=== PATIENT | male | born 1940 | race Caucasian/White ===

== ENCOUNTER 2017-02-20 12:06 | Inpatient (IN) | payer MEDICARE, BC ==
[2017-02-20] MEDS ORDERED: IPRATROPIUM-ALBUTEROL 3 ML NEB INHALATION STA (12:31)
--- NOTE | 2017-02-20 12:34 | ED ---
General Adult HPI - General Chief complaint: Shortness of Breath Stated complaint: SOB Time Seen by Provider: 02/20/17 12:10 Source: patient, RN notes reviewed Mode of arrival: ambulatory Limitations: no limitations - History of Present Illness Initial comments: This is a 76-year-old male presents emergency department with past medical history significant for aortic valve replacement with a sending aortic repair for aneurysm. Patient comes in today because he began getting short of breath over the last 2 weeks she states he's noticed a little bit of increased swelling to his legs as well. Patient denies any chest pain or palpitations. Patient denies any recent fever chills or cough. 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 Patient denies any lightheadedness dizziness or near syncopal episode. Patient denies any abdominal pain patient denies nausea vomiting diarrhea. Patient went to see his vice president global advertising sales today and the vice president global advertising sales recommended he come to the emergency department immediately. - Related Data Home Medications Medication Instructions Recorded Confirmed Aspirin 81 mg PO DAILY 01/18/14 02/20/17 Amiodarone HCl [Pacerone] 200 mg PO DAILY 02/20/17 02/20/17 Atorvastatin [Lipitor] 20 mg PO HS 02/20/17 02/20/17 Metoprolol Tartrate [Lopressor] 50 mg PO BID 02/20/17 02/20/17 Vit C/E/Zn/Coppr/Lutein/Zeaxan 1 cap PO DAILY 02/20/17 02/20/17 [Preservision Areds 2 Softgel] Warfarin [Coumadin] 7.5 mg PO HS 02/20/17 02/20/17 amLODIPine [Norvasc] 5 mg PO DAILY 02/20/17 02/20/17 Allergies Allergy/AdvReac Type Severity Reaction Status Date / Time No Known Allergies Allergy Verified 02/20/17 13:06 Review of Systems ROS Statement: Those systems with pertinent positive or pertinent negative responses have been documented in the HPI. ROS Other: All systems not noted in ROS Statement are negative. Past Medical History Past Medical History: Hyperlipidemia, Hypertension Additional Past Medical History / Comment(s): Pt states he is to have possible valve replacement in near future History of Any Multi-Drug Resistant Organisms: None Reported Past Surgical History: Cardiac Valve Replacement, Heart Catheterization Additional Past Surgical History / Comment(s): colonoscopy, AVR WITH ANEURYSMORRHAPHY 03/08/[address] ARVIZU. Past Anesthesia/Blood Transfusion Reactions: No Reported Reaction Past Psychological History: No Psychological Hx Reported Smoking Status: Former smoker Past Alcohol Use History: Occasional Past Drug Use History: None Reported - Past Family History Mother Family Medical History: Cancer General Exam - General Exam Comments Initial Comments: GENERAL: Patient is well-developed and well-nourished. Patient is nontoxic and well- hydrated and is in mild distress. ENT: Neck is soft and supple. No significant lymphadenopathy is noted. Oropharynx is clear. Moist mucous membranes. Neck has full range of motion without eliciting any pain. EYES: The sclera were anicteric and conjunctiva were pink and moist. Extraocular movements were intact and pupils were equal round and reactive to light. Eyelids were unremarkable. PULMONARY: Patient is to manage breath sounds in the bases and some extra wheezing. CARDIOVASCULAR: There is a regular rate and rhythm without any murmurs gallops or rubs. ABDOMEN: Soft and nontender with normal bowel sounds. No palpable organomegaly was noted. There is no palpable pulsatile mass. SKIN: Skin is clear with no lesions or rashes and otherwise unremarkable. NEUROLOGIC: Patient is alert and oriented x3. Cranial nerves II through XII are grossly intact. Motor and sensory are also intact. Normal speech, volume and content. Symmetrical smile. MUSCULOSKELETAL: Normal extremities with adequate strength and full range of motion. 1+ edema bilaterally LYMPHATICS: No significant lymphadenopathy is noted PSYCHIATRIC: Normal psychiatric evaluation. Limitations: no limitations Course Vital Signs 02/20/17 02/20/17 02/20/17 12:09 12:16 12:47 Temperature 97.3 F L Pulse Rate 64 66 66 Respiratory 22 24 Rate Blood Pressure 150/81 158/94 O2 Sat by Pulse 85 L 94 L Oximetry 02/20/17 02/20/17 02/20/17 12:53 13:08 14:07 Temperature 98.5 F Pulse Rate 66 63 65 Respiratory 17 17 Rate Blood Pressure 133/83 141/88 O2 Sat by Pulse 92 L 91 L Oximetry Medical Decision Making - Medical Decision Making EKG shows sinus rhythm at 64 bpm MS interval is 278 QRSs 120 QT intervals 426 QTC is 439. Patient's EKG shows no ST segment elevation or depression or T wave abnormalities are noted. Patient's chest x-ray shows congestive heart failure I started the patient Lasix Nitropaste. Because of the patient's history or so ordered the CT angiogram of the thoracic and abdominal aorta CT angiogram of the thoracic and abdominal aorta showed no dissection. However the patient does have congestive heart failure. I spoke with Dr. Crum he agreed to admit the patient admitted the patient I wrote admitting orders I continued Lasix Nitropaste on the floor. I consult to cardiology. - Lab Data Result diagrams: 02/20/17 12:45 02/20/17 12:45 Lab Results 02/20/17 02/20/17 02/20/17 Range/Units 12:45 12:45 12:45 WBC 6.5 (3.8-10.6) k/uL RBC 4.47 (4.30-5.90) m/uL Hgb 13.9 (13.0-17.5) gm/dL Hct 42.5 (39.0-53.0) % MCV 95.1 (80.0-100.0) fL MCH 31.1 (25.0-35.0) pg MCHC 32.7 (31.0-37.0) g/dL RDW 16.4 H (11.5-15.5) % Plt Count 194 (150-450) k/uL Neutrophils % 82 % Lymphocytes % 8 % Monocytes % 7 % Eosinophils % 1 % Basophils % 0 % Neutrophils # 5.3 (1.3-7.7) k/uL Lymphocytes # 0.5 L (1.0-4.8) k/uL Monocytes # 0.5 (0-1.0) k/uL Eosinophils # 0.0 (0-0.7) k/uL Basophils # 0.0 (0-0.2) k/uL Anisocytosis Slight PT (9.0-12.0) sec INR (<1.2) APTT (22.0-30.0) sec Sodium 137 (137-145) mmol/L Potassium 4.6 (3.5-5.1) mmol/L Chloride 103 (98-107) mmol/L Carbon Dioxide 29 (22-30) mmol/L Anion Gap 5 mmol/L BUN 15 (9-20) mg/dL Creatinine 0.72 (0.66-1.25) mg/dL Est GFR (MDRD) Af Amer >60 (>60 ml/min/1.73 sqM) Est GFR (MDRD) Non-Af >60 (>60 ml/min/1.73 sqM) Glucose 90 (74-99) mg/dL Calcium 8.4 (8.4-10.2) mg/dL Magnesium 2.0 (1.6-2.3) mg/dL Total Bilirubin 1.4 H (0.2-1.3) mg/dL AST 45 (17-59) U/L ALT 93 H (21-72) U/L Alkaline Phosphatase 62 (38-126) U/L Total Creatine Kinase 53 L (55-170) U/L CK-MB (CK-2) 2.0 (0.0-2.4) ng/mL CK-MB (CK-2) Rel Index 3.8 Troponin I <0.012 (0.000-0.034) ng/mL NT-Pro-B Natriuret Pep pg/mL Total Protein 6.0 L (6.3-8.2) g/dL Albumin 3.7 (3.5-5.0) g/dL 02/20/17 02/20/17 Range/Units 12:45 12:45 WBC (3.8-10.6) k/uL RBC (4.30-5.90) m/uL Hgb (13.0-17.5) gm/dL Hct (39.0-53.0) % MCV (80.0-100.0) fL MCH (25.0-35.0) pg MCHC (31.0-37.0) g/dL RDW (11.5-15.5) % Plt Count (150-450) k/uL Neutrophils % % Lymphocytes % % Monocytes % % Eosinophils % % Basophils % % Neutrophils # (1.3-7.7) k/uL Lymphocytes # (1.0-4.8) k/uL Monocytes # (0-1.0) k/uL Eosinophils # (0-0.7) k/uL Basophils # (0-0.2) k/uL Anisocytosis PT 39.4 H (9.0-12.0) sec INR 4.0 H (<1.2) APTT 44.2 H (22.0-30.0) sec Sodium (137-145) mmol/L Potassium (3.5-5.1) mmol/L Chloride (98-107) mmol/L Carbon Dioxide (22-30) mmol/L Anion Gap mmol/L BUN (9-20) mg/dL Creatinine (0.66-1.25) mg/dL Est GFR (MDRD) Af Amer (>60 ml/min/1.73 sqM) Est GFR (MDRD) Non-Af (>60 ml/min/1.73 sqM) Glucose (74-99) mg/dL Calcium (8.4-10.2) mg/dL Magnesium (1.6-2.3) mg/dL Total Bilirubin (0.2-1.3) mg/dL AST (17-59) U/L ALT (21-72) U/L Alkaline Phosphatase (38-126) U/L Total Creatine Kinase (55-170) U/L CK-MB (CK-2) (0.0-2.4) ng/mL CK-MB (CK-2) Rel Index Troponin I (0.000-0.034) ng/mL NT-Pro-B Natriuret Pep 1700 pg/mL Total Protein (6.3-8.2) g/dL Albumin (3.5-5.0) g/dL Critical Care Time Critical Care Time: Yes Total Critical Care Time: 35 Disposition Clinical Impression: Acute pulmonary edema Disposition: ADMITTED IP TO THIS HOSP Referrals: Timo Vega DO [Primary Care Provider] - 1-2 days Time of Disposition: 15:19
[2017-02-20 13:10] LABS: ALT 93 U/L (21-72); AST 45 U/L (17-59); Alkaline Phosphatase 62 U/L (38-126); Anion Gap 5 mmol/L; Blood Urea Nitrogen 15 mg/dL (9-20); Calcium 8.4 mg/dL (8.4-10.2); Carbon Dioxide 29 mmol/L (22-30); Chloride 103 mmol/L (98-107); Glucose 90 mg/dL (74-99); Non-African American GFR(MDRD) >60 (>60 ml/min/1.73 sqM); Potassium 4.6 mmol/L (3.5-5.1); Sodium 137 mmol/L (137-145); Total Bilirubin 1.4 mg/dL (0.2-1.3)
[2017-02-20 13:12] LABS: Partial Thromboplastin Time 44.2 sec (22.0-30.0); Prothrombin Time 39.4 sec (9.0-12.0)
[2017-02-20 13:17] LABS: Anisocytosis Slight; Basophils % (A) 0 %; CH 31.5; CHCM 33.3; Eosinophils % (A) 1 %; HCT 42.5 % (39.0-53.0); HDW 3.01; HGB 13.9 gm/dL (13.0-17.5); Luc # (Auto) 0.18; Luc % (Auto) 3; Lymphocytes # (A) 0.5 k/uL (1.0-4.8); Lymphocytes % (A) 8 %; MCH 31.1 pg (25.0-35.0); MCHC 32.7 g/dL (31.0-37.0); MCV 95.1 fL (80.0-100.0); Mean Platelet Volume 7.9; Monocytes # (A) 0.5 k/uL (0-1.0); Monocytes % (A) 7 %; Neutrophils # (A) 5.3 k/uL (1.3-7.7); Neutrophils % (A) 82 %; RBC 4.47 m/uL (4.30-5.90); RDW 16.4 % (11.5-15.5); WBC 6.5 k/uL (3.8-10.6); WBC (Perox) 6.92
[2017-02-20 13:18] LABS: Creatine Kinase 53 U/L (55-170)
[2017-02-20 13:32] LABS: Troponin I <0.012 ng/mL (0.000-0.034)
--- NOTE | 2017-02-20 13:42 | XR ---
EXAMINATION TYPE: XR chest 2V DATE OF EXAM: 02/20/2017 COMPARISON: 03/11/2014 HISTORY: 76-year-old male difficulty breathing TECHNIQUE: PA and lateral views FINDINGS: Median sternotomy wires are present. There is a prosthetic cardiac valve with mild cardiomegaly, diff use interstitial opacities, Nora B lines, and small pleural effusions with adjacent opacity. IMPRESSION: 1. CHF with interstitial pulmonary edema. 2. Small pleural effusions with adjacent atelectasis and/or consolidation.
[2017-02-20] MEDS ORDERED: NITROGLYCERIN OINT 1 INCH/GM PACKET TOPICAL STA (14:09)
[2017-02-20] MEDS ORDERED: FUROSEMIDE 10 MG/ML 4 ML VIAL IV STA (14:09)
[2017-02-20] MEDS ORDERED: RX INFO: IV CONTRAST WAS GIVEN 1 EACH MISC MISCELLANE PRN (14:10)
--- NOTE | 2017-02-20 15:22 | CT ---
EXAMINATION TYPE: CT angio thoracic/abd aorta DATE OF EXAM: 02/20/2017 COMPARISON: CT chest 01/26/2014 HISTORY: 76-year-old male SOB, history of valve replacement TECHNIQUE: Contiguous axial scanning of the chest, abdomen, and pelvis performed without and with IV Contrast, patient injected with 100 mL of Omnipaque 350. Coronal and sagittal MIP reconstructions per formed. 3-D reconstructions generated on a dedicated independent workstation. CT DLP: [id number] mGycm Automated exposure control for dose reduction was used. FINDINGS: CHEST: Median sternotomy wires are present with post-CABG changes and mediastinum. The heart is mildly enlarged without pericardial effusion.. Ascending aorta is aneurysmal at 5.8 cm versus 5.7 cm on 01/26/2014. Proximal arch measures 4.4 cm versus 4.3 cm on 01/26/2014. Upper descending thoracic aorta measures 3.7 cm versus 3.6 cm on 01/26/2014. The distal abdominal aorta is mildly aneurysmal at 3.1 cm. Initial noncontrast series shows no evidence for acute intramural hematoma. There is no evidence for aortic dissection. Enlarged precarinal lymph node measures 1.7 cm, increased in size from prior. Additional nonenlarged mediastinal lymph nodes also show increase in size from prior exam. Evaluation of the lungs shows underlying centrilobular emphysema with small right and trace left pleu ral effusions. There is bibasilar consolidation and patchy mid to lower lung groundglass and some upp er lung septal lines. Large caliber to the main right and left pulmonary artery segment 3.4 and 3.0 cm, respectively, sugge sting underlying pulmonary arterial hypertension. ABDOMEN: Early arterial phase imaging of the liver, gallbladder, adrenal glands, kidneys, spleen with tiny ant erior splenules, and pancreas show no gross anomaly. No dilated small bowel, free fluid, or free air. Normal appendix. Scattered moderate stool within the right hemicolon. Mild sigmoid diverticulosis with a redundant sigmoid colon. No mesenteric or retroperitoneal lymphadenopathy. Tortuous abdominal aorta with moderate atherosclerotic calcifications. 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 Pelvis: Bladder is urine distended. Prostate gland is enlarged measuring 4.7 cm wide. No abnormal fluid colle ction in the pelvis or pelvic lymphadenopathy. Bones: Moderate to advanced degenerative changes mid to lower lumbar spine with grade 1 anterolisthesis at L 4-L5. Endplate spondylosis mid to lower thoracic spine. No osseous destructive process. IMPRESSION: 1. NO EVIDENCE FOR ACUTE INTRAMURAL HEMATOMA OR AORTIC DISSECTION. 2. 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 THESE ARE ONLY A MILLIMETER LARGER COMPARED TO 01/26/2014. 3. 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 4. CORRELATE FOR CHF AND INTERSTITIAL PULMONARY EDEMA. SMALL RIGHT AND TRACE LEFT PLEURAL EFFUSIONS. 5. FOCAL CONSOLIDATION AT BOTH LUNG BASES COULD REPRESENT MORE CONFLUENT PULMONARY EDEMA OR PNEUMONIA . CLINICALLY CORRELATE. 6. AN ENLARGED 1.7 CM PRECARINAL LYMPH NODE IS LIKELY REACTIVE.
[2017-02-20] MEDS: NITROGLYCERIN OINT 1 INCH/GM PACKET TOPICAL SCH ×2 (20:05→22:06)
[2017-02-20] MEDS: METOPROLOL TARTRATE 50 MG TAB PO SCH (22:05)
[2017-02-20] MEDS: ATORVASTATIN 20 MG TAB PO SCH (22:05)
[2017-02-20] MEDS: FUROSEMIDE 10 MG/ML 4 ML VIAL IV SCH (23:47)
[2017-02-21 06:31] LABS: INR 3.6 (<1.2); Prothrombin Time 35.4 sec (9.0-12.0)
[2017-02-21] MEDS: ASPIRIN 81 MG PO SCH (07:38)
[2017-02-21] MEDS: METOPROLOL TARTRATE 50 MG TAB PO SCH (07:38)
[2017-02-21] MEDS: VIT A,C & E-LUTEIN-MINERALS 1 EACH TAB PO SCH (07:38)
[2017-02-21] MEDS: AMIODARONE 200 MG TAB PO SCH (07:38)
[2017-02-21] MEDS: amLODIPine 5 MG TAB PO SCH (07:38)
[2017-02-21] MEDS: FUROSEMIDE 10 MG/ML 4 ML VIAL IV SCH ×3 (07:38→21:06)
[2017-02-21] MEDS: NITROGLYCERIN OINT 1 INCH/GM PACKET TOPICAL SCH ×3 (07:42→21:21)
--- NOTE | 2017-02-21 09:09 | HP ---
DATE OF SERVICE: 02/20/2017 CHIEF COMPLAINT: Shortness of breath. HISTORY OF PRESENT ILLNESS: This 76-year-old gentleman with a past medical history of multiple medical problems including hypertension, hyperlipidemia, history of cardiac valve replacement, aortic valve replacement, history of aneurysmorrhaphy with Dr. Buckner in [address] Vega in the outpatient setting complaining of shortness of breath throughout the past several days. The patient had increased shortness of breath especially on exertion. The patient also had bilateral leg swelling also. The patient came to [facility]. Chest x-ray was reviewed, which showed evidence of CHF with interstitial pulmonary edema and small pleural effusion. Patient was admitted for further evaluation and treatment. A thoracic aortic CT was also done. It showed aneurysmal thoracic aorta with ascending aorta measuring up to 5.8 cm. 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 There is no history of any fever or rigors. No history of headache, loss of consciousness or seizures. PAST MEDICAL HISTORY: Hypertension, hyperlipidemia, history of aortic valve replacement with aneurysmorrhaphy. Medications prior to admission: 1. Coumadin 7.5 mg q.h.s. 2. Vitamin C. 3. Lipitor 20 mg q.h.s. 4. Pacerone 200 mg p.o. daily. 5. Norvasc 5 mg p.o. daily. 6. Lopressor 50 mg b.i.d. 7. Aspirin 81 mg daily. Allergies are none. FAMILY HISTORY: History of cancer in the family. SOCIAL HISTORY: Previous history of smoking. No history of current smoking. REVIEW OF SYSTEMS: ENT: No diminished hearing or diminished vision. CARDIOVASCULAR SYSTEM: No angina or palpitations. RESPIRATORY SYSTEM: No cough or hemoptysis. GI: No nausea. : No dysuria. NERVOUS SYSTEM: No numbness or weakness. ALLERGIES/IMMUNOLOGY: No history of asthma or hayfever. MUSCULOSKELETAL: As mentioned earlier. HEMATOLOGY/ONCOLOGY: No history of anemia. ENDOCRINE: No history of diabetes or hypothyroidism. CONSTITUTIONAL: As mentioned earlier. DERMATOLOGY: Negative. RHEUMATOLOGY: Negative. PSYCHIATRY: As mentioned earlier. PHYSICAL EXAM: The patient is alert and oriented x3. Pulse is 72, blood pressure 137/89, respirations 18, temperature 96.8, pulse ox 92% on 4 L. HEENT: Conjunctivae normal. NECK: No jugular venous distention. CARDIOVASCULAR: S1 and S2 muffled. Ejection systolic murmur. RESPIRATORY: Breath sounds diminished at the bases. Scattered rhonchi and crackles. ABDOMEN: Soft, nontender. No mass palpable. LEGS: Bilateral leg edema. NERVOUS SYSTEM: Higher function as mentioned earlier. Moves all 4 limbs. No focal motor or sensory deficits. LYMPHATICS: No lymphadenopathy of the neck, axillae or groin. SKIN: No ulcers, rashes or bleeding. LABS: CBC within normal limits. INR is 4. The bilirubin is 1.4. ASSESSMENT: 1. Congestive heart failure, acute exacerbation, ejection fraction unknown. 2. Aortic valve replacement, status post. 3. Coumadin monitoring. 4. History of hypertension. 5. Hyperlipidemia. 6. History of aneurysmorrhaphy for aortic aneurysm. 7. Remote history of nicotine dependence. RECOMMENDATIONS AND DISCUSSION: This 76-year-old gentleman presented with multiple complex medical issues. Will monitor the patient closely. Continue the current medications. Continue symptomatic treatment. Will initiate diuretics and beta blockers and continue to monitor. A 2-D echo. Cardiology consultations. Guarded prognosis because of multiple complex medical issues. Further recommendation to follow. See orders for details. MTDD
--- NOTE | 2017-02-21 11:10 | ECHOF ---
Referral Reason:[facility] MEASUREMENTS -------- HEIGHT: 175.3 cm WEIGHT: 98.0 kg BP: 115/65 RVIDd: 3.4 cm (< 3.3) IVSd: 1.3 cm (0.6 - 1.1) LVIDd: 5.6 cm (3.9 - 5.3) LVPWd: 1.4 cm (0.6 - 1.1) IVSs: 1.5 cm LVIDs: 4.6 cm LVPWs: 1.6 cm LAESV Index (A-L): 41.56 ml/m Ao Diam: 4.9 cm (2.0 - 3.7) AV Cusp: 2.1 cm (1.5 - 2.6) LA Diam: 5.1 cm (2.7 - 3.8) MV EXCURSION: 18.351 mm (> 18.000) MV EF SLOPE: 78 mm/s (70 - 150) EPSS: 0.5 cm MV E Magen: 0.85 m/s MV DecT: 257 ms MV A Magen: 0.40 m/s MV E/A Ratio: 2.12 AV maxP.88 mmHg AV meanP.70 mmHg RAP: 5.00 mmHg RVSP: 23.22 mmHg FINDINGS -------- Sinus rhythm. This was a technically adequate study. There is mild concentric left ventricular hypertrophy. Overall left ventricular systolic function is low-normal with, an EF between 50 - 55 %. Mitral Doppler inflow pattern suggests diastolic filling abnormality 14.11. The right ventricle is normal in size. LA is severely dilated >40 ml/m2 The right atrial size is normal. Peak/mean gradient across the Aortic Valve is 18.88mmHg / 10.70mmHg. Normally functioning bioprosthetic valve. Mild mitral annular calcification present. Moderate mitral regurgitation is present. Mild tricuspid regurgitation present. There is no evidence of pulmonary hypertension. The right ventricular systolic pressure, as measured by Doppler, is 23.22mmHg. Trace/mild (physiologic) pulmonic regurgitation. 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 There is no pericardial effusion. CONCLUSIONS -------- 1. There is mild concentric left ventricular hypertrophy. 2. There is no evidence of pulmonary hypertension. 3. The right ventricular systolic pressure, as measured by Doppler, is 23.22mmHg. 4. Trace/mild (physiologic) pulmonic regurgitation. 5. 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 6. There is no pericardial effusion. 7. Overall left ventricular systolic function is low-normal with, an EF between 50 - 55 %. 8. Mitral Doppler inflow pattern suggest diastolic filling abnormality 14.11. 9. LA is severely dilated >40 ml/m2 10. Peak/mean gradient across the Aortic Valve is 18.88mmHg / 10.70mmHg. 11. Normally functioning bioprosthetic valve. 12. Mild mitral annular calcification present. 13. Moderate mitral regurgitation is present. 14. Mild tricuspid regurgitation present. PIECE WORK CHECKER: Martha Wolfe RDCS
[2017-02-21 14:20] VITALS: BMI 32.0
[2017-02-21] MEDS: PANTOPRAZOLE 40 MG TABLET PO SCH (16:39)
[2017-02-21] MEDS ORDERED: WARFARIN 7.5 MG TAB PO SCH (21:00)
[2017-02-21] MEDS: ATORVASTATIN 20 MG TAB PO SCH (21:06)
[2017-02-22] MEDS: PANTOPRAZOLE 40 MG TABLET PO SCH (06:38)
--- NOTE | 2017-02-22 07:36 | PN ---
DATE OF SERVICE: 02/21/2017 This 76-year-old gentleman who was admitted with CHF acute exacerbation had 2-D echo with Doppler today. The patient is receiving diuretics. The patient is diuresing significantly. The 2-D echo showed normal ejection fraction about 50 to 55% and LA was severely dilated about 40 mL and peak mean gradient of aortic valve was 18.8/10. Normally functioning bioprosthetic valve was noted. Moderate mitral regurgitation was noted. Aortic root was dilated at 4.8 cm. Mild tricuspid regurgitation also noted. Patient will be closely monitored at this time. There is no history of fever, rigors. No history of headache, loss of consciousness or seizures. PAST MEDICAL HISTORY: Reviewed. REVIEW OF SYSTEMS: CARDIOVASCULAR: No angina. RESPIRATORY: As mentioned earlier. GI: As mentioned. : No dysuria. NERVOUS SYSTEM: No numbness or weakness. CURRENT MEDICATIONS: 1. Cordarone 200 mg. 2. Norvasc 5 mg 3. Aspirin 81 mg 4. Lipitor 20 mg q.h.s. 5. Lasix 40 IV q.8. 6. Lopressor 25 mg daily. 7. Nitro-Bid ointment. 8. Protonix. PHYSICAL EXAMINATION: The patient is alert and oriented x3. Pulse is 64, blood pressure 107/68, respirations 16, temperature 97.4, pulse ox 92% on 2-L. HEENT: Conjunctivae normal. NECK: No jugular venous distention. CARDIOVASCULAR: S1, S2. Ejection systolic murmur present. RESPIRATORY: Breath sounds diminished at the bases. A few scattered rhonchi and crackles. ABDOMEN: Soft, nontender, no mass palpable. LEGS: No edema, no swelling. NERVOUS SYSTEM: No focal deficits. LABS: INR 3.6 otherwise other labs awaited. Total bilirubin 1.4. ASSESSMENT: 1. Congestive heart failure acute exacerbation with acute on chronic diastolic dysfunction, ejection fraction 50 to 55%. 2. Moderate mitral regurgitation. 3. Status post aortic valve replacement. 4. Coumadin monitoring. 5. Hypertension. RECOMMENDATIONS AND DISCUSSION: I recommend to continue current medications, continue monitoring, continue symptomatic treatment. Otherwise continue with dieresis, monitor closely with Cardiology. Guarded prognosis. Fluid restriction. No added salt diet. Further recommendations to follow. MTDD
--- NOTE | 2017-02-22 07:51 | CONS ---
DATE OF SERVICE: 02/21/2017 HISTORY OF PRESENT ILLNESS: Patient is a 76-year-old male with a history of hypertension, high cholesterol and aortic valve replacement in 2013. Patient spends his sam[place] in [place] and in September he was in [place] and started to experience shortness of breath that came on rather acutely, ended up going to the hospital and was found to be in an arrhythmia, believed to be A. fib. Patient was started on amiodarone at that time and returned to sinus rhythm and actually thought that is what was happening a couple of days ago or approximately 2 weeks ago when patient started to experience shortness of breath again with associated dry cough and bilateral leg swelling. Patient also states that he had put on over 10 pounds in weight prior to this worsening shortness of breath. Patient had a CAT scan, which did show some lower lobe opacities, which we have been consulted for further evaluation. 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 PAST SURGICAL HISTORY: Aortic valve replacement in 2013 and cardiac cath. ALLERGIES: No known drug allergies. Medications patient is on at home include: 1. Aspirin 81 mg daily. 2. Amiodarone 200 mg daily. 3. Lipitor 20 mg daily. 4. Lopressor 50 mg p.o. b.i.d. 5. PreserVision vitamins 1 cap daily. 6. Coumadin 7.5 mg daily. 7. Norvasc 5 mg daily. SOCIAL HISTORY: Patient does have a history of smoking, quit over 30 years ago. Patient does drink alcohol moderately. Patient worked on automobile brakes for many years. FAMILY HISTORY: Mother at 94 from old age. Father at 57 from complications of a car accident. REVIEW OF SYSTEMS: GENERAL: Positive for weight gain prior to admission. Negative for any fever or chills. HEENT: Negative for any headaches, dizziness, light-headedness. Denies any acute visual changes. Denies any difficulty hearing. Denies any seasonal allergies, sore throat or difficulty swallowing. RESPIRATORY: Positive for shortness of breath with a dry cough prior to admission, however, patient states that has resolved. CARDIOVASCULAR: Negative for any chest pain or palpitations. Does have a history of paroxysmal A. fib and aortic valve surgery replacement. GI: Negative for abdominal pain, nausea, vomiting, diarrhea or constipation. : Negative for any dysuria or hematuria. ENDOCRINE: Negative for diabetes mellitus or thyroid disease. MUSCULOSKELETAL: Negative for any arthritic pain. NEUROLOGIC: Negative for any history of seizures, numbness or tingling of the extremities. PSYCHIATRIC: Negative for any anxiety or depression. ON PHYSICAL EXAM: GENERAL: A pleasant 76-year-old gentleman who is calm and cooperative. VITAL SIGNS: Temp is 97.6, heart rate is 72, respiratory rate is 16, blood pressure is 116/69, O2 sats 93% on 2 L O2 via nasal cannula. HEENT: Head is normocephalic. Pupils equal, round and react to light. Ears and nose no discharge is noted. Mouth with Mallampati class 4. Moist mucous membranes and neck is short, supple. Trachea is midline. LUNGS: Decreased to the bases bilaterally. HEART: S1 and S2 are heard. Not tachycardia or murmurs. ABDOMEN: Soft. Bowel sounds are positive. EXTREMITIES: No edema. NEUROLOGIC: The patient is alert and oriented. LABS: PT is 35.4 with an INR of 3.6. Labs from admission were reviewed as well. Sodium is 137, potassium is 4.6, chloride is 103, CO2 is 29, anion gap is 5, BUN is 15, creatinine 0.72. Glucose 90. Calcium 8.4. Magnesium 2.0. Bilirubin 1.4. AST 45, ALT 93, alk phos 62, total CK 53, MB 2.0, relative index 3.8. Troponins less than 0.012 x2 respectively. BNP 1700. Total protein is 6.0 and albumin is 3.7. IMAGING: Chest x-ray shows CHF with interstitial pulmonary edema and small pleural effusions with adjacent atelectasis or consolidation. CT of the thoracic aorta impression no evidence for acute intramural hematoma or aortic dissection, aneurysmal thoracic aorta with the ascending aorta measuring up to 5.8 cm and upper descending thoracic aorta measuring 4.4 cm. These are only a millimeter larger as compared to 01/26/2014. Ectatic infrarenal abdominal aorta 2.7 cm and aneurysmal right common iliac artery. Correlate for CHF and interstitial pulmonary edema. Small right and trace left pleural effusions. Focal consolidation at both lung bases, could represent more confluent pulmonary edema or pneumonia, clinically correlate. An enlarged 1.7 cm precarinal lymph node is likely reactive. Echocardiogram was reviewed. It shows no pulmonary hypertension. IMPRESSION: 1. Bilateral lower lobe opacities on CT suspected to be secondary to fluid overload. Congestive heart failure is likely. 2. History of aortic valve replacement in 2013. 3. History of hypertension. 4. Multiple aneurysms being followed by thoracic surgery. PLAN: Continue to treat CHF with oxygen to maintain sats greater than or equal to 90%. Continue diuresis with Lasix. Continue GI and DVT prophylaxis. Patient is therapeutic on Coumadin. Will add incentive spirometry and continue to follow patient closely with you making further changes as necessary. Thank you for the consultation. MOLLY
[2017-02-22] MEDS: FUROSEMIDE 10 MG/ML 4 ML VIAL IV SCH ×2 (08:21→19:35)
[2017-02-22] MEDS: VIT A,C & E-LUTEIN-MINERALS 1 EACH TAB PO SCH (08:21)
[2017-02-22] MEDS: amLODIPine 5 MG TAB PO SCH (08:21)
[2017-02-22] MEDS: AMIODARONE 200 MG TAB PO SCH (08:21)
[2017-02-22] MEDS: ASPIRIN 81 MG PO SCH (08:21)
[2017-02-22] MEDS: METOPROLOL TARTRATE 25 MG TAB PO SCH (08:21)
[2017-02-22 10:23] LABS: INR 2.2 (<1.2); Prothrombin Time 21.4 sec (9.0-12.0)
[2017-02-22] MEDS: NITROGLYCERIN OINT 1 INCH/GM PACKET TOPICAL SCH ×3 (12:08→20:16)
--- NOTE | 2017-02-22 14:59 | PN ---
DATE OF SERVICE: 02/22/17 The patient was seen on 02/22/17. He has been hemodynamically stable. He is less short of breath and has lost a significant amount of fluid as well as weight. On physical examination, his vital signs are stable. He is afebrile. His chest is relatively clear. Cardiovascular system reveals an S1, S2. Abdomen is soft. There is no pedal edema. Labs and CT scan were reviewed. IMPRESSION: 1. Acute pulmonary edema, secondary to congestive heart failure. 2. The patient on Amiodarone ( ) most likely consistent with acute pulmonary edema from congestive heart failure, cannot rule out amiodarone toxicity. At this point in time, from a pulmonary standpoint, agree with discharge planning. The patient was counseled regarding the need to maintain a tight weight control from a fluid perspective and to follow-up in our office in one to two weeks time. Physiological testing, baseline as well as follow-up CT scans may be required as he was on Amiodarone. Would watch him closely as an outpatient from a pulmonary standpoint. Depending on how he does we shall make further changes to his care. I would like to thank you for allowing us to care for him. MOLLY
--- NOTE | 2017-02-22 15:15 | P.PN ---
Subjective Principal diagnosis: Acute Pulmonary Edema This is a pleasant 76-year-old gentleman with a history of hypertension, high cholesterol and aortic valve replacement 2013. He was sent from the office by Dr. MARK Falk after presenting with complaints of shortness of breath. Echo cardiogram at that time showed questionable worsening and aortic dilatation. He was sent here for computed tomography scan which showed stable thoracic aortic aneurysm. The family patient was found to have significant pulmonary edema. Diuresing well. He is breathing quite a bit better and his edema has improved. Echocardiogram done here showed an ejection fraction of 50-55% with a diastolic filling abnormality. Objective - Vital Signs Vital signs: Vital Signs Temp 98.2 F 02/22/17 08:22 Pulse 77 02/22/17 08:22 Resp 18 02/22/17 08:22 BP 112/69 02/22/17 08:22 Pulse Ox 93 L 02/22/17 08:22 Intake & Output 02/21/17 02/22/17 02/22/17 18:59 06:59 18:59 Intake Total 480 Balance 480 Weight 98.4 kg 96.6 kg Intake: Oral 480 Other: # Voids 1 - Exam PHYSICAL EXAMINATION: HEENT: Head is atraumatic, normocephalic. Pupils equal, round. Neck is supple. There is no elevated jugular venous pressure. HEART EXAMINATION: Heart sounds regular, S1 and S2 normal with a systolic murmur. CHEST EXAMINATION: Lungs are clear to auscultation and precussion. No chest wall tenderness is noted on palpation or with deep breathing. ABDOMEN: Soft, nontender. Bowel sounds are heard. No organomegaly noted. EXTREMITIES: 2+ peripheral pulses with no evidence of peripheral edema and no calf tenderness noted. NEUROLOGIC patient is awake, alert and oriented x3. . - Labs CBC & Chem 7: 02/20/17 12:45 02/20/17 12:45 Labs: Abnormal Lab Results - Last 24 Hours (Table) 02/22/17 Range/Units 09:37 PT 21.4 H (9.0-12.0) sec INR 2.2 H (<1.2) Assessment and Plan Plan: Assessment and plan #1 acute pulmonary edema, secondary to acute on chronic diastolic congestive heart failure #2 ascending aortic aneurysm, stable #3 hypertension Crowning Hammer Operator perspective, we will switch to by mouth Lasix. Anticipate patient be discharged home. He will follow up soon with Dr. MARK Falk. MASTER CONTROL SUPERVISOR note has been reviewed, I agree with a documented findings and plan of care. Patient was seen and examined.
[2017-02-22] MEDS: DOCUSATE 100 MG CAP PO SCH ×2 (15:30→20:16)
--- NOTE | 2017-02-22 15:43 | XR ---
EXAMINATION TYPE: XR chest 1V portable DATE OF EXAM: 02/22/2017 COMPARISON: 02/20/2017 HISTORY: Congestive heart failure. TECHNIQUE: Single frontal view of the chest is obtained. FINDINGS: Intact midline sternotomy wires are present as well as cardiac valvular replacement. Incid ental note is made of atheromatous calcification of the right internal carotid artery. Degree of inte rstitial edema and cephalization has decreased in the interim. Blunting of the costophrenic angles hartmann s also improved in the interim. Cardiac silhouette is again enlarged. IMPRESSION: Improving interstitial pulmonary edema, now mild, and resolved trace pleural effusions.
--- NOTE | 2017-02-22 16:24 | PN ---
DATE OF SERVICE: 02/22/2017 This 76-year-old gentleman who was admitted with CHF acute exacerbation is being closely monitored. No fever, no cough. The patient has improved significantly. On exam, alert and oriented x3. Pulse 73, blood pressure 127/60, temperature 97.4, pulse ox 91% on 3 liters. HEENT: Conjunctivae normal. NECK: No JVD. CARDIAC: S1/S2 normal. Ejection systolic murmur. RESPIRATORY: Diminished breath sounds at the bases. A few rhonchi, no crackles. ABDOMEN: Soft, nontender. LEGS: No swelling. NEURO: No focal deficit. LABS: INR 2.2. ASSESSMENT: 1. Congestive heart failure acute exacerbation with acute on chronic diastolic dysfunction, ejection fraction 50-55%. 2. Moderate mitral regurgitation. 3. Status post aortic valve replacement. 4. Coumadin monitoring. 5. Hypertension. RECOMMENDATIONS AND DISCUSSION: Continue current medication, continue to monitor, continue symptomatic treatment. Otherwise, at this time will monitor the patient closely and I will repeat a chest x-ray, monitor fluid/electrolyte balance closely. Further recommendations to follow. Resume the Coumadin. Monitor PT and INR closely. MOLLY
[2017-02-22] MEDS ORDERED: WARFARIN 5 MG TAB PO ONE (18:00)
[2017-02-22] MEDS: FUROSEMIDE 40 MG TAB PO SCH (18:32)
[2017-02-22] MEDS: ATORVASTATIN 20 MG TAB PO SCH (20:16)
[2017-02-23] MEDS: PANTOPRAZOLE 40 MG TABLET PO SCH (06:10)
[2017-02-23] MEDS: amLODIPine 5 MG TAB PO SCH (07:46)
[2017-02-23] MEDS: METOPROLOL TARTRATE 25 MG TAB PO SCH (07:46)
[2017-02-23] MEDS: DOCUSATE 100 MG CAP PO SCH (07:46)
[2017-02-23] MEDS: AMIODARONE 200 MG TAB PO SCH (07:46)
[2017-02-23] MEDS: FUROSEMIDE 40 MG TAB PO SCH (07:46)
[2017-02-23] MEDS: ASPIRIN 81 MG PO SCH (07:46)
[2017-02-23] MEDS: NITROGLYCERIN OINT 1 INCH/GM PACKET TOPICAL SCH ×2 (07:47→11:49)
[2017-02-23] MEDS: VIT A,C & E-LUTEIN-MINERALS 1 EACH TAB PO SCH (07:47)
[2017-02-23 08:02] VITALS: RESP 18
--- NOTE | 2017-02-23 09:58 | P.PN ---
Subjective Principal diagnosis: CHF This is a pleasant 76-year-old female with history of hypertension, hyperlipidemia, prior aortic valve replacement who follows with Dr. Obed Falk in the office. He was admitted to the hospital with congestive cardiac failure. Patient was seen in the office prior to admission here, echocardiogram revealed questionable worsening as well as aortic patient underwent a computed tomography scan which showed stable thoracic aortic aneurysm. Echocardiogram with Doppler study repeated here showed ejection fraction of 50-55% LA severely dilated normally functioning bioprosthetic valve moderate mitral regurgitation. Patient has diuresed well here on IV Lasix, was changed over to oral diuretics yesterday. Blood pressure this morning 120/60 with a heart rate in the 70s, 92% on room air. INR this morning not obtained. Objective - Vital Signs Vital signs: Vital Signs Temp 97.9 F 02/23/17 07:55 Pulse 71 02/23/17 07:55 Resp 18 02/23/17 07:55 BP 120/76 02/23/17 07:55 Pulse Ox 92 L 02/23/17 07:55 Intake & Output 02/22/17 02/23/17 02/23/17 18:59 06:59 18:59 Intake Total 237 Output Total 350 Balance -113 Weight 96.8 kg Intake: Oral 237 Output: Urine 350 Other: Voiding Method Toilet Toilet # Voids 1 0 1 - Exam PHYSICAL EXAMINATION: HEENT: Head is atraumatic, normocephalic. Pupils equal, round. Neck is supple. There is no elevated jugular venous pressure. HEART EXAMINATION: Heart S1 and S2 systolic murmur is heard. CHEST EXAMINATION: Lungs are clear to auscultation and precussion. No chest wall tenderness is noted on palpation or with deep breathing. ABDOMEN: Soft, nontender. Bowel sounds are heard. No organomegaly noted. EXTREMITIES: 2+ peripheral pulses with no evidence of peripheral edema and no calf tenderness noted. NEUROLOGIC [patient is awake, alert and oriented -3.] . - Labs CBC & Chem 7: 02/20/17 12:45 02/20/17 12:45 Labs: Abnormal Lab Results - Last 24 Hours (Table) 02/22/17 Range/Units 09:37 PT 21.4 H (9.0-12.0) sec INR 2.2 H (<1.2) Assessment and Plan (1) Diastolic CHF, acute on chronic Status: Acute (2) Hx of aortic valve replacement Status: Acute (3) AAA (abdominal aortic aneurysm) Status: Acute (4) HTN (hypertension) Status: Acute (5) Hyperlipemia Status: Acute Plan: Plan From cardiology's perspective, patient may be able to be discharged home today. We will make him a follow-up appointment to see Dr. MARK Falk in the office post discharge. DNP note has been reviewed, I agree with a documented findings and plan of care. Patient was seen and examined.
[2017-02-23 11:48] VITALS: BP 105/73; PULSE 66; TEMP 97.1
[2017-02-23 14:55] LABS: Anion Gap 12 mmol/L; Blood Urea Nitrogen 27 mg/dL (9-20); Carbon Dioxide 33 mmol/L (22-30); Chloride 94 mmol/L (98-107); Glucose 116 mg/dL (74-99); Non-African American GFR(MDRD) >60 (>60 ml/min/1.73 sqM); Sodium 139 mmol/L (137-145)
--- NOTE | 2017-02-23 19:13 | PN ---
DATE OF SERVICE: 02/23/17 The patient was seen on 02/23/17. He has been hemodynamically stable. He is not short of breath. On physical examination, his blood pressure is 120/76. Respiratory rate 18. Pulse rate 71. Temperature 97.9. O2 sat on room air is 92%. HEENT: Unremarkable. Chest is clear. Cardiovascular system reveals an S1, S2. Abdomen is soft. There is no pedal edema. His weight is 96.8 kg. IMPRESSION: 1. Acute pulmonary edema, secondary to congestive heart failure. 2. The patient on Amiodarone, will need close outpatient follow-up. 3. Cardiomyopathy with coronary artery disease. Agree with possible discharge planning. We will be happy to see him in the outpatient setting if need be. MOLLY
--- NOTE | 2017-02-26 14:24 | DS ---
DATE OF SERVICE: 02/23/2017 FINAL DIAGNOSES: 1. Congestive heart failure acute exacerbation with acute on chronic diastolic dysfunction, ejection fraction of 50% to 55% with moderate mitral regurgitation. 2. Status post aortic valve replacement. 3. Coumadin monitoring. 4. Hypertension. DISCHARGE DISPOSITION: The patient will be discharged in a stable condition with guarded prognosis. HISTORY OF PRESENT ILLNESS: This is a 76-year-old gentleman with the past medical history of multiple medical problems with CHF acute exacerbation, treated with diuretics, improved significantly. Cardiology and Pulmonology saw the patient. On exam, vitals are stable. CARDIOVASCULAR SYSTEM: S1, S2, muffled. ABDOMEN: Soft. NERVOUS SYSTEM: No focal deficits. DISCHARGE ADVICE: 1. Diet is cardiac. 2. Activity limited until followup. 3. Follow up with Dr. Trinity Falk in 2 to 3 days. 4. Follow up with Dr. Vega in 1 to 2 days. 5. Follow up with Pulmonary as recommended. Medications will be: 1. Pacerone 200 mg p.o. daily. 2. Aspirin 81 mg daily. 3. Lipitor 20 mg q.h.s. 4. Lasix 40 mg p.o. b.i.d., dose to be adjusted in the outpatient setting. 5. Zestril 5 mg p.o. daily. 6. Lopressor 50 mg p.o. b.i.d. 7. Vitamin 1 p.o. daily. 8. Coumadin 7.5 mg q.h.s. Monitor PT, INR, CBC, and BMP in the outpatient setting. Once again, the patient will be discharged in a stable condition with guarded prognosis. TOTAL TIME TAKEN: 35 minutes. MTDD
== END 2017-02-23 15:52 | disposition home or self-care (01) | DRG 293 ==
LOC: EC 12:06 → 6SEL 15:20
PROVIDERS: ADMIT Hospitalist; ATTEND Hospitalist
DX: I11.0 Hypertensive heart disease with heart failure (principal); I71.2 Thoracic aortic aneurysm, without rupture; I42.9 Cardiomyopathy, unspecified; I08.1 Rheumatic disorders of both mitral and tricuspid valves; I48.91 Unspecified atrial fibrillation; E78.5 Hyperlipidemia, unspecified; E78.00 Pure hypercholesterolemia, unspecified; I25.10 Atherosclerotic heart disease of native coronary artery without angina pectoris; I50.33 Acute on chronic diastolic (congestive) heart failure; I71.4 Abdominal aortic aneurysm, without rupture; I72.3 Aneurysm of iliac artery; T46.2X5A Adverse effect of other antidysrhythmic drugs, initial encounter; Z79.82 Long term (current) use of aspirin; Z79.01 Long term (current) use of anticoagulants; Z79.899 Other long term (current) drug therapy; Z87.891 Personal history of nicotine dependence; Z95.2 Presence of prosthetic heart valve; Y92.009 Unspecified place in unspecified non-institutional (private) residence as the place of occurrence of the external cause
CPT/HCPCS: 36415; 71010; 71020; 71275; 75635; 80048; 80053; 82550; 82553; 83735; 83880; 84484; 85025; 85610; 85730; 93005; 93306; 94640; 96374; 99291

== ENCOUNTER 2017-11-11 22:15 | Inpatient (IN) | payer OTHER, MEDICARE, BC ==
[2017-11-11] MEDS ORDERED: PANTOPRAZOLE 40 MG/10 ML VIAL IVP STA (22:23)
--- NOTE | 2017-11-11 22:50 | ED ---
General Adult HPI - General Chief complaint: Recheck/Abnormal Lab/Rx Stated complaint: Low HGB Time Seen by Provider: 11/11/17 22:22 Source: patient, RN notes reviewed Mode of arrival: ambulatory Limitations: no limitations - History of Present Illness Initial comments: 77-year-old male presenting for evaluation of abnormal outpatient laboratory study. Patient was called by his primary care physician today with a low hemoglobin at 5.0. Patient does admit that he has had dark stools for approximately one month. Denies any abdominal pain. Denies diarrhea. States he thinks the dark stools have improved over the past week. He does report some exertional dyspnea and lightheadedness with standing. Denies any chest pain. Denies any shortness of breath at rest. Patient is currently on Coumadin with history of valve replacement. - Related Data Home Medications Medication Instructions Recorded Confirmed Aspirin 81 mg PO DAILY 01/18/14 02/20/17 Amiodarone HCl [Pacerone] 200 mg PO DAILY 02/20/17 02/20/17 Atorvastatin [Lipitor] 20 mg PO HS 02/20/17 02/20/17 Metoprolol Tartrate [Lopressor] 50 mg PO BID 02/20/17 02/20/17 Vit C/E/Zn/Coppr/Lutein/Zeaxan 1 cap PO DAILY 02/20/17 02/20/17 [Preservision Areds 2 Softgel] Warfarin [Coumadin] 7.5 mg PO HS 02/20/17 02/20/17 Previous Rx's Medication Instructions Recorded Furosemide [Lasix] 40 mg PO BID@0900,1600 #60 tab 02/23/17 Lisinopril [Zestril] 5 mg PO DAILY #30 tablet 02/23/17 Allergies Allergy/AdvReac Type Severity Reaction Status Date / Time No Known Allergies Allergy Verified 11/11/17 22:21 Review of Systems ROS Statement: Those systems with pertinent positive or pertinent negative responses have been documented in the HPI. ROS Other: All systems not noted in ROS Statement are negative. Past Medical History Past Medical History: Hyperlipidemia, Hypertension Additional Past Medical History / Comment(s): Pt states he is to have possible valve replacement in near future History of Any Multi-Drug Resistant Organisms: None Reported Past Surgical History: Cardiac Valve Replacement, Heart Catheterization Additional Past Surgical History / Comment(s): colonoscopy, AVR WITH ANEURYSMORRHAPHY 03/08/[address] ARVIZU. Past Anesthesia/Blood Transfusion Reactions: No Reported Reaction Past Psychological History: No Psychological Hx Reported Smoking Status: Former smoker Past Alcohol Use History: Occasional Past Drug Use History: None Reported - Past Family History Mother Family Medical History: Cancer General Exam Limitations: no limitations General appearance: alert, in no apparent distress Head exam: Present: atraumatic, normocephalic Eye exam: Present: normal appearance, PERRL, EOMI ENT exam: Present: normal exam Neck exam: Present: normal inspection. Absent: tenderness, meningismus Respiratory exam: Present: normal lung sounds bilaterally. Absent: respiratory distress Cardiovascular Exam: Present: regular rate, normal rhythm, systolic murmur GI/Abdominal exam: Present: soft, distended. Absent: tenderness Rectal exam: Present: normal inspection, normal rectal tone, heme (-) stool. Absent: black stool, bloody stool, hemorrhoids Extremities exam: Present: normal inspection, normal capillary refill. Absent: pedal edema Neurological exam: Present: alert, oriented X3, CN II-XII intact. Absent: motor sensory deficit Psychiatric exam: Present: normal affect, normal mood Skin exam: Present: warm, dry, intact. Absent: cyanosis, diaphoretic Course Vital Signs 11/11/17 11/11/17 11/12/17 22:19 23:44 00:36 Temperature 99.8 F H 97.9 F Pulse Rate 77 69 69 Respiratory 18 16 16 Rate Blood Pressure 131/67 114/62 117/68 O2 Sat by Pulse 99 96 96 Oximetry 11/12/17 11/12/17 00:46 00:51 Temperature 97.3 F L 97.5 F L Pulse Rate 67 65 Respiratory 16 16 Rate Blood Pressure 111/67 118/67 O2 Sat by Pulse 96 Oximetry Medical Decision Making - Medical Decision Making 77-year-old male presenting with low hemoglobin from outpatient laboratory study and melanotic stool. He does state is melanotic stool has resolved over the past one week. On exam normal stool color, no bright red rectal bleeding, Hemoccult is negative. Hemoglobin is repeated, 6.2. Patient is symptomatic having exertional dyspnea and lightheadedness. INR is therapeutic at 2.1. There is mild creatinine elevation 1.4 from baseline. Patient receives 1 units of packed RBCs for symptomatic anemia. As his rectal exam is currently normal with no active bleeding. Coumadin will be held but no reversal is given at this time as patient does have prosthetic heart valve. Hemoglobin will be rechecked in the morning. Patient is given IV Protonix. Gastroenterology will be placed on consult for concern of upper GI bleed - Lab Data Result diagrams: 11/11/17 21:42 11/11/17 21:42 Lab Results 11/11/17 11/11/17 11/11/17 Range/Units 21:42 21:42 21:42 WBC 5.1 (3.8-10.6) k/uL RBC 2.65 L (4.30-5.90) m/uL Hgb 6.2 L* (13.0-17.5) gm/dL Hct 21.0 L (39.0-53.0) % MCV 79.4 L (80.0-100.0) fL MCH 23.3 L (25.0-35.0) pg MCHC 29.4 L (31.0-37.0) g/dL RDW 20.7 H (11.5-15.5) % Plt Count 202 (150-450) k/uL Neutrophils % 78 % Lymphocytes % 12 % Monocytes % 6 % Eosinophils % 1 % Basophils % 0 % Neutrophils # 4.0 (1.3-7.7) k/uL Lymphocytes # 0.6 L (1.0-4.8) k/uL Monocytes # 0.3 (0-1.0) k/uL Eosinophils # 0.1 (0-0.7) k/uL Basophils # 0.0 (0-0.2) k/uL Hypochromasia Marked Poikilocytosis Marked Anisocytosis Moderate Microcytosis Moderate PT (9.0-12.0) sec INR (<1.2) APTT (22.0-30.0) sec Sodium 143 (137-145) mmol/L Potassium 4.2 (3.5-5.1) mmol/L Chloride 102 (98-107) mmol/L Carbon Dioxide 27 (22-30) mmol/L Anion Gap 14 mmol/L BUN 34 H (9-20) mg/dL Creatinine 1.40 H (0.66-1.25) mg/dL Est GFR (CKD-EPI)AfAm 55 (>60 ml/min/1.73 sqM) Est GFR (CKD-EPI)NonAf 48 (>60 ml/min/1.73 sqM) Glucose 114 H (74-99) mg/dL Calcium 8.7 (8.4-10.2) mg/dL Magnesium 2.4 H (1.6-2.3) mg/dL Total Bilirubin 0.6 (0.2-1.3) mg/dL AST 29 (17-59) U/L ALT 22 (21-72) U/L Alkaline Phosphatase 66 (38-126) U/L Total Creatine Kinase 37 L (55-170) U/L CK-MB (CK-2) 0.9 (0.0-2.4) ng/mL CK-MB (CK-2) Rel Index 2.4 Troponin I <0.012 (0.000-0.034) ng/mL Total Protein 6.2 L (6.3-8.2) g/dL Albumin 4.0 (3.5-5.0) g/dL Lipase 74 (23-300) U/L Stool Occult Blood (Negative) Blood Type Blood Type Recheck Antibody Screen Crossmatch Spec Expiration Date 11/11/17 11/11/17 11/11/17 Range/Units 21:42 21:42 21:42 WBC (3.8-10.6) k/uL RBC (4.30-5.90) m/uL Hgb (13.0-17.5) gm/dL Hct (39.0-53.0) % MCV (80.0-100.0) fL MCH (25.0-35.0) pg MCHC (31.0-37.0) g/dL RDW (11.5-15.5) % Plt Count (150-450) k/uL Neutrophils % % Lymphocytes % % Monocytes % % Eosinophils % % Basophils % % Neutrophils # (1.3-7.7) k/uL Lymphocytes # (1.0-4.8) k/uL Monocytes # (0-1.0) k/uL Eosinophils # (0-0.7) k/uL Basophils # (0-0.2) k/uL Hypochromasia Poikilocytosis Anisocytosis Microcytosis PT (9.0-12.0) sec INR (<1.2) APTT 26.6 (22.0-30.0) sec Sodium (137-145) mmol/L Potassium (3.5-5.1) mmol/L Chloride (98-107) mmol/L Carbon Dioxide (22-30) mmol/L Anion Gap mmol/L BUN (9-20) mg/dL Creatinine (0.66-1.25) mg/dL Est GFR (CKD-EPI)AfAm (>60 ml/min/1.73 sqM) Est GFR (CKD-EPI)NonAf (>60 ml/min/1.73 sqM) Glucose (74-99) mg/dL Calcium (8.4-10.2) mg/dL Magnesium (1.6-2.3) mg/dL Total Bilirubin (0.2-1.3) mg/dL AST (17-59) U/L ALT (21-72) U/L Alkaline Phosphatase (38-126) U/L Total Creatine Kinase (55-170) U/L CK-MB (CK-2) (0.0-2.4) ng/mL CK-MB (CK-2) Rel Index Troponin I (0.000-0.034) ng/mL Total Protein (6.3-8.2) g/dL Albumin (3.5-5.0) g/dL Lipase (23-300) U/L Stool Occult Blood Negative (Negative) Blood Type A Positive Blood Type Recheck No Antibody Screen NEGATIVE Crossmatch See Detail Spec Expiration Date 11/14/2017 - 234111/11/17 Range/Units 21:42 WBC (3.8-10.6) k/uL RBC (4.30-5.90) m/uL Hgb (13.0-17.5) gm/dL Hct (39.0-53.0) % MCV (80.0-100.0) fL MCH (25.0-35.0) pg MCHC (31.0-37.0) g/dL RDW (11.5-15.5) % Plt Count (150-450) k/uL Neutrophils % % Lymphocytes % % Monocytes % % Eosinophils % % Basophils % % Neutrophils # (1.3-7.7) k/uL Lymphocytes # (1.0-4.8) k/uL Monocytes # (0-1.0) k/uL Eosinophils # (0-0.7) k/uL Basophils # (0-0.2) k/uL Hypochromasia Poikilocytosis Anisocytosis Microcytosis PT 19.3 H (9.0-12.0) sec INR 2.1 H (<1.2) APTT (22.0-30.0) sec Sodium (137-145) mmol/L Potassium (3.5-5.1) mmol/L Chloride (98-107) mmol/L Carbon Dioxide (22-30) mmol/L Anion Gap mmol/L BUN (9-20) mg/dL Creatinine (0.66-1.25) mg/dL Est GFR (CKD-EPI)AfAm (>60 ml/min/1.73 sqM) Est GFR (CKD-EPI)NonAf (>60 ml/min/1.73 sqM) Glucose (74-99) mg/dL Calcium (8.4-10.2) mg/dL Magnesium (1.6-2.3) mg/dL Total Bilirubin (0.2-1.3) mg/dL AST (17-59) U/L ALT (21-72) U/L Alkaline Phosphatase (38-126) U/L Total Creatine Kinase (55-170) U/L CK-MB (CK-2) (0.0-2.4) ng/mL CK-MB (CK-2) Rel Index Troponin I (0.000-0.034) ng/mL Total Protein (6.3-8.2) g/dL Albumin (3.5-5.0) g/dL Lipase (23-300) U/L Stool Occult Blood (Negative) Blood Type Blood Type Recheck Antibody Screen Crossmatch Spec Expiration Date Disposition Clinical Impression: GI bleed, Symptomatic anemia Disposition: HOME SELF-CARE Condition: Stable Is patient prescribed a controlled substance at d/c from ED?: No Referrals: Laly Saucedo PAC [REFERRING] - 1-2 days Decision to Admit Reason: Admit from EC Decision Date: 11/12/17 Decision Time: 00:58
[2017-11-11 23:13] LABS: Anisocytosis Moderate; Basophils % (A) 0 %; Eosinophils # (A) 0.1 k/uL (0-0.7); Eosinophils % (A) 1 %; Hypochromasia Marked; Lymphocytes # (A) 0.6 k/uL (1.0-4.8); Lymphocytes % (A) 12 %; MCH 23.3 pg (25.0-35.0); MCHC 29.4 g/dL (31.0-37.0); MCV 79.4 fL (80.0-100.0); Mean Platelet Volume 7.4; Microcytosis Moderate; Monocytes # (A) 0.3 k/uL (0-1.0); Monocytes % (A) 6 %; Neutrophils % (A) 78 %; Platelet Count 202 k/uL (150-450); Poikilocytosis Marked; RBC 2.65 m/uL (4.30-5.90); RDW 20.7 % (11.5-15.5); WBC 5.1 k/uL (3.8-10.6)
[2017-11-11 23:23] LABS: HGB 6.2 gm/dL (13.0-17.5)
[2017-11-11 23:29] LABS: Calcium 8.7 mg/dL (8.4-10.2); Magnesium 2.4 mg/dL (1.6-2.3); Potassium 4.2 mmol/L (3.5-5.1); Total Bilirubin 0.6 mg/dL (0.2-1.3); Total Protein 6.2 g/dL (6.3-8.2)
[2017-11-11 23:44] LABS: Creatine Kinase 37 U/L (55-170)
[2017-11-11 23:56] LABS: Creatine Kinase MB 0.9 ng/mL (0.0-2.4); Troponin I <0.012 ng/mL (0.000-0.034)
[2017-11-12 00:38] LABS: INR 2.1 (<1.2); Prothrombin Time 19.3 sec (9.0-12.0)
[2017-11-12] MEDS ORDERED: NALOXONE 0.4 MG/ML 1 ML VIAL IV PRN (00:59)
[2017-11-12 02:06] LABS: Glucose,Whole Blood 114 mg/dL (75-99)
[2017-11-12 02:11] VITALS: BMI 30.7
[2017-11-12] MEDS: SODIUM CHLORIDE 0.9% 1,000 ML IV SCH ×2 (03:00→20:00)
[2017-11-12 06:36] LABS: Anisocytosis Moderate; Basophils % (A) 0 %; Eosinophils # (A) 0.1 k/uL (0-0.7); Eosinophils % (A) 2 %; HCT 21.1 % (39.0-53.0); Hypochromasia Marked; Lymphocytes # (A) 0.6 k/uL (1.0-4.8); Lymphocytes % (A) 14 %; MCH 23.8 pg (25.0-35.0); MCV 81.9 fL (80.0-100.0); Mean Platelet Volume 8.9; Microcytosis Slight; Monocytes # (A) 0.3 k/uL (0-1.0); Monocytes % (A) 8 %; Neutrophils % (A) 72 %; Platelet Count 145 k/uL (150-450); Poikilocytosis Marked; RBC 2.57 m/uL (4.30-5.90); RDW 20.2 % (11.5-15.5); WBC 4.1 k/uL (3.8-10.6)
[2017-11-12 06:53] LABS: Albumin 3.3 g/dL (3.5-5.0); Calcium 8.2 mg/dL (8.4-10.2); Potassium 3.8 mmol/L (3.5-5.1); Total Bilirubin 0.8 mg/dL (0.2-1.3); Total Protein 5.3 g/dL (6.3-8.2)
[2017-11-12 07:03] LABS: HGB 6.1 gm/dL (13.0-17.5)
[2017-11-12] MEDS: METOPROLOL TARTRATE 50 MG TAB PO SCH ×2 (08:13→20:00)
[2017-11-12] MEDS ORDERED: AMIODARONE 200 MG TAB PO SCH (09:00)
[2017-11-12] MEDS ORDERED: PANTOPRAZOLE 40 MG/10 ML VIAL IVP SCH (09:00)
[2017-11-12] MEDS: LISINOPRIL 5 MG TAB PO SCH (09:55)
--- NOTE | 2017-11-12 10:22 | P.CONS ---
History of Present Illness - Reason for Consult Consult date: 11/12/17 Anemia GI bleed Requesting physician: Anupama Jones - History of Present Illness 77-year-old gentleman with a history of valvular heart disease atrial fibrillation status post bioprosthetic aortic valve replacement. Ago maintained on warfarin presents with history of melena over the last month. Patient resides in [place] during the winter months and reports black colored bowel movements for 1 month but cleared up about 2 weeks ago. He has been more fatigued short of breath with an admission hemoglobin of 6.2. MCV 79. Platelet 202. INR 2.1. BUN 34. Creatinine 1.4. Upon review of medical records hemoglobin was 13.9 several months ago. Denies abdominal pain. No history of peptic ulcer disease. Last colonoscopy several years ago. No recent EGD. He decreased his Coumadin by half a tablet last month after witnessing the black colored bowel movements and within a week his bowel movements turned brown. Denies hematemesis or hematochezia. No alcohol. No NSAIDs. He is receiving a unit of blood this morning with 2 units transfused for a total of 3 units. Review of Systems Constitutional: Denies fever, chills, sweats, weight gain, or loss. Increased fatigue weakness. HEENT: Negative for migraines, blurred vision or loss, earaches, drainage, tinnitus, oral mucosal lesions, dysphagia, or odynophagia. Cardiac: History of atrial fibrillation and aortic valve replacement. Negative for chest pain, arrhythmias, or palpitation. Respiratory: New-onset shortness of breath over the last few weeks denies, hemoptysis, cough, or sputum production. Gastrointestinal: See HPI for pertinent findings. Genitourinary: Negative for hematuria, urgency, frequency, polyuria, dysuria, or penile discharge. Musculoskeletal: Negative for muscle aches, swelling, arthritis, and arthralgias. Neurologic: Negative for stroke or TIA. Endocrine: Negative for thyroid problems. Skin: Negative for rash or itching. Psychiatric: Negative history for depression and anxiety Past Medical History Past Medical History: Atrial Fibrillation, Hyperlipidemia, Hypertension Additional Past Medical History / Comment(s): . History of Any Multi-Drug Resistant Organisms: None Reported Past Surgical History: Cardiac Valve Replacement, Heart Catheterization Additional Past Surgical History / Comment(s): colonoscopy, AVR WITH ANEURYSMORRHAPHY 03/08/[address] ARVIZU. Past Anesthesia/Blood Transfusion Reactions: No Reported Reaction Past Psychological History: No Psychological Hx Reported Smoking Status: Former smoker Past Alcohol Use History: Occasional Past Drug Use History: None Reported - Past Family History Mother Family Medical History: Cancer Medications and Allergies Home Medications Medication Instructions Recorded Confirmed Type Aspirin 81 mg PO DAILY 01/18/14 11/12/17 History Amiodarone HCl [Pacerone] 200 mg PO DAILY 02/20/17 11/12/17 History Atorvastatin [Lipitor] 20 mg PO HS 02/20/17 11/12/17 History Metoprolol Tartrate [Lopressor] 50 mg PO BID 02/20/17 11/12/17 History Vit C/E/Zn/Coppr/Lutein/Zeaxan 1 cap PO DAILY 02/20/17 11/12/17 History [Preservision Areds 2 Softgel] Furosemide [Lasix] 40 mg PO BID@0900,1600 #60 tab 02/23/17 11/12/17 Rx Lisinopril [Zestril] 5 mg PO DAILY #30 tablet 02/23/17 11/12/17 Rx Warfarin Sodium [Warfarin Sodium] 7.5 mg PO HS 11/12/17 11/12/17 History Allergies Allergy/AdvReac Type Severity Reaction Status Date / Time No Known Allergies Allergy Verified 11/11/17 22:21 Physical Exam Vitals: Vital Signs Temp Pulse Pulse Resp BP BP Pulse Ox 11/12/17 09:00 98.2 F 70 23 114/66 96 11/12/17 08:38 98.1 F 62 18 141/81 95 11/12/17 08:28 98.0 F 66 24 137/82 96 11/12/17 08:00 98 F 64 18 143/81 94 L 11/12/17 06:00 59 L 15 140/89 98 11/12/17 05:30 68 41 H 152/77 98 11/12/17 05:00 67 24 144/80 94 L 11/12/17 04:30 59 L 20 145/77 91 L 11/12/17 04:00 98.5 F 65 23 133/75 93 L 11/12/17 03:30 67 25 H 154/77 92 L 11/12/17 03:00 62 26 H 128/74 93 L 11/12/17 02:57 98.4 F 65 16 128/74 11/12/17 02:30 68 26 H 122/75 92 L 11/12/17 02:20 67 19 95 11/12/17 02:10 67 14 122/75 95 11/12/17 02:00 98.4 F 65 18 134/81 97 11/12/17 01:55 16 11/12/17 01:50 68 11/12/17 01:16 97.3 F L 68 16 118/68 11/12/17 00:51 97.5 F L 65 16 118/67 11/12/17 00:46 97.3 F L 67 16 111/67 96 11/12/17 00:36 97.9 F 69 16 117/68 96 11/11/17 23:44 69 16 114/62 96 11/11/17 22:19 99.8 F H 77 18 131/67 99 Intake and Output 11/11/17 11/12/17 11/12/17 22:59 06:59 14:59 Intake Total 670 100 Output Total 150 Balance 520 100 Intake: IV 360 100 PRBC 310 Sodium Chloride 0.9% 1, 50 100 000 ml @ 50 mls/hr IV . Q20H [facility] Rx#:[id number] Blood Product 310 0 Rc As-1 Unit 310 [id number] Rc As-1 Unit 0 [id number] Output: Urine 150 Other: Voiding Method Urinal Urinal Weight 108.862 kg 94.8 kg General appearance: The patient is alert, oriented, in no acute distress. HET: Head is normocephalic and atraumatic. Pupils are equal and reactive. Oropharynx is clear without lesions. Neck: Supple without lymphadenopathy. Trachea midline. Heart: S1 S2. Regular rate and rhythm. Lungs: No crackles or wheezes are heard. Abdomen: Soft, nontender, nondistended with bowel sounds. No peritoneal signs. No palpable organomegaly or masses. Extremities: Normal skin color and turgor. No cyanosis, rash, ulceration, clubbing, or edema. Radial and pedal pulses are 2/4 bilaterally. Neurological: No focal deficits. Strength and sensation are grossly intact. Results CBC & Chem 7: 11/12/17 06:19 11/12/17 06:19 Labs: Abnormal Lab Results - Last 24 Hours (Table) 11/11/17 11/11/17 11/11/17 Range/Units 21:42 21:42 21:42 RBC 2.65 L (4.30-5.90) m/uL Hgb 6.2 L* (13.0-17.5) gm/dL Hct 21.0 L (39.0-53.0) % MCV 79.4 L (80.0-100.0) fL MCH 23.3 L (25.0-35.0) pg MCHC 29.4 L (31.0-37.0) g/dL RDW 20.7 H (11.5-15.5) % Plt Count (150-450) k/uL Lymphocytes # 0.6 L (1.0-4.8) k/uL PT (9.0-12.0) sec INR (<1.2) BUN 34 H (9-20) mg/dL Creatinine 1.40 H (0.66-1.25) mg/dL Glucose 114 H (74-99) mg/dL POC Glucose (mg/dL) (75-99) mg/dL Calcium (8.4-10.2) mg/dL Magnesium 2.4 H (1.6-2.3) mg/dL AST (17-59) U/L Total Creatine Kinase 37 L (55-170) U/L Total Protein 6.2 L (6.3-8.2) g/dL Albumin (3.5-5.0) g/dL Crossmatch 11/11/17 11/11/17 11/12/17 Range/Units 21:42 21:42 02:03 RBC (4.30-5.90) m/uL Hgb (13.0-17.5) gm/dL Hct (39.0-53.0) % MCV (80.0-100.0) fL MCH (25.0-35.0) pg MCHC (31.0-37.0) g/dL RDW (11.5-15.5) % Plt Count (150-450) k/uL Lymphocytes # (1.0-4.8) k/uL PT 19.3 H (9.0-12.0) sec INR 2.1 H (<1.2) BUN (9-20) mg/dL Creatinine (0.66-1.25) mg/dL Glucose (74-99) mg/dL POC Glucose (mg/dL) 114 H (75-99) mg/dL Calcium (8.4-10.2) mg/dL Magnesium (1.6-2.3) mg/dL AST (17-59) U/L Total Creatine Kinase (55-170) U/L Total Protein (6.3-8.2) g/dL Albumin (3.5-5.0) g/dL Crossmatch See Detail 11/12/17 11/12/17 Range/Units 06:19 06:19 RBC 2.57 L (4.30-5.90) m/uL Hgb 6.1 L* (13.0-17.5) gm/dL Hct 21.1 L (39.0-53.0) % MCV (80.0-100.0) fL MCH 23.8 L (25.0-35.0) pg MCHC 29.0 L (31.0-37.0) g/dL RDW 20.2 H (11.5-15.5) % Plt Count 145 L (150-450) k/uL Lymphocytes # 0.6 L (1.0-4.8) k/uL PT (9.0-12.0) sec INR (<1.2) BUN 31 H (9-20) mg/dL Creatinine (0.66-1.25) mg/dL Glucose (74-99) mg/dL POC Glucose (mg/dL) (75-99) mg/dL Calcium 8.2 L (8.4-10.2) mg/dL Magnesium (1.6-2.3) mg/dL AST 12 L (17-59) U/L Total Creatine Kinase (55-170) U/L Total Protein 5.3 L (6.3-8.2) g/dL Albumin 3.3 L (3.5-5.0) g/dL Crossmatch Assessment and Plan (1) GI bleed Narrative/Plan: 77-year-old male presents with a one-month history of black colored bowel movements with symptomatic acute blood loss anemia with underlying history of aortic valve replacement maintained on Coumadin. Possible peptic ulcer disease possible colonic source. Last colonoscopy several years ago. Current Visit: Yes Status: Acute Code(s): K92.2 - GASTROINTESTINAL HEMORRHAGE, UNSPECIFIED SNOMED Code(s): 72003695 (2) H/O aortic valve replacement Current Visit: Yes Status: Acute Code(s): Z95.2 - PRESENCE OF PROSTHETIC HEART VALVE SNOMED Code(s): 7625886716237 (3) Warfarin-induced coagulopathy Current Visit: Yes Status: Acute Code(s): D68.32 - HEMORRHAGIC DISORD D/T EXTRINSIC CIRCULATING ANTICOAGULANTS; T45.515A - ADVERSE EFFECT OF ANTICOAGULANTS, INITIAL ENCOUNTER SNOMED Code(s): 06262905 (4) Acute blood loss anemia Current Visit: Yes Status: Acute Code(s): D62 - ACUTE POSTHEMORRHAGIC ANEMIA SNOMED Code(s): 812623047 (5) Symptomatic anemia Current Visit: Yes Status: Acute Code(s): D64.9 - ANEMIA, UNSPECIFIED SNOMED Code(s): 204286605 Plan: 1. Case was discussed with medical service will proceed with an EGD colonoscopy considering his been several years since patient has last colonoscopy and will require warfarin for maintenance of his AVR. Endoscopic exams scheduled for tomorrow. Continue clear liquid diet today. CBC monitoring. Nothing by mouth after midnight. 2. Protonix 40 mg twice daily. 3. PT/INR today after blood transfusion is completed and in a.m. The transportation maintenance operator has discussed the risks, benefits and alternative therapies for the above-mentioned procedure and for both sedation/analgesia as well as necessary blood product administration, if indicated, as they pertain to this patient. The patient has indicated understanding and acceptance of the risks and procedures discussed. Thank you for this kind referral and the opportunity to participate in the care of your patient. This consultation was discussed with Dr. Rahman. The impression and plan of care have been directed as dictated.
[2017-11-12] MEDS ORDERED: BISACODYL 5 MG TABLET.DR PO STA (11:49)
[2017-11-12] MEDS ORDERED: MAGNESIUM CITRATE 296 ML BOTTLE PO ONE (11:49)
--- NOTE | 2017-11-12 12:26 | P.CNPUL ---
History of Present Illness Consult date: 11/12/17 Requesting physician: Anupama Jones Reason for consult: other (GI bleeding profound anemia admitted to the ICU) Chief complaint: Black stools and low hemoglobin History of present illness: This is a 77-year-old white male with history of multiple medical problems including chronic atrial fibrillation, valvular heart disease, history of bioprosthetic aortic valve replacement, patient is maintained on Coumadin. Patient presented to his physician recently, and routine blood work was done. Then the patient was notified back by his physician that he is hemoglobin was very low. And advised to go to the ER. In the ER, repeat hemoglobin was noted to be 6.2. Patient was complaining of chronic weakness, fatigue, and some shortness of breath. His INR was therapeutic at 2.1. And the patient denies any history of alcohol abuse, no history of taking any nonsteroidal anti- inflammatory drugs. Patient was admitted to the ICU, and I was asked to see him on consultation. According to the patient, for the last 1 month he has been noticing black stools and the first time was about a month ago when he was in [place]. He cut down on his Coumadin dose and then his black stools became better. However intermittently over the last month the patient is noticing intermittent episodes of melena. Patient denies any previous history of GI bleeding, denies any history of peptic ulcer disease, no history of liver disease, no history of recent EGD, his last colonoscopy was over 8 years ago. Patient has been transfused 2 units of packed RBCs so far., and he is to receive his third unit soon. Review of Systems Constitutional: No fever, no chills, no weight loss.. HEENT: No headache, no tinnitus, no ear aches, no symptoms of sinuses pain. Gastrointestinal, refer to history of the present illness Pulmonary: No cough no wheezing no shortness of breath Cardiac: No chest pain, no diaphoresis. No palpitations. Genitourinar no dysuria frequency urgency, no hematuria. Musculoskeletal: no arthralgia, no myalgia. eurologic: Negative for stroke or TIA. EndNo heat or cold intolerance, no polyuria, no polyphagia. . Skin:no rashes, no pruritus. iatrNo active symptoms to suggest active depression or anxiety. Past Medical History Past Medical History: Atrial Fibrillation, Hyperlipidemia, Hypertension Additional Past Medical History / Comment(s): . History of Any Multi-Drug Resistant Organisms: None Reported Past Surgical History: Cardiac Valve Replacement, Heart Catheterization Additional Past Surgical History / Comment(s): colonoscopy, AVR WITH ANEURYSMORRHAPHY 03/08/[address] ARVIZU. Past Anesthesia/Blood Transfusion Reactions: No Reported Reaction Past Psychological History: No Psychological Hx Reported Smoking Status: Former smoker Past Alcohol Use History: Occasional Past Drug Use History: None Reported - Past Family History Mother Family Medical History: Cancer Medications and Allergies Home Medications Medication Instructions Recorded Confirmed Type Aspirin 81 mg PO DAILY 01/18/14 11/12/17 History Amiodarone HCl [Pacerone] 200 mg PO DAILY 02/20/17 11/12/17 History Atorvastatin [Lipitor] 20 mg PO HS 02/20/17 11/12/17 History Metoprolol Tartrate [Lopressor] 50 mg PO BID 02/20/17 11/12/17 History Vit C/E/Zn/Coppr/Lutein/Zeaxan 1 cap PO DAILY 02/20/17 11/12/17 History [Preservision Areds 2 Softgel] Furosemide [Lasix] 40 mg PO BID@0900,1600 #60 tab 02/23/17 11/12/17 Rx Lisinopril [Zestril] 5 mg PO DAILY #30 tablet 02/23/17 11/12/17 Rx Warfarin Sodium [Warfarin Sodium] 7.5 mg PO HS 11/12/17 11/12/17 History Allergies Allergy/AdvReac Type Severity Reaction Status Date / Time No Known Allergies Allergy Verified 11/11/17 22:21 Physical Exam Vitals: Vital Signs Temp Pulse Pulse Pulse Resp BP BP 11/12/17 11:14 98.3 F 57 L 137/87 11/12/17 11:00 60 26 H 140/86 11/12/17 10:53 98.3 F 60 18 140/86 11/12/17 10:43 98.4 F 60 18 135/84 11/12/17 10:31 98.4 F 62 18 135/84 11/12/17 10:00 60 21 119/77 11/12/17 09:00 98.2 F 70 23 114/66 11/12/17 08:38 98.1 F 62 18 141/81 11/12/17 08:28 98.0 F 66 24 137/82 11/12/17 08:00 98 F 64 18 143/81 11/12/17 06:00 59 L 15 140/89 11/12/17 05:30 68 41 H 152/77 11/12/17 05:00 67 24 144/80 11/12/17 04:30 59 L 20 145/77 11/12/17 04:00 98.5 F 65 23 133/75 11/12/17 03:30 67 25 H 154/77 11/12/17 03:00 62 26 H 128/74 11/12/17 02:57 98.4 F 65 16 128/74 11/12/17 02:30 68 26 H 122/75 11/12/17 02:20 67 19 11/12/17 02:10 67 14 122/75 11/12/17 02:00 98.4 F 65 18 134/81 11/12/17 01:55 16 11/12/17 01:50 68 11/12/17 01:16 97.3 F L 68 16 118/68 11/12/17 00:51 97.5 F L 65 16 118/67 11/12/17 00:46 97.3 F L 67 16 111/67 11/12/17 00:36 97.9 F 69 16 117/68 11/11/17 23:44 69 16 114/62 11/11/17 22:19 99.8 F H 77 18 131/67 Pulse Ox 11/12/17 11:14 97 11/12/17 11:00 98 11/12/17 10:53 98 11/12/17 10:43 98 11/12/17 10:31 98 11/12/17 10:00 96 11/12/17 09:00 96 11/12/17 08:38 95 11/12/17 08:28 96 11/12/17 08:00 94 L 11/12/17 06:00 98 11/12/17 05:30 98 11/12/17 05:00 94 L 11/12/17 04:30 91 L 11/12/17 04:00 93 L 11/12/17 03:30 92 L 11/12/17 03:00 93 L 11/12/17 02:57 11/12/17 02:30 92 L 11/12/17 02:20 95 11/12/17 02:10 95 11/12/17 02:00 97 11/12/17 01:55 11/12/17 01:50 11/12/17 01:16 11/12/17 00:51 11/12/17 00:46 96 11/12/17 00:36 96 11/11/17 23:44 96 11/11/17 22:19 99 Intake and Output 11/11/17 11/12/17 11/12/17 22:59 06:59 14:59 Intake Total 670 530 Output Total 150 Balance 520 530 Intake: IV 360 100 PRBC 310 Sodium Chloride 0.9% 1, 50 100 000 ml @ 50 mls/hr IV . Q20H [facility] Rx#:[id number] Oral 120 Blood Product 310 310 Rc As-1 Unit 310 [id number] Rc As-1 Unit 0 [id number] Rc As-1 Unit 310 [id number] Output: Urine 150 Other: Voiding Method Urinal Urinal # Voids 1 # Bowel Movements 1 Weight 108.862 kg 94.8 kg Physical Exam: Revealed a 77-year-old white male in no distress Head: Atraumatic, normocephalic Eyes: PERRLA, EOMI, no icterus. HEENT:[Neck is supple.] [No neck masses.] [No thyromegaly.] [No JVD.] Moist mucous membranes Chest: [Clear throughout, no crackles, no rhonchi, no wheezes.] Cardiac Exam: [Normal S1 and S2, no S3 gallop, 2/6 systolic murmur thought the precordium.] Abdomen: [Soft, nontender, no megaly, no rebound, no guarding, normal bowel sounds.] Extremities: [No clubbing, no edema, no cyanosis.] Good skin turgor. Neurological Exam: [No focal neurologic deficit.] Lymphatics: No lymphadenopathy Psychiatric: Normal mood affect and mental status examination. Results - Laboratory Findings CBC and BMP: 11/12/17 06:19 11/12/17 06:19 PT/INR, D-dimer PT 19.3 sec (9.0-12.0) H 11/11/17 21:42 INR 2.1 (<1.2) H 11/11/17 21:42 Abnormal lab findings: Abnormal Labs 11/11/17 11/11/17 11/11/17 21:42 21:42 21:42 RBC 2.65 L Hgb 6.2 L* Hct 21.0 L MCV 79.4 L MCH 23.3 L MCHC 29.4 L RDW 20.7 H Plt Count Lymphocytes # 0.6 L PT INR BUN 34 H Creatinine 1.40 H Glucose 114 H POC Glucose (mg/dL) Calcium Magnesium 2.4 H AST Total Creatine Kinase 37 L Total Protein 6.2 L Albumin Crossmatch 11/11/17 11/11/17 11/12/17 21:42 21:42 02:03 RBC Hgb Hct MCV MCH MCHC RDW Plt Count Lymphocytes # PT 19.3 H INR 2.1 H BUN Creatinine Glucose POC Glucose (mg/dL) 114 H Calcium Magnesium AST Total Creatine Kinase Total Protein Albumin Crossmatch See Detail 11/12/17 11/12/17 06:19 06:19 RBC 2.57 L Hgb 6.1 L* Hct 21.1 L MCV MCH 23.8 L MCHC 29.0 L RDW 20.2 H Plt Count 145 L Lymphocytes # 0.6 L PT INR BUN 31 H Creatinine Glucose POC Glucose (mg/dL) Calcium 8.2 L Magnesium AST 12 L Total Creatine Kinase Total Protein 5.3 L Albumin 3.3 L Crossmatch Assessment and Plan Assessment: Impression: 1 acute severe anemia, most likely secondary to upper GI blood losses. However the possibility of lower GI bleeding is not entirely ruled out. Patient will require diagnostic studies by gastroenterology, and I believe he is scheduled for EGD today. Patient has been on Coumadin which is likely a contributing factor to his bleeding, patient is known to have history of aortic valve replacement, bioprosthetic valve, and history of paroxysmal atrial fibrillation. 2 warfarin induced coagulopathy 3 history of multiple comorbidities including hypertension, paroxysmal atrial fibrillation, hyperlipidemia, previous aortic valve replacement using a bioprosthetic valve. Recommendation: I fully agree with the present treatment plan and the diagnostic plan by gastroenterology. Continue Protonix, continue to monitor in the ICU, transfuse and keep hemoglobin above 7.0. We'll continue to follow. Time with Patient: Greater than 30
--- NOTE | 2017-11-12 12:44 | XR ---
EXAMINATION TYPE: XR chest 1V portable DATE OF EXAM: 11/12/2017 CLINICAL HISTORY: CHF per order. History of atrial fibrillation and valve replacement 3-4 years ago. TECHNIQUE: Single AP portable upright view of the chest is obtained. COMPARISON: Chest x-ray from February 22, 2017. CTA thoracic and abdominal aorta February 20, 2017 FINDINGS: Overlying sternal wires are seen. There is background chronic emphysematous change with sc attered areas of parenchymal fibrosis. There is no suspicious focal airspace opacity, pleural effusio n, or pneumothorax identified bilaterally. Surgical change at level of aortic valve is not well visua lized. There is cardiomegaly with ectatic thoracic aorta redemonstrated. Osseous structures are intac t. IMPRESSION: Chronic emphysematous and parenchymal changes as well as cardiomegaly without suspicious acute pulmonary process.
[2017-11-12 12:51] LABS: Prothrombin Time 18.4 sec (9.0-12.0)
[2017-11-12 13:09] LABS: Calcium 8.4 mg/dL (8.4-10.2); Potassium 4.4 mmol/L (3.5-5.1)
--- NOTE | 2017-11-12 13:14 | HP ---
HISTORY AND PHYSICAL DATE OF SERVICE: 11/12/2017 CHIEF COMPLAINTS: GI bleed and low hemoglobin. HISTORY OF PRESENT ILLNESS: This is a 77-year-old gentleman with a past medical history of multiple medical problems including atrial ablation, hypertension, hyperlipidemia, history of cardiac valve replacement, being followed by the [facility] and Dr. Timo Vega in the outpatient setting was in [place] for the previous few weeks. The patient noted some black-colored stools and patient came back to [place] and the patient was seen for further routine evaluation. The patient had some labs done at the [facility]. Hemoglobin was found to be 5, and the patient was directed to [facility] and admitted to ICU at this time. Hemoglobin is 6.2. Even at 1 unit of transfusion hemoglobin is 6.1, two more units have been planned. EGD and colonoscopy are also planned. There is no history of any fever or rigors. No history of headache, loss of consciousness, or seizures. At this time, patient has shortness of breath and tiredness and weakness. PAST MEDICAL HISTORY: History of atrial ablation, hypertension, hyperlipidemia, history of cardiac valve replacement. MEDICATIONS ARE: 1. Coumadin 7 5 mg q.h.s.. 2. Vitamin C/E/Zn/Copper 1 capsule p.o. daily. 3. Lopressor 50 mg p.o. b.i.d. 4. Zestril 5 mg p.o. daily. 5. Lasix 40 mg p.o. b.i.d. 6. Lipitor 10 mg q.h.s. 7. Aspirin 81 mg p.o. daily. 8. Pacerone 200 mg p.o. daily. ALLERGIES: None. FAMILY HISTORY: History of cancer in the family. SOCIAL HISTORY: Previous history of smoking. Occasional alcohol intake. REVIEW OF SYSTEMS: ENT: No diminished vision. CARDIOVASCULAR: As mentioned earlier. RESPIRATORY: As mentioned earlier. GI: As mentioned earlier. : As mentioned earlier. NERVOUS SYSTEM: Generalized weakness. ALLERGY/IMMUNOLOGY: As mentioned earlier. MUSCULOSKELETAL: As mentioned earlier. RHEUMATOLOGY: As mentioned earlier. ENDOCRINE: No history of diabetes or hypothyroidism. CONSTITUTIONAL: As mentioned earlier. DERMATOLOGY: Negative. PSYCHIATRY: As mentioned earlier. PHYSICAL EXAM: Patient is alert and oriented x3. Pulse is 60, blood pressure 140/80, respiration 18, temperature 98.2, pulse ox 98% on 2 L. HEENT: Conjunctivae are pale. Oral mucosa moist. Neck is obese. CARDIOVASCULAR: S1, S2, ejection systolic murmur present, no S3, S4. RESPIRATORY: Breath sounds diminished at the bases, a few scattered rhonchi and crackles. ABDOMEN: Soft, obese, nontender. LEGS: No edema, no swelling. NERVOUS SYSTEM: Higher functions as mentioned earlier. Moves all four limbs. No focal motor deficits. LYMPHATICS: No lymph node enlargement in neck or axillae. SKIN: No ulcer, rash or bleeding. LAB STUDIES: WBC is 4.1, hemoglobin 6.1, sodium 143, potassium 3.8, albumin is 3.3. ASSESSMENT: 1. Anemia, acute blood loss anemia with acute gastrointestinal blood loss. 2. Hypertension. 3. Atrial fibrillation. 4. Hyperlipidemia. 5. History of cardiac valve replacement. 6. History of aortic valve replacement with [QAMARKER]. 7. FULL CODE. RECOMMENDATION: In this 77-year-old gentleman who presented with multiple complex medical issues, will monitor the patient closely. Continue with the current management. Will initiate GI consultation, 2 more units of transfusion with Lasix. Monitor creatinine closely. I would also recommend Cardiology and Gastroenterology evaluations. Home medications will be continued. The prognosis guarded because of multiple complex medical issues. Will monitor PT, INR closely. See orders for details. A copy of this report to the [facility] and Dr. Vega. Discussed with the patient who understands and consents. MMODL / IJN: [id number] /
[2017-11-12 14:01] LABS: Anisocytosis Slight; Basophils % (A) 0 %; Eosinophils # (A) 0.1 k/uL (0-0.7); Eosinophils % (A) 2 %; HCT 27.7 % (39.0-53.0); Hypochromasia Marked; Lymphocytes # (A) 0.6 k/uL (1.0-4.8); Lymphocytes % (A) 11 %; MCH 24.5 pg (25.0-35.0); MCHC 29.6 g/dL (31.0-37.0); MCV 82.8 fL (80.0-100.0); Microcytosis Slight; Monocytes # (A) 0.4 k/uL (0-1.0); Monocytes % (A) 7 %; Neutrophils # (A) 4.2 k/uL (1.3-7.7); Neutrophils % (A) 77 %; Platelet Count 167 k/uL (150-450); Poikilocytosis Marked; RBC 3.34 m/uL (4.30-5.90); RDW 19.2 % (11.5-15.5); WBC 5.5 k/uL (3.8-10.6)
[2017-11-12 14:06] LABS: HGB 8.2 gm/dL (13.0-17.5)
[2017-11-12 14:59] LABS: Anisocytosis Slight; Basophils % (A) 0 %; Eosinophils # (A) 0.1 k/uL (0-0.7); Eosinophils % (A) 1 %; HCT 28.2 % (39.0-53.0); HGB 8.4 gm/dL (13.0-17.5); Hypochromasia Marked; Lymphocytes # (A) 0.5 k/uL (1.0-4.8); Lymphocytes % (A) 9 %; MCH 24.8 pg (25.0-35.0); MCHC 29.7 g/dL (31.0-37.0); MCV 83.5 fL (80.0-100.0); Mean Platelet Volume 8.7; Microcytosis Slight; Monocytes # (A) 0.4 k/uL (0-1.0); Monocytes % (A) 7 %; Neutrophils # (A) 4.3 k/uL (1.3-7.7); Neutrophils % (A) 79 %; Platelet Count 173 k/uL (150-450); Poikilocytosis Marked; RBC 3.37 m/uL (4.30-5.90); RDW 18.4 % (11.5-15.5); WBC 5.4 k/uL (3.8-10.6)
[2017-11-12 15:44] LABS: Appearance,Urine Clear (Clear); Bilirubin,Urine Negative (Negative); Blood,Urine Negative (Negative); Color,Urine Yellow; Glucose,Urine (UA) Negative (Negative); Ketones,Urine Negative (Negative); Leukocyte Esterase,Urine Small (Negative); Nitrite,Urine Negative (Negative); PH, Urine 6.5 (5.0-8.0); Protein,Urine Trace (Negative); RBC,Urine 3 /hpf (0-5); Specific Gravity,Urine 1.023 (1.001-1.035); Urobilinogen,Urine <2.0 mg/dL (<2.0); WBC,Urine 2 /hpf (0-5)
[2017-11-12] MEDS ORDERED: PEG 3350-NA SULF,BICARB,CL/KCL 4,000 ML BOTTLE PO ONE ×2 (16:00)
[2017-11-12] MEDS ORDERED: FUROSEMIDE 40 MG TAB PO SCH (16:00)
--- NOTE | 2017-11-12 16:35 | CONS ---
CONSULTATION Mr. Rodriguez is a 77-year-old male, status post aortic valve replacement, who presented with dark stool. He has been followed by Dr. Trinity Falk and underwent aortic valve replacement for severe aortic regurgitation in February of 2014. A year ago while in [place] he underwent cardioversion because of atrial fibrillation. He has been anticoagulated since that time and has been on amiodarone 200 mg daily. At the time of his surgery, he received a size 27 bovine tissue valve with repair of the ascending aorta. His left ventricular systolic function has been stable. His level of activity is stable. He has mild dyspnea on exertion, but much worse recently with progressive fatigue, lack of energy. He denies any significant dizziness or palpitation. He had no recurrent atrial fibrillation. He has no clear PND or orthopnea. No peripheral edema. His coronary risk factors are positive for hypertension and hyperlipidemia. He has been a nonsmoker for over 30 years. Nondiabetic. He has noted the dark black stool for the last 3 to 4 weeks. HOME MEDICATION: 1. Pacerone 200 mg daily. 2. Aspirin. 3. Lipitor 20 mg daily. 4. Lasix 40 mg twice a day. 5. Zestril 5 mg daily. 6. Metoprolol tartrate 50 mg twice a day. 7. Coumadin. REVIEW OF SYSTEMS: RESPIRATORY SYSTEM: He has dyspnea on exertion. No recent wheezing or cough. No history of obstructive lung disease. GI SYSTEM: He had the recent GI bleeding with dark stool but not in the past. SYSTEM: No dysuria or hematuria. NERVOUS SYSTEM: No history of stroke or seizure. PAST SURGICAL HISTORY: Aortic valve replacement and repair of the ascending aorta. PHYSICAL EXAMINATION: He is a 77-year-old male, alert, oriented, in no apparent distress. Blood pressure 129/85 with a heart rate in the 60s. HEAD: Normocephalic. EYES: Sclerae anicteric. NECK: Good carotid upstroke. No bruit. No jugular venous distention. LUNGS: Clear to auscultation. HEART: Regular rate and rhythm. S1, S2. No S3, with systolic murmur heard at the base, ejection type. No diastolic murmur. No rub. ABDOMEN: Soft, nontender. Positive bowel sounds. No organomegaly. EXTREMITIES: No edema. Intact distal pulses. LAB DATA: On presentation, his hemoglobin was 6.2. It is 8.4 today after transfusion. BUN creatinine are 29 and 1.1. Potassium 4.4. EKG revealed sinus mechanism with first-degree AV block and nonspecific ST-T wave changes. Chest x-ray revealed no acute infiltrate. IMPRESSION: 1. Acute gastrointestinal bleeding, worsened by the anticoagulation, antiplatelets. 2. Atrial fibrillation, status post cardioversion, maintaining sinus mechanism. 3. Status post aortic valve replacement and repair of the ascending aorta. 4. Hypertension. 5. Hyperlipidemia. RECOMMENDATION: I agree with holding the anticoagulation at this time. Patient is scheduled to undergo upper and lower endoscopy. I will decrease the dose of his amiodarone and I will obtain echocardiogram with Doppler as well as evaluation of his TSH. Depending on the recommendation from the GI service, we will make a decision regarding re-initiating anticoagulation. One of the possibilities is to use one of the novel anticoagulants. I have discussed those findings with the patient. Thank you for this consult. Will follow with you. ROBERT / IJN: [id number] /
[2017-11-12] MEDS: PANTOPRAZOLE 40 MG/10 ML VIAL IVP SCH (20:00)
[2017-11-12] MEDS: ATORVASTATIN 20 MG TAB PO SCH (20:00)
[2017-11-13 04:16] LABS: Anisocytosis Slight; Basophils % (A) 0 %; Eosinophils # (A) 0.1 k/uL (0-0.7); Eosinophils % (A) 1 %; HCT 26.6 % (39.0-53.0); HGB 7.8 gm/dL (13.0-17.5); Hypochromasia Marked; Lymphocytes # (A) 0.4 k/uL (1.0-4.8); Lymphocytes % (A) 7 %; MCH 24.2 pg (25.0-35.0); MCHC 29.4 g/dL (31.0-37.0); MCV 82.3 fL (80.0-100.0); Mean Platelet Volume 10.2; Microcytosis Slight; Monocytes # (A) 0.4 k/uL (0-1.0); Monocytes % (A) 7 %; Neutrophils # (A) 4.5 k/uL (1.3-7.7); Neutrophils % (A) 82 %; Platelet Count 145 k/uL (150-450); Poikilocytosis Marked; RBC 3.23 m/uL (4.30-5.90); RDW 19.4 % (11.5-15.5); WBC 5.5 k/uL (3.8-10.6)
[2017-11-13 04:23] LABS: INR 2.1 (<1.2); Prothrombin Time 18.9 sec (9.0-12.0)
[2017-11-13 04:26] LABS: ALT 19 U/L (21-72); AST 13 U/L (17-59); Albumin 3.3 g/dL (3.5-5.0); Alkaline Phosphatase 67 U/L (38-126); Anion Gap 10 mmol/L; Blood Urea Nitrogen 23 mg/dL (9-20); Calcium 8.4 mg/dL (8.4-10.2); Carbon Dioxide 28 mmol/L (22-30); Chloride 105 mmol/L (98-107); Glucose 95 mg/dL (74-99); Potassium 4.1 mmol/L (3.5-5.1); Sodium 143 mmol/L (137-145); Total Bilirubin 0.8 mg/dL (0.2-1.3); Total Protein 5.4 g/dL (6.3-8.2)
--- NOTE | 2017-11-13 07:57 | PN ---
PROGRESS NOTE Mr. Rodriguez is a 77-year-old male who presented with severe anemia. He has a history of aortic valve replacement and repair of his ascending aorta. History of atrial fibrillation status post cardioversion a year ago in [place]. He is scheduled to undergo upper and lower endoscopy today. He is feeling well today. His breathing is stable. He is denying any chest pain. No dizziness or palpitation. He continues to be in sinus mechanism with no evidence of atrial fibrillation. He continues to be on amiodarone 100 mg daily, Lipitor 20 mg daily, Lasix 40 mg daily, lisinopril 5 mg daily, metoprolol tartrate 50 mg twice a day. PHYSICAL EXAMINATION: Blood pressure 146/80 with a heart rate in the 60s. LUNGS: Clear. Heart regular rate and rhythm S1, S2. No S3 with systolic ejection murmur at the base. No diastolic murmur. No rub. ABDOMEN: Soft, nontender. EXTREMITIES: No edema. LAB DATA: Revealed hemoglobin of 7.8, INR of 2.1, BUN and creatinine 23 and 0.9, potassium 4.1. TSH 0.87. IMPRESSION: 1. Gastrointestinal bleeding. Scheduled to undergo endoscopy. Etiology unclear. 2. Atrial fibrillation remains in normal sinus rhythm, status post cardioversion 1 year ago. 3. Status post aortic valve replacement and repair of the ascending aorta. RECOMMENDATION: We will continue present therapy. We will await the results of his endoscopy. I will review the results of his echocardiogram and depending on his progress, further recommendation will be made. MMODL / IJN: [id number] /
[2017-11-13] MEDS: METOPROLOL TARTRATE 50 MG TAB PO SCH (08:28)
[2017-11-13] MEDS: FUROSEMIDE 40 MG TAB PO SCH (08:28)
[2017-11-13] MEDS: AMIODARONE 100 MG TAB PO SCH (08:28)
[2017-11-13] MEDS: LISINOPRIL 5 MG TAB PO SCH (08:28)
[2017-11-13] MEDS: PANTOPRAZOLE 40 MG/10 ML VIAL IVP SCH ×2 (08:29→22:21)
--- NOTE | 2017-11-13 10:44 | ECHOF ---
Referral Reason:avr MEASUREMENTS -------- HEIGHT: 175.3 cm WEIGHT: 94.3 kg BP: 131/80 RVIDd: 4.5 cm (< 3.3) IVSd: 1.5 cm (0.6 - 1.1) LVIDd: 5.5 cm (3.9 - 5.3) LVPWd: 1.6 cm (0.6 - 1.1) IVSs: 2.1 cm LVIDs: 4.6 cm LVPWs: 1.7 cm LA Diam: 5.7 cm (2.7 - 3.8) LAESV Index (A-L): 74.02 ml/m Ao Diam: 4.8 cm (2.0 - 3.7) AV Cusp: 2.1 cm (1.5 - 2.6) LA Diam: 4.5 cm (2.7 - 3.8) MV EXCURSION: 14.013 mm (> 18.000) MV EF SLOPE: 68 mm/s (70 - 150) EPSS: 1.1 cm MV E Magen: 1.27 m/s MV DecT: 150 ms MV A Magen: 0.72 m/s MV E/A Ratio: 1.77 AV maxP.42 mmHg AV meanP.38 mmHg RAP: 5.00 mmHg RVSP: 54.79 mmHg FINDINGS -------- Sinus rhythm. This was a technically adequate study. The left ventricular size is normal. There is moderate concentric left ventricular hypertrophy. O verall left ventricular systolic function is low-normal with, an EF between 50 - 55 %. The right ventricle is moderate to severely enlarged. The left atrium is markedly dilated. LA is severely dilated >40 ml/m2 The right atrial size is normal. Peak/mean gradient across the Aortic Valve is 24.42mmHg / 11.38mmHg. Normally functioning bioprosth etic valve. Mild mitral annular calcification present. [id number] mitral regurgitation is present. Ar ea of Interest MV Leaflet. Mild tricuspid regurgitation present. There is moderate pulmonary hypertension. The right ventric ular systolic pressure, as measured by Doppler, is 54.79mmHg. Trace/mild (physiologic) pulmonic regurgitation. 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 There is no pericardial effusion. CONCLUSIONS -------- 1. The left ventricular size is normal. 2. There is moderate concentric left ventricular hypertrophy. 3. Overall left ventricular systolic function is low-normal with, an EF between 50 - 55 %. 4. The right ventricle is moderate to severely enlarged. 5. The left atrium is markedly dilated. 6. LA is severely dilated >40 ml/m2 7. Peak/mean gradient across the Aortic Valve is 24.42mmHg / 11.38mmHg. 8. Normally functioning bioprosthetic valve. 9. Mild mitral annular calcification present. 10. [id number] mitral regurgitation is present. 11. Area of Interest MV Leaflet. 12. Mild tricuspid regurgitation present. 13. There is moderate pulmonary hypertension. 14. The right ventricular systolic pressure, as measured by Doppler, is 54.79mmHg. 15. Trace/mild (physiologic) pulmonic regurgitation. 16. 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 17. Ascending Aortic is dilated and measures 5.4cm. 18. There is no pericardial effusion. [employer] VEHICLE DRIVER: Martha Wolfe RDCS
--- NOTE | 2017-11-13 11:34 | P.PN ---
Subjective Progress Note Date: 11/13/17 Principal diagnosis: Acute severe anemia secondary to GI bleeding This is a 77-year-old white male with history of multiple medical problems including chronic atrial fibrillation, valvular heart disease, history of bioprosthetic aortic valve replacement, patient is maintained on Coumadin. Patient presented to his physician recently, and routine blood work was done. Then the patient was notified back by his physician that he is hemoglobin was very low. And advised to go to the ER. In the ER, repeat hemoglobin was noted to be 6.2. Patient was complaining of chronic weakness, fatigue, and some shortness of breath. His INR was therapeutic at 2.1. And the patient denies any history of alcohol abuse, no history of taking any nonsteroidal anti- inflammatory drugs. Patient was admitted to the ICU, and I was asked to see him on consultation. According to the patient, for the last 1 month he has been noticing black stools and the first time was about a month ago when he was in [place]. He cut down on his Coumadin dose and then his black stools became better. However intermittently over the last month the patient is noticing intermittent episodes of melena. Patient denies any previous history of GI bleeding, denies any history of peptic ulcer disease, no history of liver disease, no history of recent EGD, his last colonoscopy was over 8 years ago. Patient has been transfused 2 units of packed RBCs so far., and he is to receive his third unit soon. Patient was reevaluated today on 11/13/2017, seems to be doing well, relatively asymptomatic, received a total of 3 units of packed RBCs, he is now receiving 2 units of fresh frozen plasma, scheduled to have colonoscopy and possible EGD today. This will be done around noontime. Patient is presently nothing by mouth, and he is receiving fresh frozen plasma because of a INR of 2.1. Patient denies any headaches no blurred vision no dizziness, no nausea no vomiting, denies any abdominal pain. All labs were reviewed. Chest x-ray was reviewed and showed mostly chronic obstructive lung disease, and some nonspecific parenchymal changes. No suspicion for acute pulmonary process. Objective - Vital Signs Vital signs: Vital Signs Temp 98.6 F 11/13/17 10:45 Pulse 62 11/13/17 10:45 Resp 20 11/13/17 10:45 BP 134/85 11/13/17 10:45 Pulse Ox 96 11/13/17 10:45 Intake & Output 11/12/17 11/13/17 11/13/17 18:59 06:59 18:59 Intake Total 1520 1450 1227 Output Total 250 Balance 1520 1450 977 Weight 98 kg Intake: IV 300 450 350 Sodium Chloride 0.9% 1, 300 450 350 000 ml @ 50 mls/hr IV . Q20H [facility] Rx#:[id number] Oral 600 1000 Blood Product 620 877 Ffp 24 Cpd Unit 290 [id number] Ffp 24 Cpd Unit 297 [id number] Rc As-1 Unit 310 [id number] Rc As-1 Unit 310 [id number] Output: Urine 250 Other: Voiding Method Toilet Toilet Toilet # Voids 1 0 3 # Bowel Movements 1 4 - Exam Physical Exam: Revealed a 77-year-old white male in no distress Head: Atraumatic, normocephalic Eyes: PERRLA, EOMI, no icterus. HEENT:[Neck is supple.] [No neck masses.] [No thyromegaly.] [No JVD.] Moist mucous membranes Chest: [Clear throughout, no crackles, no rhonchi, no wheezes.] Cardiac Exam: [Normal S1 and S2, no S3 gallop, 2/6 systolic murmur thought the precordium.] Abdomen: [Soft, nontender, no megaly, no rebound, no guarding, normal bowel sounds.] Extremities: [No clubbing, no edema, no cyanosis.] Good skin turgor. Neurological Exam: [No focal neurologic deficit.] Lymphatics: No lymphadenopathy Psychiatric: Normal mood affect and mental status examination. - Labs CBC & Chem 7: 11/13/17 03:56 11/13/17 03:56 Labs: Abnormal Lab Results - Last 24 Hours (Table) 11/11/17 11/12/17 11/12/17 Range/Units 21:42 12:34 12:34 RBC (4.30-5.90) m/uL Hgb (13.0-17.5) gm/dL Hct (39.0-53.0) % MCH (25.0-35.0) pg MCHC (31.0-37.0) g/dL RDW (11.5-15.5) % Plt Count (150-450) k/uL Lymphocytes # (1.0-4.8) k/uL PT 18.4 H (9.0-12.0) sec INR 2.0 H (<1.2) BUN 29 H (9-20) mg/dL AST (17-59) U/L ALT (21-72) U/L Total Protein (6.3-8.2) g/dL Albumin (3.5-5.0) g/dL Urine Protein (Negative) Ur Leukocyte Esterase (Negative) Crossmatch See Detail 11/12/17 11/12/17 11/12/17 Range/Units 12:34 14:46 Unknown RBC 3.34 L 3.37 L (4.30-5.90) m/uL Hgb 8.2 L D 8.4 L (13.0-17.5) gm/dL Hct 27.7 L 28.2 L (39.0-53.0) % MCH 24.5 L 24.8 L (25.0-35.0) pg MCHC 29.6 L 29.7 L (31.0-37.0) g/dL RDW 19.2 H 18.4 H (11.5-15.5) % Plt Count (150-450) k/uL Lymphocytes # 0.6 L 0.5 L (1.0-4.8) k/uL PT (9.0-12.0) sec INR (<1.2) BUN (9-20) mg/dL AST (17-59) U/L ALT (21-72) U/L Total Protein (6.3-8.2) g/dL Albumin (3.5-5.0) g/dL Urine Protein Trace H (Negative) Ur Leukocyte Esterase Small H (Negative) Crossmatch 11/13/17 11/13/17 11/13/17 Range/Units 03:56 03:56 03:56 RBC 3.23 L (4.30-5.90) m/uL Hgb 7.8 L (13.0-17.5) gm/dL Hct 26.6 L (39.0-53.0) % MCH 24.2 L (25.0-35.0) pg MCHC 29.4 L (31.0-37.0) g/dL RDW 19.4 H (11.5-15.5) % Plt Count 145 L (150-450) k/uL Lymphocytes # 0.4 L (1.0-4.8) k/uL PT 18.9 H (9.0-12.0) sec INR 2.1 H (<1.2) BUN 23 H (9-20) mg/dL AST 13 L (17-59) U/L ALT 19 L (21-72) U/L Total Protein 5.4 L (6.3-8.2) g/dL Albumin 3.3 L (3.5-5.0) g/dL Urine Protein (Negative) Ur Leukocyte Esterase (Negative) Crossmatch Assessment and Plan Assessment: Impression: 1 acute severe anemia, most likely secondary to upper GI blood losses. However the possibility of lower GI bleeding is not entirely ruled out. Patient will require diagnostic studies by gastroenterology, and I believe he is scheduled for EGD today. Patient has been on Coumadin which is likely a contributing factor to his bleeding, patient is known to have history of aortic valve replacement, bioprosthetic valve, and history of paroxysmal atrial fibrillation. 2 warfarin induced coagulopathy 3 history of multiple comorbidities including hypertension, paroxysmal atrial fibrillation, hyperlipidemia, previous aortic valve replacement using a bioprosthetic valve. Recommendation: Continue present treatment plan, agree with plans as per gastroenterology, patient is presently on overflow, we will likely transfer to [facility] later today. We'll continue to follow. Time with Patient: Less than 30
[2017-11-13 12:01] LABS: INR 1.8 (<1.2); Prothrombin Time 16.4 sec (9.0-12.0)
[2017-11-13] MEDS ORDERED: DOCUSATE 100 MG CAP PO PRN (14:00)
[2017-11-13] MEDS ORDERED: IV FLUID CONTINUATION 1,000 ML IV ONE (14:07)
--- NOTE | 2017-11-13 14:23 | P.PCN ---
Date of Procedure: 11/13/17 Procedure(s) Performed: Brief history: Patient is a pleasant 77-year-old white male, admitted hospital with severe symptomatic anemia and hemoglobin of 6 g/dL. He has history of A. fib and on Coumadin which has been on hold and INR was 1.8. He also recently was fresh was a plasma and 3 units of blood transfusion. He has scheduled for an elective upper endoscopy as well as colonoscopy as a part of evaluation of severe symptomatic anemia and black tarry stools. Procedure performed: Esophagogastroduodenoscopy Colonoscopy Preoperative diagnosis: Black tarry stools Severe symptomatic anemia Anesthesia: MAC Procedure: After informed consent was obtained from the patient was brought into the endoscopy unit and IV sedation was administered by anesthesia under continuous monitoring. Initially upper endoscopy was done. The Olympus GF 160 video endoscope was inserted inserted into the mouth and esophagus intubated without any difficulty and was gradually advanced into the stomach and duodenum and carefully examined. The bulb and second part of the duodenum appeared normal. The scope was then withdrawn into the stomach adequately insufflated with air and upon careful examination the antrum had scattered erosions but no active bleeding. The body, cardia and fundus appeared normal. The scope was then withdrawn into the esophagus. The GE junction was located at 40 cm to the incisors. It appeared regular with no erythema erosions or ulcerations. Rest of the esophagus appeared normal. Patient tolerated the procedure well. At this time the patient continued to remain sedation. Initial digital rectal examination was normal. Olympus CF 160 video colonoscope was then inserted into the rectum and gradually advanced to the cecum without any difficulty. Careful examination was performed as the scope was gradually being withdrawn. The prep was excellent. The cecum, ascending colon, transverse colon, descending colon, sigmoid colon and rectum appeared normal. Scattered sigmoid diverticulosis seen. Retroflexion was performed in the rectum and monitor hemorrhoids were noted. Patient tolerated the procedure well. Impression: 1. Upper endoscopy revealed small hiatal hernia and antral erosive gastritis but no active bleeding. 2. Colonoscopy revealed scattered sigmoid diverticulosis and small internal hemorrhoids. Recommendations: Findings of this examination were discussed with the patient. Continue with Protonix 40 mg daily. Her white NSAIDs. Since there is no evidence of active bleeding, Coumadin can be resumed in 2-3 days.
[2017-11-13] MEDS: SODIUM CHLORIDE 0.9% 1,000 ML IV SCH (18:23)
[2017-11-13] MEDS ORDERED: ACETAMINOPHEN TAB 325 MG TAB PO PRN (19:53)
--- NOTE | 2017-11-13 21:06 | PN ---
PROGRESS NOTE DATE OF SERVICE: 11/13/2017 This 77-year-old gentleman who was admitted with low hemoglobin, GI bleed, is being closely monitored at this time. The patient underwent EGD and colonoscopy by Dr. Rahman. Upper endoscopy showed a small hiatal hernia and antral erosive gastritis but no active bleeding. Colonoscopy revealed scattered sigmoid diverticulosis and small internal hemorrhoids. The patient is being closely monitored at this time. Protonix is being continued. Past medical history reviewed. REVIEW OF SYSTEMS: CARDIOVASCULAR SYSTEM: No angina, palpitations. RESPIRATORY SYSTEM: As mentioned earlier. GI: As mentioned earlier. : No dysuria or retention. NERVOUS SYSTEM: No numbness, weakness. CURRENT MEDICATIONS: Reviewed. They include: 1. Tylenol 650 q.6. 2. Cordarone 100 mg p.o. daily. 3. Lipitor 20 mg at bedtime. 4. Colace 100 mg p.o. daily. 5. Lasix 40 mg daily. 6. Zestril 5 mg daily. 7. Lopressor 50 mg b.i.d. 8. Narcan 0.2 q.2 p.r.n. 9. Protonix 40 mg daily. PHYSICAL EXAMINATION: Patient is alert, oriented x3. Pulse is 64, blood pressure 154/87, respiration 16, temperature 97.4, pulse ox 93% on 2 L. HEENT: Conjunctivae normal. Oral mucosa moist. NECK: No jugular venous distention. No carotid bruit. No lymph node enlargement. CARDIOVASCULAR SYSTEM: S1, S2 muffled. No S3. No S4. RESPIRATORY SYSTEM: Breath sounds diminished at the bases. No rhonchi. No crackles. ABDOMEN: Soft, nontender. No mass palpable. LEGS: No edema. No swelling. NERVOUS SYSTEM: No focal deficit. LABS: Hemoglobin 7.8. INR is 1.8. ASSESSMENT: 1. Anemia, acute on chronic gastrointestinal blood loss anemia, upper endoscopy showing small hiatal hernia and antral erosive gastritis. 2. Colonoscopy showing scattered diverticulosis as well as internal hemorrhoids. 3. Hypertension. 4. Atrial fibrillation. 5. Hyperlipidemia. 6. History of cardiac valve replacement. 7. History of aortic valve replacement with aneurysmorrhaphy. RECOMMENDATIONS AND DISCUSSION: I recommend to continue current medication, continue symptomatic treatment. Repeat labs. Monitor PT/INR closely. According to Dr. Rahman, Coumadin could be resumed in the near future. Otherwise, prognosis is guarded because of the multiple complex medical issues.. Further recommendations to follow. MMODL / IJN: [id number] /
[2017-11-13] MEDS: ATORVASTATIN 20 MG TAB PO SCH (22:22)
[2017-11-14 01:29] VITALS: PULSE 69; RESP 18
[2017-11-14] MEDS: METOPROLOL TARTRATE 50 MG TAB PO SCH ×2 (04:48→09:36)
[2017-11-14 07:06] VITALS: BP 126/72; TEMP 98.5
[2017-11-14 08:06] LABS: Anisocytosis Slight; Basophils % (A) 0 %; Eosinophils # (A) 0.1 k/uL (0-0.7); Eosinophils % (A) 2 %; HCT 26.4 % (39.0-53.0); HGB 7.8 gm/dL (13.0-17.5); Hypochromasia Marked; Lymphocytes # (A) 0.4 k/uL (1.0-4.8); Lymphocytes % (A) 8 %; MCHC 29.4 g/dL (31.0-37.0); MCV 81.7 fL (80.0-100.0); Mean Platelet Volume 7.8; Microcytosis Slight; Monocytes # (A) 0.4 k/uL (0-1.0); Monocytes % (A) 8 %; Neutrophils # (A) 4.1 k/uL (1.3-7.7); Neutrophils % (A) 79 %; Platelet Count 159 k/uL (150-450); Poikilocytosis Marked; RBC 3.23 m/uL (4.30-5.90); RDW 19.7 % (11.5-15.5); WBC 5.2 k/uL (3.8-10.6)
[2017-11-14 08:15] LABS: Anion Gap 11 mmol/L; Blood Urea Nitrogen 20 mg/dL (9-20); Calcium 8.4 mg/dL (8.4-10.2); Carbon Dioxide 29 mmol/L (22-30); Chloride 104 mmol/L (98-107); Glucose 98 mg/dL (74-99); Sodium 144 mmol/L (137-145)
[2017-11-14 08:23] LABS: INR 1.7 (<1.2); Prothrombin Time 15.8 sec (9.0-12.0)
--- NOTE | 2017-11-14 09:31 | P.PN ---
Subjective Progress Note Date: 11/14/17 Principal diagnosis: Severe blood loss anemia secondary to GI bleeding This is a 77-year-old white male with history of multiple medical problems including chronic atrial fibrillation, valvular heart disease, history of bioprosthetic aortic valve replacement, patient is maintained on Coumadin. Patient presented to his physician recently, and routine blood work was done. Then the patient was notified back by his physician that he is hemoglobin was very low. And advised to go to the ER. In the ER, repeat hemoglobin was noted to be 6.2. Patient was complaining of chronic weakness, fatigue, and some shortness of breath. His INR was therapeutic at 2.1. And the patient denies any history of alcohol abuse, no history of taking any nonsteroidal anti- inflammatory drugs. Patient was admitted to the ICU, and I was asked to see him on consultation. According to the patient, for the last 1 month he has been noticing black stools and the first time was about a month ago when he was in [place]. He cut down on his Coumadin dose and then his black stools became better. However intermittently over the last month the patient is noticing intermittent episodes of melena. Patient denies any previous history of GI bleeding, denies any history of peptic ulcer disease, no history of liver disease, no history of recent EGD, his last colonoscopy was over 8 years ago. Patient has been transfused 2 units of packed RBCs so far., and he is to receive his third unit soon. Patient was reevaluated today on 11/13/2017, seems to be doing well, relatively asymptomatic, received a total of 3 units of packed RBCs, he is now receiving 2 units of fresh frozen plasma, scheduled to have colonoscopy and possible EGD today. This will be done around noontime. Patient is presently nothing by mouth, and he is receiving fresh frozen plasma because of a INR of 2.1. Patient denies any headaches no blurred vision no dizziness, no nausea no vomiting, denies any abdominal pain. All labs were reviewed. Chest x-ray was reviewed and showed mostly chronic obstructive lung disease, and some nonspecific parenchymal changes. No suspicion for acute pulmonary process. On 11/14/2017 patient seen in follow-up. He is awake, alert, comfortable, in no acute distress. He is on room air, vital signs are stable, he is hemodynamically stable. Has not had any recurrence of GI bleeding. Denies any chest pain, denies any dyspnea denies any lightheadedness or dizziness. He had a colonoscopy and EGD yesterday by Dr. Pete which revealed small hiatal hernia and antral erosive gastritis, but no active bleeding. Colonoscopy revealed scattered sigmoid diverticulosis and small internal hemorrhoids. Patient continues on Protonix 40 mg daily, has Coumadin on hold, and the GI service 's plan on restarting the Coumadin in 2-3 days. he has received 3 units of packed red blood cells and 2 units of fresh frozen plasma during this admission, and today's hemoglobin is 7.8, his INR is 1.7, his electrolytes and renal profile within normal limits, no acute events overnight. We will sign off at this time and followed on an as-needed basis. Objective - Vital Signs Vital signs: Vital Signs Temp 98.5 F 11/14/17 06:00 Pulse 69 11/14/17 06:00 Resp 18 11/14/17 06:00 BP 126/72 11/14/17 06:00 Pulse Ox 97 11/14/17 06:00 Intake & Output 11/13/17 11/14/17 11/14/17 18:59 06:59 18:59 Intake Total 1627 600 Output Total 475 Balance 1152 600 Intake: IV 450 Sodium Chloride 0.9% 1, 350 000 ml @ 50 mls/hr IV . Q20H [facility] Rx#:[id number] Oral 600 Blood Product 1177 Ffp 24 Cpd Unit 290 [id number] Ffp 24 Cpd Unit 297 [id number] Output: Urine 475 Other: Voiding Method Toilet Toilet # Voids 0 1 - Exam GENERAL EXAM: Alert, pleasant 77-year-old white male comfortable in no apparent distress. HEAD: Normocephalic/atraumatic. EYES: Normal reaction of pupils, equal size. Conjunctiva pink, sclera white. NOSE: Clear with pink turbinates. THROAT: No erythema or exudates. NECK: No masses, no JVD, no thyroid enlargement, no adenopathy. CHEST: No chest wall deformity. Symmetrical expansion. LUNGS: Equal air entry with no crackles, wheeze, rhonchi or dullness. CVS: Regular rate and rhythm, normal S1 and S2, no gallops, no rubs, there is a soft systolic murmur noted loudest over the right precordium ABDOMEN: Soft, nontender. No hepatosplenomegaly, normal bowel sounds, no guarding or rigidity. EXTREMITIES: No clubbing, no edema, no cyanosis, 2+ pulses and upper and lower extremities. MUSCULOSKELETAL: Muscle strength and tone normal. SPINE: No scoliosis or deformity SKIN: No rashes CENTRAL NERVOUS SYSTEM: Alert and oriented -3. No focal deficits, tone is normal in all 4 extremities. PSYCHIATRIC: Alert and oriented -3. Appropriate affect. Intact judgment and insight. - Labs CBC & Chem 7: 11/14/17 07:43 11/14/17 07:43 Labs: Abnormal Lab Results - Last 24 Hours (Table) 11/11/17 11/13/17 11/14/17 Range/Units 21:42 11:32 07:43 RBC 3.23 L (4.30-5.90) m/uL Hgb 7.8 L (13.0-17.5) gm/dL Hct 26.4 L (39.0-53.0) % MCH 24.0 L (25.0-35.0) pg MCHC 29.4 L (31.0-37.0) g/dL RDW 19.7 H (11.5-15.5) % Lymphocytes # 0.4 L (1.0-4.8) k/uL PT 16.4 H (9.0-12.0) sec INR 1.8 H (<1.2) Crossmatch See Detail 11/14/17 Range/Units 07:43 RBC (4.30-5.90) m/uL Hgb (13.0-17.5) gm/dL Hct (39.0-53.0) % MCH (25.0-35.0) pg MCHC (31.0-37.0) g/dL RDW (11.5-15.5) % Lymphocytes # (1.0-4.8) k/uL PT 15.8 H (9.0-12.0) sec INR 1.7 H (<1.2) Crossmatch Assessment and Plan Plan: Chest: 1 acute severe anemia, most likely secondary to upper GI blood losses. However the possibility of lower GI bleeding is not entirely ruled out. Patient will require diagnostic studies by gastroenterology, and I believe he is scheduled for EGD today. Patient has been on Coumadin which is likely a contributing factor to his bleeding, patient is known to have history of aortic valve replacement, bioprosthetic valve, and history of paroxysmal atrial fibrillation. 2 warfarin induced coagulopathy 3 history of multiple comorbidities including hypertension, paroxysmal atrial fibrillation, hyperlipidemia, previous aortic valve replacement using a bioprosthetic valve. Plan: Patient remains hemodynamically stable, has not had any recurrence of GI bleeding. Vital signs are stable, he denies any chest pain or dyspnea, denies any lightheadedness. No acute events overnight, anticipate discharge home today. We will sign off at this time and follow on as-needed basis. Thank you for this consultation I performed a history & physical examination of the patient and discussed their management with my nurse practitioner, Margaret Mehta. I reviewed the nurse practitioner's note and agree with the documented findings and plan of care. Lung sounds are clear. The findings and the impression was discussed with the patient. I attest to the documentation by the nurse practitioner. Time with Patient: Less than 30
[2017-11-14] MEDS: LISINOPRIL 5 MG TAB PO SCH (09:35)
[2017-11-14] MEDS: FUROSEMIDE 40 MG TAB PO SCH (09:35)
[2017-11-14] MEDS: AMIODARONE 100 MG TAB PO SCH (09:35)
[2017-11-14] MEDS: PANTOPRAZOLE 40 MG/10 ML VIAL IVP SCH (09:36)
--- NOTE | 2017-11-14 11:54 | P.PN ---
Subjective Progress Note Date: 11/14/17 Principal diagnosis: GI bleed anemia Admitted with recent melena and anemia. Status post EGD colonoscopy yesterday no evidence of peptic ulcer disease antral erosive gastritis seen but no active bleeding. Scattered sigmoid diverticulosis small internal hemorrhoids. Patient feels well this morning. Afebrile. Tolerating regular diet. No bleeding. Hemoglobin 7.8. INR 1.7. Objective - Vital Signs Vital signs: Vital Signs Temp 98.5 F 11/14/17 06:00 Pulse 69 11/14/17 06:00 Resp 18 11/14/17 06:00 BP 126/72 11/14/17 06:00 Pulse Ox 97 11/14/17 06:00 Intake & Output 11/13/17 11/14/17 11/14/17 18:59 06:59 18:59 Intake Total 1627 600 Output Total 475 Balance 1152 600 Intake: IV 450 Sodium Chloride 0.9% 1, 350 000 ml @ 50 mls/hr IV . Q20H [facility] Rx#:[id number] Oral 600 Blood Product 1177 Ffp 24 Cpd Unit 290 [id number] Ffp 24 Cpd Unit 297 [id number] Output: Urine 475 Other: Voiding Method Toilet Toilet # Voids 0 1 - Exam General appearance: The patient is alert, oriented, in no acute distress. HET: Head is normocephalic and atraumatic. Pupils are equal and reactive. Oropharynx is clear without lesions. Neck: Supple without lymphadenopathy. Trachea midline. Heart: S1 S2. Regular rate and rhythm. Lungs: No crackles or wheezes are heard. Abdomen: Soft, nontender, nondistended with bowel sounds. No peritoneal signs. No palpable organomegaly or masses. Extremities: Normal skin color and turgor. No cyanosis, rash, ulceration, clubbing, or edema. Radial and pedal pulses are 2/4 bilaterally. Neurological: No focal deficits. Strength and sensation are grossly intact. - Labs CBC & Chem 7: 11/14/17 07:43 11/14/17 07:43 Labs: Abnormal Lab Results - Last 24 Hours (Table) 11/13/17 11/14/17 11/14/17 Range/Units 11:32 07:43 07:43 RBC 3.23 L (4.30-5.90) m/uL Hgb 7.8 L (13.0-17.5) gm/dL Hct 26.4 L (39.0-53.0) % MCH 24.0 L (25.0-35.0) pg MCHC 29.4 L (31.0-37.0) g/dL RDW 19.7 H (11.5-15.5) % Lymphocytes # 0.4 L (1.0-4.8) k/uL PT 16.4 H 15.8 H (9.0-12.0) sec INR 1.8 H 1.7 H (<1.2) Assessment and Plan (1) GI bleed Narrative/Plan: Secondary to possible antral erosive gastritis possible diverticular exacerbated by warfarin-induced coagulopathy. Current Visit: Yes Status: Acute Code(s): K92.2 - GASTROINTESTINAL HEMORRHAGE, UNSPECIFIED SNOMED Code(s): 36038196 (2) H/O aortic valve replacement Current Visit: Yes Status: Acute Code(s): Z95.2 - PRESENCE OF PROSTHETIC HEART VALVE SNOMED Code(s): 3358751186297 (3) Warfarin-induced coagulopathy Current Visit: Yes Status: Acute Code(s): D68.32 - HEMORRHAGIC DISORD D/T EXTRINSIC CIRCULATING ANTICOAGULANTS; T45.515A - ADVERSE EFFECT OF ANTICOAGULANTS, INITIAL ENCOUNTER SNOMED Code(s): 91846777 (4) Acute blood loss anemia Current Visit: Yes Status: Acute Code(s): D62 - ACUTE POSTHEMORRHAGIC ANEMIA SNOMED Code(s): 047487134 (5) Symptomatic anemia Current Visit: Yes Status: Acute Code(s): D64.9 - ANEMIA, UNSPECIFIED SNOMED Code(s): 414056177 Plan: 1. DC per medicine. Restart anticoagulation in 2 days. Advised Protonix 40 mg daily/omeprazole 20 mg daily on discharge. Assessment and plan a care discussed with Dr. Rahman
--- NOTE | 2017-11-14 12:08 | P.PN ---
Subjective Progress Note Date: 11/14/17 Mr. Rodriguez is a pleasant 68-year-old male past medical history significant for bioprosthetic aortic valve replacement, ascending aortic aneurysm repair, atrial fibrillation s/p cardioversion, hypertension and dyslipidemia. He underwent an EGD and colonoscopy yesterday which revealed no active bleeding. Recommendations were made to resume anticoagulation in 2-3 days. This has been communicated to the patient. He denies symptoms of chest pain, shortness of breath, dizziness, palpitations, nausea or vomiting. Blood pressure 126/72 heart rate 69 maintaining sinus mechanism. Hgb 7.8, plt 159, potassium 4.0, sodium 144, iNR 1.7. Objective - Vital Signs Vital signs: Vital Signs Temp 98.5 F 11/14/17 06:00 Pulse 69 11/14/17 06:00 Resp 18 11/14/17 06:00 BP 126/72 11/14/17 06:00 Pulse Ox 97 11/14/17 06:00 Intake & Output 11/13/17 11/14/17 11/14/17 18:59 06:59 18:59 Intake Total 1627 600 Output Total 475 Balance 1152 600 Intake: IV 450 Sodium Chloride 0.9% 1, 350 000 ml @ 50 mls/hr IV . Q20H [facility] Rx#:[id number] Oral 600 Blood Product 1177 Ffp 24 Cpd Unit 290 [id number] Ffp 24 Cpd Unit 297 [id number] Output: Urine 475 Other: Voiding Method Toilet Toilet # Voids 0 1 - Exam GENERAL: Well-appearing, well-nourished and in no acute distress. NECK: Supple without JVD or thyromegaly. LUNGS: Breath sounds clear to auscultation bilaterally. Respiration equal and unlabored. No wheezes, rales or rhonchi. HEART: Regular rate and rhythm with systolic murmur at the base, no rubs or gallops. S1 and S2 heard. EXTREMITIES: Normal range of motion, no edema. No clubbing or cyanosis. Peripheral pulses intact and strong. - Labs CBC & Chem 7: 11/14/17 07:43 11/14/17 07:43 Labs: Abnormal Lab Results - Last 24 Hours (Table) 11/13/17 11/14/17 11/14/17 Range/Units 11:32 07:43 07:43 RBC 3.23 L (4.30-5.90) m/uL Hgb 7.8 L (13.0-17.5) gm/dL Hct 26.4 L (39.0-53.0) % MCH 24.0 L (25.0-35.0) pg MCHC 29.4 L (31.0-37.0) g/dL RDW 19.7 H (11.5-15.5) % Lymphocytes # 0.4 L (1.0-4.8) k/uL PT 16.4 H 15.8 H (9.0-12.0) sec INR 1.8 H 1.7 H (<1.2) Assessment and Plan Assessment: ASSESSMENT 1. Gastrointestinal bleeding, EGD colonoscopy completed yesterday revealed no signs of active bleeding. 2. Paroxysmal atrial fibrillation remains in sinus mechanism status post cardioversion last year 3. Status post aortic valve replacement and repair of the ascending aorta 4. Dyslipidemia 5. Hypertension PLAN Continue current medical therapy. As per recommendations of the wastewater supervisor Coumadin can be resumed in 2-3 days. Plan as been discussed with the patient in detail and he verbalizes understanding. Follow-up with Dr. MARK Falk in 2 weeks. The above impression and plan of care have been discussed and directed by the signing physician. Sandra Garcia, nurse practitioner, acting as scribe for signing physician.
[2017-11-14] MEDS: SODIUM CHLORIDE 0.9% 1,000 ML IV SCH (14:08)
--- NOTE | 2017-11-14 17:28 | DS ---
DISCHARGE SUMMARY DATE OF SERVICE: 11/14/2017. FINAL DIAGNOSES: 1. Anemia, acute on chronic gastrointestinal blood loss anemia. Upper endoscopy showed a small hiatal hernia and antral erosive gastritis. 2. Colonoscopy showing scattered diverticulosis as well as internal hemorrhoids. 3. Hypertension. 4. Atrial fibrillation. 5. Hyperlipidemia. 6. History of cardiac valve replacement. 7. History of aortic valve replacement and with aneurysmorrhaphy. DISCHARGE DISPOSITION: The patient is being discharged in stable condition with guarded prognosis. HISTORY OF PRESENT ILLNESS: This 77-year-old gentleman with a past medical history of multiple medical problems was admitted with anemia, acute on chronic gastrointestinal bleed. The endoscopic findings as above. Patient treated symptomatically. Hemoglobin is currently stable at 7.8. Three units of transfusion and two units of fresh frozen plasma given. On exam, vitals are stable. Cardiovascular: S1, S2. Abdomen: Soft. Nervous System: No focal deficits. DISCHARGE ADVICE AND MEDICATIONS: 1. Diet is soft, cardiac. 2. Activity limited until followup. 3. Follow up with Dr. Bonilla Falk and Dr. Laly Saucedo in [place] as advised. MEDICATIONS: 1. Tylenol 650 q.6h. 2. Cordarone 100 mg p.o. daily. 3. Lipitor 20 mg q.h.s. 4. Colace 100 mg daily p.r.n. 5. Lasix 40 mg p.o. b.i.d. 6. Zestril 5 mg p.o. daily. 7. Lopressor 50 mg p.o. b.i.d. 8. Vitamin C, zinc, copper 1 capsule p.o. daily. MMODL / IJN: [id number] /
== END 2017-11-14 14:23 | disposition home or self-care (01) | DRG 378 ==
LOC: EC 22:15 → 6ICU 11-12 01:00 → 4MS4W 11-13 15:39
PROVIDERS: ADMIT Hospitalist; ATTEND Hospitalist
PROC: 30233N1 Transfusion of Nonautologous Red Blood Cells into Peripheral Vein, Percutaneous Approach (ICD-10-PCS; 2017-11-12)
PROC: 0DJ08ZZ Inspection of Upper Intestinal Tract, Via Natural or Artificial Opening Endoscopic (ICD-10-PCS; 2017-11-12)
PROC: 0DJD8ZZ Inspection of Lower Intestinal Tract, Via Natural or Artificial Opening Endoscopic (ICD-10-PCS; 2017-11-12)
PROC: 30233K1 Transfusion of Nonautologous Frozen Plasma into Peripheral Vein, Percutaneous Approach (ICD-10-PCS; principal; 2017-11-13 13:10)
DX: K29.01 Acute gastritis with bleeding (principal); D62 Acute posthemorrhagic anemia; I48.0 Paroxysmal atrial fibrillation; J44.9 Chronic obstructive pulmonary disease, unspecified; I10 Essential (primary) hypertension; E78.5 Hyperlipidemia, unspecified; R01.1 Cardiac murmur, unspecified; R79.1 Abnormal coagulation profile; T45.515A Adverse effect of anticoagulants, initial encounter; I48.2 Chronic atrial fibrillation; I44.0 Atrioventricular block, first degree; K64.8 Other hemorrhoids; R53.1 Weakness; K44.9 Diaphragmatic hernia without obstruction or gangrene; K57.30 Diverticulosis of large intestine without perforation or abscess without bleeding; Z86.79 Personal history of other diseases of the circulatory system; Z79.899 Other long term (current) drug therapy; Z79.01 Long term (current) use of anticoagulants; Z79.82 Long term (current) use of aspirin; Z80.9 Family history of malignant neoplasm, unspecified; Z87.891 Personal history of nicotine dependence; Z95.2 Presence of prosthetic heart valve
CPT/HCPCS: 36415; 43235; 71045; 80048; 80053; 81001; 82272; 82550; 82553; 83690; 83735; 84443; 84484; 85025; 85610; 85730; 86850; 86900; 86901; 86920; 93306; 96374; 99285

== ENCOUNTER → 2017-11-19 | Outpatient (CLI) | payer MEDICARE, BC ==
[2017-11-19 12:44] LABS: INR 1.2 (<1.2); Prothrombin Time 11.1 sec (9.0-12.0)
[2017-11-19 12:48] LABS: Calcium 8.9 mg/dL (8.4-10.2); Potassium 4.6 mmol/L (3.5-5.1)
[2017-11-19 12:54] LABS: Anisocytosis Slight; HCT 30.5 % (39.0-53.0); HGB 8.9 gm/dL (13.0-17.5); Hypochromasia Marked; MCH 23.8 pg (25.0-35.0); MCHC 29.1 g/dL (31.0-37.0); MCV 81.7 fL (80.0-100.0); Mean Platelet Volume 8.1; Microcytosis Slight; Platelet Count 232 k/uL (150-450); Poikilocytosis Marked; RBC 3.73 m/uL (4.30-5.90); RDW 19.1 % (11.5-15.5); WBC 4.3 k/uL (3.8-10.6)
[2017-11-19 13:36] LABS: Eosinophils # (M) 0.09 k/uL (0-0.7); Lymphocytes # (M) 0.86 k/uL (1.0-4.8); Monocytes # (M) 0.09 k/uL (0-1.0); Neutrophils # (M) 3.27 k/uL (1.3-7.7); Neutrophils % (M) 76 %; Nucleated Red Blood Cells 0 /100 WBC (0-0); Polychromasia Present; Total Cells Counted 100
== END ==
LOC: LABWHC1 12:15
PROVIDERS: ATTEND Hospitalist
DX: I48.0 Paroxysmal atrial fibrillation (principal); D64.9 Anemia, unspecified
CPT/HCPCS: 36415; 80048; 85025; 85610

== ENCOUNTER → 2017-12-11 | Outpatient (CLI) | payer MEDICARE, BC ==
[2017-12-11 12:07] LABS: Anisocytosis Moderate; HCT 36.8 % (39.0-53.0); Hypochromasia Marked; MCH 23.8 pg (25.0-35.0); MCV 79.3 fL (80.0-100.0); Mean Platelet Volume 8.3; Microcytosis Moderate; Platelet Count 181 k/uL (150-450); Poikilocytosis Slight; RBC 4.64 m/uL (4.30-5.90); RDW 23.7 % (11.5-15.5); WBC 3.9 k/uL (3.8-10.6)
[2017-12-11 12:20] LABS: Prothrombin Time 18.4 sec (9.0-12.0)
== END | disposition home or self-care (01) ==
LOC: LABWHC1 11:43
PROVIDERS: ATTEND Internal Medicine Interventional Cardiology
DX: K92.2 Gastrointestinal hemorrhage, unspecified (principal); D64.9 Anemia, unspecified
CPT/HCPCS: 36415; 85027; 85610

== ENCOUNTER 2020-02-03 14:57 | Emergency (ER) | payer MEDICARE, BC ==
[2020-02-03 15:01] VITALS: BP 132/85; PULSE 114; RESP 20; TEMP 98.8
--- NOTE | 2020-02-03 15:43 | ED ---
Fall HPI - General Source: patient, RN notes reviewed, old records reviewed Mode of arrival: ambulatory <Moni Ying - Last Filed: 02/04/20 06:50> <Pratibha Peralta - Last Filed: 02/04/20 23:15> - General Chief Complaint: Fall Stated Complaint: Fall Time Seen by Provider: 02/03/20 15:20 - History of Present Illness Initial Comments: 79-year-old male present to return today with left harrington pain and left-sided rib pain after trip and fall on January 22. Patient reports he tripped on a step falling forward hitting his harrington on the edge of the step and then hitting his left ribs on a chair, flowerpot. He states that he came today because of the swelling into the calf as well as the persistent left rib pain. He also reports that he was around somebody was coded and wants to have a swab to check to see if he has. Patient denies any significant symptoms for Covid including fevers or chills. Denies significant shortness of breath. (Moni Ying) - Related Data Home Medications Medication Instructions Recorded Confirmed Atorvastatin [Lipitor] 20 mg PO HS 02/20/17 02/03/20 Metoprolol Tartrate [Lopressor] 50 mg PO BID 02/20/17 02/03/20 Amiodarone [Cordarone] 100 mg PO DAILY 02/03/20 02/03/20 Furosemide [Lasix] 40 mg PO BID 02/03/20 02/03/20 Warfarin [Coumadin] 7.5 mg PO HS 02/03/20 02/03/20 Previous Rx's Medication Instructions Recorded Lisinopril [Zestril] 5 mg PO DAILY #30 tablet 02/23/17 Sulfamethox-Tmp 800-160Mg [Bactrim 2 tab PO Q12HR #40 tab 02/03/20 DS 800-160 mg] Allergies Allergy/AdvReac Type Severity Reaction Status Date / Time No Known Allergies Allergy Verified 02/03/20 16:22 Review of Systems ROS Other: All systems not noted in ROS Statement are negative. <Moni Ying - Last Filed: 02/04/20 06:50> ROS Other: All systems not noted in ROS Statement are negative. <Pratibha Peralta - Last Filed: 02/04/20 23:15> ROS Statement: Those systems with pertinent positive or pertinent negative responses have been documented in the HPI. Past Medical History Past Medical History: Atrial Fibrillation, Hyperlipidemia, Hypertension Additional Past Medical History / Comment(s): . History of Any Multi-Drug Resistant Organisms: None Reported Past Surgical History: Cardiac Valve Replacement, Heart Catheterization Additional Past Surgical History / Comment(s): colonoscopy, AVR WITH ANEURYSMORRHAPHY 03/08/[address] ARVIZU. Past Anesthesia/Blood Transfusion Reactions: No Reported Reaction Past Psychological History: No Psychological Hx Reported Smoking Status: Former smoker Past Alcohol Use History: Occasional Past Drug Use History: None Reported - Past Family History Mother Family Medical History: Cancer <Moni Ying - Last Filed: 02/04/20 06:50> General Exam Limitations: no limitations General appearance: alert, in no apparent distress Head exam: Present: atraumatic, normocephalic, normal inspection Eye exam: Present: normal appearance, PERRL, EOMI. Absent: scleral icterus, conjunctival injection, periorbital swelling ENT exam: Present: normal exam Neck exam: Present: normal inspection. Absent: tenderness, meningismus, lymphadenopathy Respiratory exam: Present: normal lung sounds bilaterally, other (tenderness over L ribs ). Absent: respiratory distress, wheezes, rales, rhonchi, stridor Cardiovascular Exam: Present: regular rate, normal rhythm, normal heart sounds. Absent: systolic murmur, diastolic murmur, rubs, gallop, clicks GI/Abdominal exam: Present: soft, normal bowel sounds. Absent: distended, tenderness, guarding, rebound, rigid Extremities exam: Present: normal inspection, full ROM, normal capillary refill. Absent: tenderness, pedal edema, joint swelling, calf tenderness Right Upper Leg exam: Present: normal inspection, full ROM Knee exam: Present: normal inspection, full ROM. Absent: crepitus Lower Leg exam: Present: full ROM, tenderness (erythema over mid harrington with hematoma, small abrasion over mid harrington. scar from previous laceration. ), swelling. Absent: normal inspection Foot/Toe exam: Present: ecchymosis (swelling into toes and foot from dependent echymosis). Absent: normal inspection Neurovascular tendon exam: Present: no vascular compromise Back exam: Present: normal inspection Neurological exam: Present: alert, oriented X3, CN II-XII intact Psychiatric exam: Present: normal affect, normal mood Skin exam: Present: warm, dry, intact, normal color. Absent: rash <Moni Ying - Last Filed: 02/04/20 06:50> Course Vital Signs 02/03/20 14:58 Temperature 98.8 F Pulse Rate 114 H Respiratory 20 Rate Blood Pressure 132/85 O2 Sat by Pulse 96 Oximetry Medical Decision Making - Radiology Data Radiology results: report reviewed <Moni Ying - Last Filed: 02/04/20 06:50> <Pratibha Peralta - Last Filed: 02/04/20 23:15> - Medical Decision Making 79-year-old male presents raise from today after tripping fall on January 22 landing on his left harrington and left ribs. Patient states of some tenderness over the ribs but no bruising is noted. Lungs are clear throughout lung roberson. Patient leg she is evidence of deep hematoma over the left anterior harrington with small abrasions. X-ray was performed shows no fractures but there is evidence of a possible soft tissue foreign body. Patient reported these results. I discussed with his history of being on Coumadin has a large hematoma but he did not want to attempt to remove the small foreign body at this time sits already healed over the entrance site. I discussed putting the Patient on antibiotics for minor cellulitis at this time. He does have some dependent bruising over the foot and ankle which she reports is resolving signs on. I discussed appropriate follow-up with orthopedic for the soft tissue foreign body. All questions answered. I also discussed checking his Coumadin level with being on antibiotics. (Moni Ying) I was available for consultation in the emergency department. The history and physical exam were done by the midlevel provider. I was consulted for this patients care. I reviewed the case with the midlevel provider and based on their presentation of the patient, I agree with the assessment, medical decision making and plan of care as documented. Chart was dictated using Rel[employer] dictation software. Attempts were made to correct any dictation errors however some typographical errors may persist. Patient was seen during a national state of emergency due to the Covid-19 pandemic. (Pratibha Peralta) - Lab Data Lab Results 02/03/20 Range/Units 15:39 Coronavirus (PCR) Not Detected (Not Detected) - Radiology Data Tib-fib x-ray shows soft tissue swelling. No fracture is noted. There is small density in the soft tissues of the pretibial leg may be due to calcification difficult to exclude foreign body. Chest and rib x-ray shows no displaced fracture evident. Bone scan can be performed for increasing sensitivity is detected. Evidence of postop changes. (Moni Ying) Disposition Is patient prescribed a controlled substance at d/c from ED?: No Time of Disposition: 16:46 <Moni Ying - Last Filed: 02/04/20 06:50> <Pratibha Peralta - Last Filed: 02/04/20 23:15> Clinical Impression: Fall, Soft tissues foreign body, Rib contusion, Cellulitis, leg, Contusion of leg Disposition: HOME SELF-CARE Condition: Good Instructions (If sedation given, give patient instructions): Cellulitis (ED), Hematoma (ED) Additional Instructions: Follow-up with your primary care doctor to have Coumadin levels checked after taking antibiotic as this can affect the Coumadin level. Monitor for any worsening swelling or drainage. Patient should follow-up with orthopedic for the foreign body within the soft tissue. Prescriptions: Sulfamethox-Tmp 800-160Mg [Bactrim DS 800-160 mg] 2 tab PO Q12HR #40 tab Referrals: [facility],Clinic [Primary Care Provider] - 1-2 days Arnulfo Kahn MD [STAFF PHYSICIAN] - 1-2 days
--- NOTE | 2020-02-03 16:07 | XR ---
Left leg HISTORY: Trauma and pain Frontal and lateral views of the left leg Bone mineralization is mildly reduced. Joint spaces and alignment are maintained. There is soft tissu e swelling. 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 Probable vascular calcifications xochitl g the distribution of the popliteal artery. Small colic density in the soft tissues of the pretibial leg may be due to calcification, difficult to exclude foreign body. IMPRESSION: Soft tissue swelling. No fracture or dislocation is evident. Additional findings above.
--- NOTE | 2020-02-03 16:09 | XR ---
Chest x-ray and left RIBS HISTORY: Trauma and pain Frontal Chest x-ray, 4 views of the left ribs submitted Correlation to prior chest x-ray 11/12/2017 Patient is post median sternotomy. Heart remains enlarged. Interstitium is increased. Aorta is dense. No pneumothorax or pleural effusion. No evident displaced rib fracture. Inferior sternal wire is fra ctured. IMPRESSION: No displaced fracture evident, bone scan could be performed for increased sensitivity as indicated. Migraine postop changes. Additional findings above.
== END 2020-02-03 16:59 | disposition home or self-care (01) ==
LOC: EC 14:57
DX: S20.212A Contusion of left front wall of thorax, initial encounter (principal); S80.12XA Contusion of left lower leg, initial encounter; L03.116 Cellulitis of left lower limb; M79.5 Residual foreign body in soft tissue; I48.91 Unspecified atrial fibrillation; I10 Essential (primary) hypertension; E78.5 Hyperlipidemia, unspecified; Z79.01 Long term (current) use of anticoagulants; Z79.899 Other long term (current) drug therapy; Z87.891 Personal history of nicotine dependence; Z95.4 Presence of other heart-valve replacement; W01.198A Fall on same level from slipping, tripping and stumbling with subsequent striking against other object, initial encounter
CPT/HCPCS: 71101; 73590; 99284; U0003

== ENCOUNTER 2020-03-13 14:04 | Inpatient (IN) | payer MEDICARE, BC ==
--- NOTE | 2020-03-13 14:37 | ED ---
General Adult HPI - General Chief complaint: Shortness of Breath Stated complaint: Dyspnea Time Seen by Provider: 03/13/20 14:14 Source: patient, RN notes reviewed Mode of arrival: wheelchair Limitations: no limitations - History of Present Illness Initial comments: Patient is a pleasant 79-year-old male presenting to the emergency department with dyspnea. Onset of symptoms was 4 days ago. Symptoms have progressed since that time. A harrington has fatigue. Patient has exertional dyspnea and orthopnea. Patient has history of similar symptoms previously associated with atrial fibrillation. Patient didn't need cardioversion at that time. He should did see his bi solutions architect and amiodarone dose was increased. No associated chest pain or palpitations. - Related Data Home Medications Medication Instructions Recorded Confirmed Metoprolol Tartrate [Lopressor] 50 mg PO TID 02/20/17 03/13/20 Amiodarone [Cordarone] 200 mg PO BID 02/03/20 03/13/20 Furosemide [Lasix] 40 mg PO BID@0900,1600 02/03/20 03/13/20 Warfarin [Coumadin] 7.5 mg PO SUTUWETHSA@2100 02/03/20 03/13/20 Warfarin [Coumadin] 5 mg PO MOFR@2100 03/13/20 03/13/20 Previous Rx's Medication Instructions Recorded lisinopriL [Zestril] 5 mg PO DAILY #30 tablet 02/23/17 Allergies Allergy/AdvReac Type Severity Reaction Status Date / Time No Known Allergies Allergy Verified 03/13/20 15:02 Review of Systems ROS Statement: Those systems with pertinent positive or pertinent negative responses have been documented in the HPI. ROS Other: All systems not noted in ROS Statement are negative. Constitutional: Denies: fever Eyes: Denies: eye pain ENT: Denies: ear pain Respiratory: Reports: dyspnea. Denies: cough Cardiovascular: Denies: chest pain Endocrine: Reports: fatigue Gastrointestinal: Denies: abdominal pain Genitourinary: Denies: dysuria Musculoskeletal: Denies: back pain Skin: Denies: rash Neurological: Denies: weakness Past Medical History Past Medical History: Atrial Fibrillation, Hyperlipidemia, Hypertension Additional Past Medical History / Comment(s): . History of Any Multi-Drug Resistant Organisms: None Reported Past Surgical History: Cardiac Valve Replacement, Heart Catheterization Additional Past Surgical History / Comment(s): colonoscopy, AVR WITH ANEURYSMORRHAPHY 03/08/[address] ARVIZU. Past Anesthesia/Blood Transfusion Reactions: No Reported Reaction Past Psychological History: No Psychological Hx Reported Smoking Status: Former smoker Past Alcohol Use History: Occasional Past Drug Use History: None Reported - Past Family History Mother Family Medical History: Cancer General Exam Limitations: no limitations General appearance: alert, in no apparent distress Head exam: Present: normocephalic Eye exam: Present: normal appearance Neck exam: Present: normal inspection Respiratory exam: Present: decreased breath sounds (Bilateral bases) Cardiovascular Exam: Present: tachycardia, irregular rhythm Expanded Peripheral pulses: 2+: Radial (R), Radial (L), Posterior Tibialis (R), Posterior Tibialis (L) GI/Abdominal exam: Present: soft. Absent: tenderness Extremities exam: Present: pedal edema (+1 bilateral). Absent: calf tenderness Neurological exam: Present: alert Psychiatric exam: Present: normal affect, normal mood Skin exam: Present: normal color Course Vital Signs 03/13/20 03/13/20 03/13/20 14:05 14:17 14:30 Temperature 98.0 F Pulse Rate 115 H 115 H 93 Respiratory 24 31 H 22 Rate Blood Pressure 116/86 109/94 O2 Sat by Pulse 95 91 L 95 Oximetry EKG Findings - EKG Comments: EKG Findings:: A. fib with rate of 101. QRS 146. QT 372. QTC 482. Left axis. Left bundle branch block. No acute ST change. Medical Decision Making - Lab Data Result diagrams: 03/13/20 14:36 03/13/20 14:36 Lab Results 03/13/20 03/13/20 03/13/20 Range/Units 14:36 14:36 14:36 WBC 7.5 (3.8-10.6) k/uL RBC 4.90 (4.30-5.90) m/uL Hgb 15.1 (13.0-17.5) gm/dL Hct 46.3 (39.0-53.0) % MCV 94.5 (80.0-100.0) fL MCH 30.9 (25.0-35.0) pg MCHC 32.7 (31.0-37.0) g/dL RDW 15.6 H (11.5-15.5) % Plt Count 190 (150-450) k/uL Neutrophils % 77 % Lymphocytes % 11 % Monocytes % 7 % Eosinophils % 1 % Basophils % 1 % Neutrophils # 5.8 (1.3-7.7) k/uL Lymphocytes # 0.8 L (1.0-4.8) k/uL Monocytes # 0.6 (0-1.0) k/uL Eosinophils # 0.1 (0-0.7) k/uL Basophils # 0.1 (0-0.2) k/uL PT 39.7 H (9.0-12.0) sec INR 4.0 H (<1.2) APTT 38.2 H (22.0-30.0) sec Sodium 138 (137-145) mmol/L Potassium 4.2 (3.5-5.1) mmol/L Chloride 106 (98-107) mmol/L Carbon Dioxide 24 (22-30) mmol/L Anion Gap 8 mmol/L BUN 37 H (9-20) mg/dL Creatinine 1.20 (0.66-1.25) mg/dL Est GFR (CKD-EPI)AfAm 65 (>60 ml/min/1.73 sqM) Est GFR (CKD-EPI)NonAf 57 (>60 ml/min/1.73 sqM) Glucose 106 H (74-99) mg/dL Calcium 8.8 (8.4-10.2) mg/dL Magnesium 2.4 H (1.6-2.3) mg/dL Total Bilirubin 1.2 (0.2-1.3) mg/dL AST 35 (17-59) U/L ALT 44 (4-49) U/L Alkaline Phosphatase 64 (38-126) U/L Total Protein 5.9 L (6.3-8.2) g/dL Albumin 3.6 (3.5-5.0) g/dL - Radiology Data Radiology results: image reviewed (Chest x-ray shows evidence of heart failure. pleural fluid increased.) Critical Care Time Critical Care Time: Yes Total Critical Care Time: 33 Disposition Clinical Impression: Congestive heart failure, Atrial fibrillation with RVR Disposition: ADMITTED IP TO THIS HOSP Condition: Serious Is patient prescribed a controlled substance at d/c from ED?: No Referrals: [facility],Clinic [Primary Care Provider] - 1-2 days Decision Time: 15:08
[2020-03-13] MEDS ORDERED: DILTIAZEM 125 MG in SODIUM CHLORIDE 0.9% 100 ML IV SCH (14:45)
[2020-03-13 14:47] LABS: Basophils # (A) 0.1 k/uL (0-0.2); Basophils % (A) 1 %; Eosinophils # (A) 0.1 k/uL (0-0.7); Eosinophils % (A) 1 %; HCT 46.3 % (39.0-53.0); HGB 15.1 gm/dL (13.0-17.5); Lymphocytes # (A) 0.8 k/uL (1.0-4.8); Lymphocytes % (A) 11 %; MCH 30.9 pg (25.0-35.0); MCHC 32.7 g/dL (31.0-37.0); MCV 94.5 fL (80.0-100.0); Mean Platelet Volume 7.9; Monocytes # (A) 0.6 k/uL (0-1.0); Monocytes % (A) 7 %; Neutrophils # (A) 5.8 k/uL (1.3-7.7); Neutrophils % (A) 77 %; Platelet Count 190 k/uL (150-450); RDW 15.6 % (11.5-15.5); WBC 7.5 k/uL (3.8-10.6)
--- NOTE | 2020-03-13 14:50 | XR ---
EXAMINATION TYPE: XR chest 2V DATE OF EXAM: 03/13/2020 COMPARISON: 02/03/2020 HISTORY: Dysrhythmia TECHNIQUE: FINDINGS: Heart is slightly enlarged. There is pulmonary interstitial edema. There is slight blunting of the costophrenic angles. There are sternal wires. IMPRESSION: There is evidence for mild heart failure that is increased compared to old exam. Pleural fluid increased.
[2020-03-13 14:55] LABS: Partial Thromboplastin Time 38.2 sec (22.0-30.0); Prothrombin Time 39.7 sec (9.0-12.0)
[2020-03-13] MEDS ORDERED: FUROSEMIDE 10 MG/ML 4 ML VIAL IV STA (14:55)
[2020-03-13 14:56] LABS: Albumin 3.6 g/dL (3.5-5.0); Calcium 8.8 mg/dL (8.4-10.2); Magnesium 2.4 mg/dL (1.6-2.3); Potassium 4.2 mmol/L (3.5-5.1); Total Bilirubin 1.2 mg/dL (0.2-1.3); Total Protein 5.9 g/dL (6.3-8.2)
[2020-03-13 15:12] LABS: T4, Free (Free Thyroxine) 1.97 ng/dL (0.78-2.19)
[2020-03-13] MEDS: NITROGLYCERIN OINT 1 INCH/GM PACKET TOPICAL SCH ×2 (18:26→22:30)
[2020-03-13] MEDS: METOPROLOL TARTRATE 50 MG TAB PO SCH (22:35)
[2020-03-13 23:12] LABS: INR 3.8 (<1.2); Prothrombin Time 37.3 sec (9.0-12.0)
[2020-03-14] MEDS: FUROSEMIDE 10 MG/ML 4 ML VIAL IV SCH ×4 (01:36→23:55)
--- NOTE | 2020-03-14 08:51 | P.HPIM ---
History of Present Illness This is a pleasant 79 years old female with past medical history of atrial fibrillation on warfarin, hyperlipidemia, hypertension Vitals are stable. She is tachypneic with respiratory rate 22. CBC is unremarkable, INR is 4.0 3.8. BMP and liver enzymes are unremarkable. Troponins 3 are negative, proBNP is 4120, thyroid function tests is within normal limits. Chest x-ray: Showing increased heart failure compared to old exam. EKG showing atrial fibrillation's with RVR at 101 Acute on diastolic chronic congestive heart failure. Ejection fraction from 2018 is 50-55% Hypertension Hyperlipidemia Chronic atrial fibrillation on warfarin and emergency room patient was started on Lasix 40 mg 3 times a day, also she was started on amiodarone and metoprolol 50 mg by mouth 3 times a day. This is a pleasant 79 years old female who presents with acute CHF. Continue with diuretics. Cardiology consult. Monitor renal function and electrolytes. Daily weight and monitor input and output Labs and medication were reviewed.. Continue same treatment. Continue with symptomatic treatment. Resume home medication. Monitor lytes and vitals. DVT and GI prophylaxis. Further recommendations of the clinical course of the oscar miles DVT prophylaxis Warfarin GI Prophylaxis: Pepcid Prognosis is guarded Review of Systems CONSTITUTIONAL: No fever, no malaise, no fatigue. HEENT: No recent visual problems or hearing problems. Denied any sore throat. CARDIOVASCULAR: No orthopnea, PND, no palpitations, no syncope. PULMONARY: No shortness of breath, no cough, no hemoptysis. GASTROINTESTINAL: No diarrhea, no nausea, no vomiting, no abdominal pain. Normoactive bowel sounds. NEUROLOGICAL: No headaches, no weakness, no numbness. HEMATOLOGICAL: Denies any bleeding or petechiae. GENITOURINARY: Denies any burning micturition, frequency, or urgency. MUSCULOSKELETAL/RHEUMATOLOGICAL: Denies any joint pain, swelling, or any muscle pain. ENDOCRINE: Denies any polyuria or polydipsia. Past Medical History Past Medical History: Atrial Fibrillation, Hyperlipidemia, Hypertension Additional Past Medical History / Comment(s): . History of Any Multi-Drug Resistant Organisms: None Reported Past Surgical History: Cardiac Valve Replacement, Heart Catheterization Additional Past Surgical History / Comment(s): colonoscopy, AVR WITH ANEURYSMORRHAPHY 03/08/[address] ARVIZU. Past Anesthesia/Blood Transfusion Reactions: No Reported Reaction Past Psychological History: No Psychological Hx Reported Smoking Status: Former smoker Past Alcohol Use History: Occasional Past Drug Use History: None Reported - Past Family History Mother Family Medical History: Cancer Medications and Allergies Home Medications Medication Instructions Recorded Confirmed Type Metoprolol Tartrate [Lopressor] 50 mg PO TID 02/20/17 03/13/20 History lisinopriL [Zestril] 5 mg PO DAILY #30 tablet 02/23/17 03/13/20 Rx Amiodarone [Cordarone] 200 mg PO BID 02/03/20 03/13/20 History Furosemide [Lasix] 40 mg PO BID@0900,1600 02/03/20 03/13/20 History Warfarin [Coumadin] 7.5 mg PO SUTUWETHSA@2100 02/03/20 03/13/20 History Warfarin [Coumadin] 5 mg PO MOFR@2100 03/13/20 03/13/20 History Allergies Allergy/AdvReac Type Severity Reaction Status Date / Time No Known Allergies Allergy Verified 03/13/20 15:02 Physical Exam Vitals: Vital Signs Temp Pulse Pulse Pulse Resp BP BP 03/14/20 08:14 98.1 F 77 18 113/72 03/14/20 05:35 97.5 F L 74 22 110/76 03/14/20 01:40 57 L 25 H 105/70 03/14/20 01:09 26 H 102/76 03/13/20 23:50 26 H 92/73 03/13/20 22:25 97.5 F L 83 24 113/73 03/13/20 15:32 97.9 F 97 18 106/70 03/13/20 15:30 98.0 F 93 22 125/91 03/13/20 14:30 93 22 109/94 03/13/20 14:17 115 H 31 H 03/13/20 14:05 98.0 F 115 H 24 116/86 Pulse Ox 03/14/20 08:14 94 L 03/14/20 05:35 96 03/14/20 01:40 95 03/14/20 01:09 97 03/13/20 23:50 94 L 03/13/20 22:25 94 L 03/13/20 15:32 97 03/13/20 15:30 95 03/13/20 14:30 95 03/13/20 14:17 91 L 03/13/20 14:05 95 Intake and Output 03/13/20 03/14/20 03/14/20 22:59 06:59 14:59 Intake Total 372 Output Total 1600 1750 Balance -1228 -1750 Intake: Oral 372 Output: Urine 1600 1750 Other: Voiding Method Toilet Toilet # Voids 2 4 Weight 92.986 kg GENERAL: The patient is alert and oriented x3, not in any acute distress. Well developed, well nourished. HEENT: Pupils are round and equally reacting to light. EOMI. No scleral icterus. No conjunctival pallor. Normocephalic, atraumatic. No pharyngeal erythema. No thyromegaly. CARDIOVASCULAR: S1 and S2 present. No murmurs, rubs, or gallops. PULMONARY: Chest is clear to auscultation, no wheezing or crackles. ABDOMEN: Soft, nontender, nondistended, normoactive bowel sounds. No palpable organomegaly. MUSCULOSKELETAL: No joint swelling or deformity. EXTREMITIES: No cyanosis, clubbing, or pedal edema. NEUROLOGICAL: Gross neurological examination did not reveal any focal deficits. SKIN: No rashes. No petechiae Results CBC & Chem 7: 03/13/20 14:36 03/13/20 14:36 Labs: Abnormal Lab Results - Last 24 Hours (Table) 03/13/20 03/13/20 03/13/20 Range/Units 14:36 14:36 14:36 RDW 15.6 H (11.5-15.5) % Lymphocytes # 0.8 L (1.0-4.8) k/uL PT 39.7 H (9.0-12.0) sec INR 4.0 H (<1.2) APTT 38.2 H (22.0-30.0) sec BUN 37 H (9-20) mg/dL Glucose 106 H (74-99) mg/dL Magnesium 2.4 H (1.6-2.3) mg/dL Total Protein 5.9 L (6.3-8.2) g/dL 03/13/20 Range/Units 22:28 RDW (11.5-15.5) % Lymphocytes # (1.0-4.8) k/uL PT 37.3 H (9.0-12.0) sec INR 3.8 H (<1.2) APTT (22.0-30.0) sec BUN (9-20) mg/dL Glucose (74-99) mg/dL Magnesium (1.6-2.3) mg/dL Total Protein (6.3-8.2) g/dL
[2020-03-14] MEDS ORDERED: FAMOTIDINE 20 MG/2 ML VIAL IV SCH (09:00)
[2020-03-14] MEDS: METOPROLOL TARTRATE 50 MG TAB PO SCH ×3 (09:29→20:56)
[2020-03-14] MEDS: AMIODARONE 200 MG TAB PO SCH ×2 (09:30→20:56)
[2020-03-14] MEDS: lisinopriL 5 MG TAB PO SCH (09:30)
--- NOTE | 2020-03-14 09:49 | P.HPIM ---
History of Present Illness This is a pleasant 79 years old female with past medical history of atrial fibrillation on warfarin, hyperlipidemia, hypertension. Patient went to see his inventory control specialist Dr. aFlk about 3-4 days ago for he has been dyspneic for about 2 weeks without chest pain. He is been told that he has high heart rate without amended pills and Dr. Falk put him on amiodarone twice daily and metoprolol 3 times a day for 10 days however this today patient became more dyspneic and he decided to come to the hospital. He denies chest pain, he has little cough with little lump. His legs are quite swollen but he denies pain. No problem in his bowel or urine He denies smoking, drinks alcohol occasionally and no illicit drugs. Vitals are stable. She is tachypneic with respiratory rate 22. CBC is unremarkable, INR is 4.0 3.8. BMP and liver enzymes are unremarkable. Troponins 3 are negative, proBNP is 4120, thyroid function tests is within normal limits. Chest x-ray: Showing increased heart failure compared to old exam. EKG showing atrial fibrillation's with RVR at 101 in emergency room patient was started on Lasix 40 mg 3 times a day, also she was started on amiodarone and metoprolol 50 mg by mouth 3 times a day. Review of Systems CONSTITUTIONAL: No fever, no malaise, no fatigue. HEENT: No recent visual problems or hearing problems. Denied any sore throat. CARDIOVASCULAR: No orthopnea, PND, no palpitations, no syncope. PULMONARY: no hemoptysis. GASTROINTESTINAL: No diarrhea, no nausea, no vomiting, no abdominal pain. Normoactive bowel sounds. NEUROLOGICAL: No headaches, no weakness, no numbness. HEMATOLOGICAL: Denies any bleeding or petechiae. GENITOURINARY: Denies any burning micturition, frequency, or urgency. MUSCULOSKELETAL/RHEUMATOLOGICAL: Denies any joint pain, swelling, or any muscle pain. ENDOCRINE: Denies any polyuria or polydipsia. Past Medical History Past Medical History: Atrial Fibrillation, Hyperlipidemia, Hypertension Additional Past Medical History / Comment(s): . History of Any Multi-Drug Resistant Organisms: None Reported Past Surgical History: Cardiac Valve Replacement, Heart Catheterization Additional Past Surgical History / Comment(s): colonoscopy, AVR WITH ANEURYSMORRHAPHY 03/08/[address] ARVIZU. Past Anesthesia/Blood Transfusion Reactions: No Reported Reaction Past Psychological History: No Psychological Hx Reported Smoking Status: Former smoker Past Alcohol Use History: Occasional Past Drug Use History: None Reported - Past Family History Mother Family Medical History: Cancer Medications and Allergies Home Medications Medication Instructions Recorded Confirmed Type Metoprolol Tartrate [Lopressor] 50 mg PO TID 02/20/17 03/13/20 History lisinopriL [Zestril] 5 mg PO DAILY #30 tablet 02/23/17 03/13/20 Rx Amiodarone [Cordarone] 200 mg PO BID 02/03/20 03/13/20 History Furosemide [Lasix] 40 mg PO BID@0900,1600 02/03/20 03/13/20 History Warfarin [Coumadin] 7.5 mg PO SUTUWETHSA@2100 02/03/20 03/13/20 History Warfarin [Coumadin] 5 mg PO MOFR@2100 03/13/20 03/13/20 History Allergies Allergy/AdvReac Type Severity Reaction Status Date / Time No Known Allergies Allergy Verified 03/13/20 15:02 Physical Exam Vitals: Vital Signs Temp Pulse Pulse Pulse Resp BP BP 03/14/20 08:14 98.1 F 77 18 113/72 03/14/20 05:35 97.5 F L 74 22 110/76 03/14/20 01:40 57 L 25 H 105/70 03/14/20 01:09 26 H 102/76 03/13/20 23:50 26 H 92/73 03/13/20 22:25 97.5 F L 83 24 113/73 03/13/20 15:32 97.9 F 97 18 106/70 03/13/20 15:30 98.0 F 93 22 125/91 03/13/20 14:30 93 22 109/94 03/13/20 14:17 115 H 31 H 03/13/20 14:05 98.0 F 115 H 24 116/86 Pulse Ox 03/14/20 08:14 94 L 03/14/20 05:35 96 03/14/20 01:40 95 03/14/20 01:09 97 03/13/20 23:50 94 L 03/13/20 22:25 94 L 03/13/20 15:32 97 03/13/20 15:30 95 03/13/20 14:30 95 03/13/20 14:17 91 L 03/13/20 14:05 95 Intake and Output 03/13/20 03/14/20 03/14/20 22:59 06:59 14:59 Intake Total 372 Output Total 1600 1750 Balance -1228 -1750 Intake: Oral 372 Output: Urine 1600 1750 Other: Voiding Method Toilet Toilet # Voids 2 4 Weight 92.986 kg GENERAL: The patient is alert and oriented x3, not in any acute distress. Well developed, well nourished. HEENT: Pupils are round and equally reacting to light. EOMI. No scleral icterus. No conjunctival pallor. Normocephalic, atraumatic. No pharyngeal erythema. No thyromegaly. CARDIOVASCULAR: S1 and S2 present. No murmurs, rubs, or gallops. -PULMONARY: Chest is clear to auscultation, no wheezing. Bilateral basal crepitation. ABDOMEN: Soft, nontender, nondistended, normoactive bowel sounds. No palpable organomegaly. MUSCULOSKELETAL: No joint swelling or deformity. -EXTREMITIES: No cyanosis, clubbing, 2+ bilateral leg swelling, pain NEUROLOGICAL: Gross neurological examination did not reveal any focal deficits. SKIN: No rashes. no petechiae. Results CBC & Chem 7: 03/13/20 14:36 03/13/20 14:36 Labs: Abnormal Lab Results - Last 24 Hours (Table) 03/13/20 03/13/20 03/13/20 Range/Units 14:36 14:36 14:36 RDW 15.6 H (11.5-15.5) % Lymphocytes # 0.8 L (1.0-4.8) k/uL PT 39.7 H (9.0-12.0) sec INR 4.0 H (<1.2) APTT 38.2 H (22.0-30.0) sec BUN 37 H (9-20) mg/dL Glucose 106 H (74-99) mg/dL Magnesium 2.4 H (1.6-2.3) mg/dL Total Protein 5.9 L (6.3-8.2) g/dL 03/13/20 Range/Units 22:28 RDW (11.5-15.5) % Lymphocytes # (1.0-4.8) k/uL PT 37.3 H (9.0-12.0) sec INR 3.8 H (<1.2) APTT (22.0-30.0) sec BUN (9-20) mg/dL Glucose (74-99) mg/dL Magnesium (1.6-2.3) mg/dL Total Protein (6.3-8.2) g/dL Assessment and Plan Assessment: Acute on diastolic chronic congestive heart failure. Ejection fraction from 2018 is 50-55% Acute on chronic atrial fibrillation, on warfarin Hypertension Hyperlipidemia Plan: This is a pleasant 79 years old male who presents with acute CHF and A. fib with RVR. Continue with diuretics. Cardiology consult. Monitor renal function and electrolytes. Daily weight and monitor input and output. Continue with amiodarone and metoprolol as per cardiology recommendation Labs and medication were reviewed.. Continue same treatment. Continue with symptomatic treatment. Resume home medication. Monitor lytes and vitals. DVT and GI prophylaxis. Further recommendations of the clinical course of the patient DVT prophylaxis Warfarin GI Prophylaxis: Pepcid Prognosis is guarded
--- NOTE | 2020-03-14 11:02 | ECHOF ---
Referral Reason:chf MEASUREMENTS -------- HEIGHT: 177.8 cm WEIGHT: 93.0 kg BP: 113/72 RVIDd: 6.9 cm (< 3.3) IVSd: 2.0 cm (0.6 - 1.1) LVIDd: 5.7 cm (3.9 - 5.3) LVPWd: 1.1 cm (0.6 - 1.1) IVSs: 2.4 cm LVIDs: 3.2 cm LVPWs: 1.9 cm LAESV Index (A-L): 60.86 ml/m Ao Diam: 3.6 cm (2.0 - 3.7) AV Cusp: 2.2 cm (1.5 - 2.6) MV EXCURSION: 18.072 mm (> 18.000) MV EF SLOPE: 98 mm/s (70 - 150) EPSS: 0.8 cm AV maxP.66 mmHg AV meanP.38 mmHg RAP: 5.00 mmHg RVSP: 80.43 mmHg FINDINGS -------- Atrial fibrillation. This was a technically difficult study with suboptimal views. The left ventricular size is normal. There is moderate concentric left ventricular hypertrophy. O verall left ventricular systolic function is low-normal with, an EF between 50 - 55 %. Septal wall motion is delayed and consistent with prior cardiac surgery. The right ventricle is severely enlarged. LA is severely dilated >40 ml/m2 The right atrium is markedly enlarged. 5.0mg of Lumason was utilized for enhancement of images Interatrial and interventricular septum intact. Peak/mean gradient across the Aortic Valve is 19.66mmHg / 12.38mmHg. Normally functioning bioprosth etic valve. Moderate mitral annular calcification present. Ympenjbi-ub-rbgful mitral regurgitation is present. Severe tricuspid regurgitation present. There is severe pulmonary hypertension. The right ventric ular systolic pressure, as measured by Doppler, is 80.43mmHg. There is no pulmonic regurgitation present. 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 IVC Not well visulized. There is no pericardial effusion. CONCLUSIONS -------- 1. There is moderate concentric left ventricular hypertrophy. 2. Overall left ventricular systolic function is low-normal with, an EF between 50 - 55 %. 3. Septal wall motion is delayed and consistent with prior cardiac surgery. 4. The right ventricle is severely enlarged. 5. LA is severely dilated >40 ml/m2 6. The right atrium is markedly enlarged. 7. Peak/mean gradient across the Aortic Valve is 19.66mmHg / 12.38mmHg. 8. Normally functioning bioprosthetic valve. 9. Moderate mitral annular calcification present. 10. Mavtyxyp-qr-ayyapo mitral regurgitation is present. 11. Severe tricuspid regurgitation present. 12. There is severe pulmonary hypertension. 13. 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 FINANCIAL SERVICES AGENT: Nusrat Adorno RDCS
--- NOTE | 2020-03-14 11:21 | P.CRDCN ---
History of Present Illness Consult date: 03/14/20 Requesting physician: Fabian Crain Reason for Consult (text): CHF, Afib Chief complaint: shortness of breath, edema History of present illness: This is a pleasant 79-year-old gentleman who follows with Dr. MARK Jean in the office. 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 He was seen in the office a few days ago by Dr. Jean with complaints of shortness of breath. At that time he was found to be in atrial fibrillation and his home dose of amiodarone and the beta yoselyn were increased. He was scheduled to follow up and about 10 days. Since that time he has been progressively becoming more short of breath with worsening lower extremity edema, orthopnea and PND. Upon presentation EKG showed atrial fibrillation with a poorly controlled ventricular rate. NT proBNP was elevated at 4120. Most recent available echocardiogram from 2019 showed normal always systolic function with normal function of the prosthetic aortic valve. He was initiated on a Cardizem drip and started on IV Lasix. Continues to complain of shortness of breath. Also complains of lower extremity edema which is significantly worse from his baseline. Past Medical History Past Medical History: Atrial Fibrillation, Hyperlipidemia, Hypertension Additional Past Medical History / Comment(s): . History of Any Multi-Drug Resistant Organisms: None Reported Past Surgical History: Cardiac Valve Replacement, Heart Catheterization Additional Past Surgical History / Comment(s): colonoscopy, AVR WITH ANEURYSMORRHAPHY 03/08/[address] ARVIZU. Past Anesthesia/Blood Transfusion Reactions: No Reported Reaction Past Psychological History: No Psychological Hx Reported Smoking Status: Former smoker Past Alcohol Use History: Occasional Past Drug Use History: None Reported - Past Family History Mother Family Medical History: Cancer Medications and Allergies Home Medications Medication Instructions Recorded Confirmed Type Metoprolol Tartrate [Lopressor] 50 mg PO TID 02/20/17 03/13/20 History lisinopriL [Zestril] 5 mg PO DAILY #30 tablet 02/23/17 03/13/20 Rx Amiodarone [Cordarone] 200 mg PO BID 02/03/20 03/13/20 History Furosemide [Lasix] 40 mg PO BID@0900,1600 02/03/20 03/13/20 History Warfarin [Coumadin] 7.5 mg PO SUTUWETHSA@209902/03/20 03/13/20 History Warfarin [Coumadin] 5 mg PO MOFR@209903/13/20 03/13/20 History Allergies Allergy/AdvReac Type Severity Reaction Status Date / Time No Known Allergies Allergy Verified 03/13/20 15:02 Physical Exam Vitals: Vital Signs Temp Pulse Pulse Pulse Resp BP BP 03/14/20 08:14 98.1 F 77 18 113/72 03/14/20 05:35 97.5 F L 74 22 110/76 03/14/20 01:40 57 L 25 H 105/70 03/14/20 01:09 26 H 102/76 03/13/20 23:50 26 H 92/73 03/13/20 22:25 97.5 F L 83 24 113/73 03/13/20 15:32 97.9 F 97 18 106/70 03/13/20 15:30 98.0 F 93 22 125/91 03/13/20 14:30 93 22 109/94 03/13/20 14:17 115 H 31 H 03/13/20 14:05 98.0 F 115 H 24 116/86 Pulse Ox 03/14/20 08:14 94 L 03/14/20 05:35 96 03/14/20 01:40 95 03/14/20 01:09 97 03/13/20 23:50 94 L 03/13/20 22:25 94 L 03/13/20 15:32 97 03/13/20 15:30 95 03/13/20 14:30 95 03/13/20 14:17 91 L 03/13/20 14:05 95 Intake and Output 03/13/20 03/14/20 03/14/20 22:59 06:59 14:59 Intake Total 372 Output Total 1600 1750 Balance -1228 -1750 Intake: Oral 372 Output: Urine 1600 1750 Other: Voiding Method Toilet Toilet # Voids 2 4 Weight 92.986 kg PHYSICAL EXAMINATION: This is a 79-year-old male in no apparent distress at the time of my examination. VITAL SIGNS: Blood pressure 113/72, heart rate 77, respirations 18, temp 98.1F. Patient is 94 % on liters. HEENT: Head is atraumatic, normocephalic. Pupils are equal, round. Sclerae anicteric. Conjunctivae are clear. Mucous membranes of the mouth are moist. Neck is supple. There is elevated jugular venous pressure. No carotid bruit is heard. CHEST EXAMINATION: Lungs reveal crackles to bilateral lower lobes. No wheezes or rhonchi. Respirations even and nonlabored. HEART EXAMINATION: Heart irregularly irregular, positive S1 and S2 with a systolic murmur. ABDOMEN: Soft, nontender. Bowel sounds are heard. No organomegaly noted. EXTREMITIES: 2+ peripheral pulses with evidence of 1-2+ pitting peripheral edema and no calf tenderness noted. NEUROLOGIC EXAMINATION: Patient is awake, alert and oriented x3. Results 03/13/20 14:36 03/13/20 14:36 Cardiac Enzymes 03/13/20 03/13/20 03/13/20 Range/Units 14:36 14:36 15:48 AST 35 (17-59) U/L Troponin I <0.012 <0.012 (0.000-0.034) ng/mL 03/13/20 Range/Units 18:21 AST (17-59) U/L Troponin I 0.012 (0.000-0.034) ng/mL Coagulation 03/13/20 03/13/20 Range/Units 14:36 22:28 PT 39.7 H 37.3 H (9.0-12.0) sec APTT 38.2 H (22.0-30.0) sec CBC 03/13/20 Range/Units 14:36 WBC 7.5 (3.8-10.6) k/uL RBC 4.90 (4.30-5.90) m/uL Hgb 15.1 (13.0-17.5) gm/dL Hct 46.3 (39.0-53.0) % Plt Count 190 (150-450) k/uL Comprehensive Metabolic Panel 03/13/20 Range/Units 14:36 Sodium 138 (137-145) mmol/L Potassium 4.2 (3.5-5.1) mmol/L Chloride 106 (98-107) mmol/L Carbon Dioxide 24 (22-30) mmol/L BUN 37 H (9-20) mg/dL Creatinine 1.20 (0.66-1.25) mg/dL Glucose 106 H (74-99) mg/dL Calcium 8.8 (8.4-10.2) mg/dL AST 35 (17-59) U/L ALT 44 (4-49) U/L Alkaline Phosphatase 64 (38-126) U/L Total Protein 5.9 L (6.3-8.2) g/dL Albumin 3.6 (3.5-5.0) g/dL Current Medications Generic Name Dose Route Start Last Admin Trade Name Freq PRN Reason Stop Dose Admin Furosemide 40 mg 03/14/20 00:00 03/14/20 01:36 Lasix IV 40 mg Q8HR [facility] Administration Diltiazem HCl 125 mg/ Sodium 125 mls @ 5 mls/hr 03/13/20 14:45 03/13/20 14:54 Chloride IV 5 mg/hr .Q24H [facility]IER 5 mls/hr Administration 5 MG/HR Lisinopril 5 mg 03/14/20 09:00 Zestril PO DAILY [facility] Metoprolol Tartrate 50 mg 03/13/20 22:00 03/13/20 22:35 Lopressor PO 50 mg TID [facility] Administration Nitroglycerin 1 inch 03/13/20 18:00 03/13/20 22:30 Nitro-Bid Oint TOPICAL Not Given QID [facility] Sodium Chloride 10 ml 03/13/20 21:00 03/13/20 22:35 Saline Flush IV 10 ml BID [facility] Administration Warfarin Sodium 5 mg 03/14/20 21:00 Coumadin PO MOFR@2100 [facility] Protocol Warfarin Sodium 7.5 mg 03/15/20 21:00 Coumadin PO SUTUWETHSA@2100 [facility] Protocol Intake and Output 03/13/20 03/14/20 03/14/20 22:59 06:59 14:59 Intake Total 372 Output Total 1600 1750 Balance -1228 -1750 Intake: Oral 372 Output: Urine 1600 1750 Other: Voiding Method Toilet Toilet # Voids 2 4 Weight 92.986 kg 03/13/20 14:36 03/13/20 14:36 Assessment and Plan Assessment: #1 acute on chronic congestive heart failure, likely diastolic #2 persistent atrial fibrillation, symptomatic #3 prior aortic valve replacement with normal function on echocardiogram done last year #4 hypertension #5 hyperlipidemia Plan: From cardiology perspective we will obtain a 2-D echo with Doppler to assess cardiac structure and function and we will discontinue IV Cardizem. Resume amiodarone 200 mg by mouth twice a day. Continue with diuresis. Continue to follow renal function, electrolytes, daily weights as well as intake and output. We will keep the patient NPO after midnight tonight and tentatively schedule for cardioversion with Dr. MARK jean. Further recommendations to follow. BRICKLAYER APPRENTICE note has been reviewed, I agree with a documented findings and plan of care. Patient was seen and examined.
[2020-03-14 11:38] VITALS: BMI 29.4
[2020-03-14] MEDS: SODIUM CHLORIDE 0.9% 1,000 ML IV SCH (16:14)
[2020-03-14] MEDS: MELATONIN 5 MG TABLET PO PRN (20:56)
[2020-03-14] MEDS ORDERED: WARFARIN 5 MG TAB PO SCH (21:00)
[2020-03-15 06:45] LABS: INR 2.9 (<1.2); Prothrombin Time 27.9 sec (9.0-12.0)
[2020-03-15 06:53] LABS: Calcium 8.6 mg/dL (8.4-10.2); Magnesium 2.2 mg/dL (1.6-2.3); Potassium 3.9 mmol/L (3.5-5.1)
[2020-03-15] MEDS: AMIODARONE 200 MG TAB PO SCH ×2 (08:40→20:13)
[2020-03-15] MEDS: FAMOTIDINE 20 MG TAB PO SCH (08:40)
[2020-03-15] MEDS: METOPROLOL TARTRATE 50 MG TAB PO SCH ×3 (08:40→20:12)
[2020-03-15] MEDS: FUROSEMIDE 10 MG/ML 4 ML VIAL IV SCH (08:40)
--- NOTE | 2020-03-15 10:11 | PN ---
PROGRESS NOTE Mr. Rodriguez is an 79-year-old male status post aortic valve replacement, who presented with progressive dyspnea and congestive heart failure with evidence of significant mitral and tricuspid regurgitation and atrial fibrillation. He is feeling slightly better today. His edema is better, but he continues to have dyspnea on exertion. He denies any chest pain. No dizziness. No palpitation. He continues to be on Lasix 40 mg IV q.8 hours, amiodarone 200 mg twice a day, lisinopril 5 mg daily, metoprolol tartrate 50 mg 3 times a day. PHYSICAL EXAMINATION: Blood pressure 113/80 with a heart rate in the 80s, afebrile. LUNGS: With mild crackles at the bases. HEART: Irregular, regular, S1, S2. No S3 with systolic murmur heard at the base, ejection type and a holosystolic murmur at the apex. ABDOMEN: Soft, nontender. EXTREMITIES: +2 edema. LAB DATA: Revealed BUN and creatinine 38 and 1.08, potassium 3.9. INR 2.9. IMPRESSION: 1. Atrial fibrillation recently noted with worsening dyspnea and worsening congestive heart failure. 2. History of aortic valve replacement. 3. Moderate severe mitral with severe tricuspid regurgitation and severe pulmonary hypertension. RECOMMENDATION: Patient will undergo cardioversion today to try to restore sinus mechanism and hopefully improve his overall breathing status. The procedure will be done by Dr. Trinity Falk. The rationale behind the procedures, risks, and complication were discussed with the patient, who is in full understanding and agreement. MMODL / IJN: [id number] /
[2020-03-15] MEDS: lisinopriL 5 MG TAB PO SCH (10:30)
--- NOTE | 2020-03-15 10:47 | P.PN ---
Subjective Patient is being treated for congestive heart failure chronic diastolic dysfunction with acute exacerbation came in with shortness of breath. Patient continues to have dyspnea on exertion patient is also having atrial fibrillation and does have mitral and tricuspid regurgitation. Patient is believed to have symptomatic A. fib patient's INR is therapeutic. Patient is going for a electric cardioversion today. Constitutional: Denied any fatigue denied any fever. Cardio vascular: denied any chest pain, palpitations Gastrointestinal denied any nausea vomiting Pulmonary: Does have shortness of breath cough Neurologic denied any new focal deficits All inpatient medications were reviewed and appropriate changes in these medications as dictated in the interval history and assessment and plan. Objective - Vital Signs Vital signs: Vital Signs Temp 98 F 03/15/20 10:11 Pulse 79 03/15/20 10:31 Resp 18 03/15/20 10:31 BP 101/73 03/15/20 10:31 Pulse Ox 94 L 03/15/20 10:31 Intake & Output 03/14/20 03/15/20 03/15/20 18:59 06:59 18:59 Intake Total 750 550 Output Total 2000 1200 100 Balance -1250 -650 -100 Weight 92.986 kg 96.6 kg Intake: Oral 750 550 Output: Urine 1999 1200 100 Other: Voiding Method Toilet Toilet Toilet # Voids 3 4 - Exam PHYSICAL EXAMINATION: GENERAL: The patient is alert and oriented x3, not in any acute distress. Well developed, well nourished. HEENT: Pupils are round and equally reacting to light. EOMI. No scleral icterus. No conjunctival pallor. Normocephalic, atraumatic. No pharyngeal erythema. No thyromegaly. CARDIOVASCULAR: S1 and S2 present. No rubs, or gallops. Irregularly irregular rhythm tachycardic-systolic murmur in the mitral area PULMONARY: Crackles in bilateral lower lung bases ABDOMEN: Soft, nontender, nondistended, normoactive bowel sounds. No palpable organomegaly. MUSCULOSKELETAL: No joint swelling or deformity. EXTREMITIES: No cyanosis, clubbing, or pedal edema. NEUROLOGICAL: Gross neurological examination did not reveal any focal deficits. SKIN: No rashes. - Labs CBC & Chem 7: 03/13/20 14:36 03/15/20 06:15 Labs: Abnormal Lab Results - Last 24 Hours (Table) 08/25/20 08/25/20 Range/Units 06:15 06:15 PT 27.9 H (9.0-12.0) sec INR 2.9 H (<1.2) Carbon Dioxide 32 H (22-30) mmol/L BUN 38 H (9-20) mg/dL Glucose 104 H (74-99) mg/dL Assessment and Plan Plan: -Shortness of breath on secondary to congestive heart failure chronic diastolic dysfunction with acute exacerbation patient had a normal EF in the past and also secondary to atrial fibrillation with rapid ventricular rate. Will be continued on IV Lasix and patient is going for a cardioversion today. -Possible chronic A. fib presently rapid ventricular rate on Coumadin and therapeutic on Coumadin patient will be resumed on Coumadin today patient was yesterday. Patient is going for cardioversion today -Hypertension -Hyperlipidemia -Valvular heart disease and valvular atrial fibrillation
[2020-03-15] MEDS ORDERED: FUROSEMIDE 10 MG/ML 4 ML VIAL IV STA (10:56)
[2020-03-15] MEDS ORDERED: POTASSIUM CHLORIDE ER 20 MEQ TAB.ER PO STA (10:58)
[2020-03-15] MEDS: FUROSEMIDE 100 MG in SODIUM CHLORIDE 0.9% 90 ML IV SCH ×2 (11:59→21:16)
--- NOTE | 2020-03-15 12:51 | CE ---
CARDIAC ELECTROPHYSIOLOGY REPORT DATE OF SERVICE: 03/15/2020 PROCEDURE: Electrical cardioversion. CLINICAL INFORMATION: Mr. Rinku Rodriguez is an 79-year-old gentleman with aortic valve replacement for severe aortic insufficiency, noncritical CAD with moderate pulmonary hypertension and moderate mitral regurgitation. He was doing well on medical therapy. He is known to have paroxysmal atrial fibrillation. About 2 years ago he had an episode of atrial fibrillation, underwent electrical cardioversion in [place]. About a few weeks ago, he came with shortness of breath, was in atrial fibrillation. I increased amiodarone. I was planning to do cardioversion, but he came into the hospital with worsening shortness of breath, was found to be in congestive heart failure with significant pulmonary hypertension. After optimizing his pulmonary status with adequate diuresis, he was advised electrical cardioversion. Patient was well anticoagulated and his INR was 2.9. All risks, benefits, options were discussed with the patient and family. PROCEDURE NOTE: Under ultra short-acting intravenous anesthetic agent with the attendance of the anesthesiologist, I gave a 250 joule shock with anterior and posterior patches. He converted to sinus rhythm briefly and went back into atrial fib with a somewhat slower ventricular rate. A repeat electrical cardioversion was performed. A second shock was given at 300 joules in a synchronized fashion and he converted to sinus rhythm. He remained hemodynamically stable and neurologically intact. This was a successful electrical cardioversion on the second shock. The results were discussed with the patient and I will speak to his daughter also. The patient will continue amiodarone and beta yoselyn. He will be further diuresed and hopefully discharge the next 2 days. MMODL / IJN: [id number] /
[2020-03-15] MEDS: SODIUM CHLORIDE 0.9% 1,000 ML IV SCH ×2 (17:35→20:12)
[2020-03-15] MEDS ORDERED: WARFARIN 2.5 MG TAB PO ONE (18:00)
[2020-03-15] MEDS: MELATONIN 5 MG TABLET PO PRN (20:12)
[2020-03-15] MEDS ORDERED: WARFARIN 5 MG TAB PO SCH (21:00)
[2020-03-16] MEDS: FUROSEMIDE 100 MG in SODIUM CHLORIDE 0.9% 90 ML IV SCH (03:19)
[2020-03-16 06:18] LABS: INR 2.2 (<1.2); Prothrombin Time 21.1 sec (9.0-12.0)
[2020-03-16 06:27] LABS: Calcium 8.4 mg/dL (8.4-10.2); Magnesium 2.1 mg/dL (1.6-2.3); Potassium 3.5 mmol/L (3.5-5.1)
--- NOTE | 2020-03-16 07:54 | P.PN ---
Subjective Patient is being treated for congestive heart failure chronic diastolic dysfunction with acute exacerbation came in with shortness of breath. Patient continues to have dyspnea on exertion patient is also having atrial fibrillation and does have mitral and tricuspid regurgitation. Patient is believed to have symptomatic A. fib patient's INR is therapeutic. Patient is going for a electric cardioversion today. 03/16/2020 Patient is feeling better patient is sinus rhythm at this time still has him concerned pedal edema patient is on 10 mg/h of IV Lasix today. Patient usually uses 40 mg twice a day of Lasix patient kidney function started getting worse probably can be switched to oral Lasix. Cardiology will evaluate the patient patient's INR is therapeutic and 2.2 patient will be given 3 mg of Coumadin today Constitutional: Denied any fatigue denied any fever. Cardio vascular: denied any chest pain, palpitations Gastrointestinal denied any nausea vomiting Pulmonary: Does have shortness of breath cough Neurologic denied any new focal deficits All inpatient medications were reviewed and appropriate changes in these medications as dictated in the interval history and assessment and plan. Objective - Vital Signs Vital signs: Vital Signs Temp 98.1 F 03/16/20 03:00 Pulse 59 L 03/16/20 03:00 Resp 18 03/16/20 03:00 BP 103/68 03/16/20 03:00 Pulse Ox 93 L 03/16/20 03:00 Intake & Output 03/15/20 03/16/20 03/16/20 18:59 06:59 18:59 Intake Total 710 878.333 Output Total 1100 1600 Balance -390 -721.667 Weight 95.1 kg Intake: Intake, IV Titration 210 153.333 Amount Furosemide 100 mg In 50 153.333 Sodium Chloride 0.9% 90 ml @ 10 MG/HR 10 mls/hr IV .Q10H [facility] Rx#: [id number] Sodium Chloride 0.9% 1, 160 000 ml @ 20 mls/hr IV . Q24H [facility] Rx#:[id number] Oral 500 725 Output: Urine 1100 1600 Other: Voiding Method Toilet Toilet Urinal # Voids 5 1 - Exam PHYSICAL EXAMINATION: GENERAL: The patient is alert and oriented x3, not in any acute distress. Well developed, well nourished. HEENT: Pupils are round and equally reacting to light. EOMI. No scleral icterus. No conjunctival pallor. Normocephalic, atraumatic. No pharyngeal erythema. No thyromegaly. CARDIOVASCULAR: S1 and S2 present. No rubs, or gallops. Irregularly irregular rhythm tachycardic-systolic murmur in the mitral area PULMONARY: Crackles in bilateral lower lung bases ABDOMEN: Soft, nontender, nondistended, normoactive bowel sounds. No palpable organomegaly. MUSCULOSKELETAL: No joint swelling or deformity. EXTREMITIES: No cyanosis, clubbing, bilateral lower extremity edema 2+ predominantly nonpitting NEUROLOGICAL: Gross neurological examination did not reveal any focal deficits. SKIN: No rashes. - Labs CBC & Chem 7: 03/13/20 14:36 03/16/20 05:52 Labs: Abnormal Lab Results - Last 24 Hours (Table) 03/16/20 03/16/20 Range/Units 05:52 05:52 PT 21.1 H (9.0-12.0) sec INR 2.2 H (<1.2) Carbon Dioxide 32 H (22-30) mmol/L BUN 40 H (9-20) mg/dL Creatinine 1.29 H (0.66-1.25) mg/dL Glucose 100 H (74-99) mg/dL Assessment and Plan Plan: -Shortness of breath on secondary to congestive heart failure chronic diastolic dysfunction with acute exacerbation patient had a normal EF in the past and also secondary to atrial fibrillation with rapid ventricular rate. Will be continued on IV Lasix drip, mild worsening of serum creatinine probably will be switched to oral Lasix patient had a cardioversion yesterday patient is presently sinus rhythm -Possible chronic A. fib presently sinus rhythm. Patient is on amiodarone which will be continued rapid ventricular rate on Coumadin and therapeutic on Coumadin p -Hypertension -Hyperlipidemia -Valvular heart disease and valvular atrial fibrillation
[2020-03-16] MEDS: METOPROLOL TARTRATE 50 MG TAB PO SCH ×2 (09:13→15:30)
[2020-03-16] MEDS: lisinopriL 5 MG TAB PO SCH (09:13)
[2020-03-16] MEDS: FAMOTIDINE 20 MG TAB PO SCH (09:13)
[2020-03-16] MEDS: AMIODARONE 200 MG TAB PO SCH ×3 (09:13→21:53)
--- NOTE | 2020-03-16 11:07 | P.PN ---
Subjective Progress Note Date: 03/16/20 This is a pleasant 79-year-old gentleman who follows with Dr. MARK Falk in the office. 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 He was seen in the office a few days ago by Dr. Falk with complaints of shortness of breath. At that time he was found to be in atrial fibrillation and his home dose of amiodarone and the beta yoselyn were increased. He was scheduled to follow up and about 10 days. Since that time he has been progressively becoming more short of breath with worsening lower extremity edema, orthopnea and PND. Upon presentation EKG showed atrial fibrillation with a poorly controlled ventricular rate. NT proBNP was elevated at 4120. Most recent available echocardiogram from 2018 showed normal always systolic function with normal function of the prosthetic aortic valve. He was initiated on a Cardizem drip and started on IV Lasix. Continues to complain of shortness of breath. Also complains of lower extremity edema which is significantly worse from his baseline. 03/16/2020 the patient was seen and examined this morning resting comfortably in a recliner at the bedside. echocardiogram done this admission shows low normal LV systolic function with ejection fraction between 50-55%, severely enlarged RV, severely dilated LA and markedly enlarged RA, normally functioning bioprosthetic aortic valve, moderate to severe mitral regurgitation, severe tricuspid regurgitation and severe pulmonary hypertension with an RVSP of 80.43 mmHg. He underwent cardioversion by Dr. MARK Falk yesterday. He has been on a Lasix drip at 10 mg an hour. He continues to have significant edema and areas of shortness of breath. Continues to have complaints of orthopnea. according to the documented weights he has lost 1.5 kg since yesterday. his vital signs are stable and he is currently maintaining sinus rhythm. labs today show an INR of 2.2, BUN 40, creatinine 1.29, magnesium 2.1 and potassium of 3.5. Overall he states at times he feels better and other times he does not. Objective - Vital Signs Vital signs: Vital Signs Temp 98.0 F 03/16/20 08:42 Pulse 61 03/16/20 08:42 Resp 18 03/16/20 08:42 BP 104/67 03/16/20 08:42 Pulse Ox 94 L 03/16/20 08:42 Intake & Output 03/15/20 03/16/20 03/16/20 18:59 06:59 18:59 Intake Total 710 878.333 Output Total 1100 1600 Balance -390 -721.667 Weight 95.1 kg Intake: Intake, IV Titration 210 153.333 Amount Furosemide 100 mg In 50 153.333 Sodium Chloride 0.9% 90 ml @ 10 MG/HR 10 mls/hr IV .Q10H [facility] Rx#: [id number] Sodium Chloride 0.9% 1, 160 000 ml @ 20 mls/hr IV . Q24H [facility] Rx#:[id number] Oral 500 725 Output: Urine 1100 1600 Other: Voiding Method Toilet Toilet Toilet Urinal Urinal # Voids 5 1 - Exam PHYSICAL EXAMINATION: HEENT: Head is atraumatic, normocephalic. Pupils equal, round. Neck is supple. There is no elevated jugular venous pressure. HEART EXAMINATION: Heart sounds regular, S1 and S2 with a systolic murmur. CHEST EXAMINATION: Lungs reveal bibasilar crackles. No chest wall tenderness is noted on palpation or with deep breathing. ABDOMEN: Soft, nontender. Bowel sounds are heard. No organomegaly noted. EXTREMITIES: 2+ peripheral pulses with evidence of 2-3+ pitting right lower extremity edema and 1-2+ pitting left lower extremity edema and no calf tenderness noted. NEUROLOGIC patient is awake, alert and oriented x3. . - Labs CBC & Chem 7: 03/13/20 14:36 03/16/20 05:52 Labs: Abnormal Lab Results - Last 24 Hours (Table) 03/16/20 03/16/20 Range/Units 05:52 05:52 PT 21.1 H (9.0-12.0) sec INR 2.2 H (<1.2) Carbon Dioxide 32 H (22-30) mmol/L BUN 40 H (9-20) mg/dL Creatinine 1.29 H (0.66-1.25) mg/dL Glucose 100 H (74-99) mg/dL Assessment and Plan Assessment: #1 acute on chronic congestive heart failure, likely diastolic #2 persistent atrial fibrillation, status post cardioversion, currently maintaining sinus rhythm #3 prior aortic valve replacement with normal function on echocardiogram done last year #4 hypertension #5 hyperlipidemia #6 mitral regurgitation #7 pulmonary hypertension #8 tricuspid regurgitation Plan: From cardiology perspective we will switch the patient to IV push lasix. Monitor daily weights, I&Os, renal function and electrolytes. Apply SHERMAN wraps to bilateral lower extremities and elevate lower extremities whenever possible. We will continue to follow the patient and provide further recommendations ac cordingly. R[employer] GRADER note has been reviewed, I agree with a documented findings and plan of care. Patient was seen and examined.
[2020-03-16] MEDS: FUROSEMIDE 10 MG/ML 4 ML VIAL IV SCH (15:31)
[2020-03-16] MEDS ORDERED: WARFARIN 2.5 MG TAB PO SCH (18:00)
[2020-03-16] MEDS ORDERED: WARFARIN 3 MG TAB PO SCH (18:00)
[2020-03-17] MEDS: METOPROLOL TARTRATE 50 MG TAB PO SCH ×3 (00:03→17:18)
[2020-03-17] MEDS: FUROSEMIDE 10 MG/ML 4 ML VIAL IV SCH ×3 (00:55→16:42)
[2020-03-17 05:42] LABS: INR 1.7 (<1.2); Prothrombin Time 16.9 sec (9.0-12.0)
[2020-03-17 05:43] LABS: Calcium 8.5 mg/dL (8.4-10.2); Magnesium 2.2 mg/dL (1.6-2.3); Potassium 3.6 mmol/L (3.5-5.1)
[2020-03-17] MEDS: lisinopriL 5 MG TAB PO SCH (08:54)
[2020-03-17] MEDS: FAMOTIDINE 20 MG TAB PO SCH (08:54)
[2020-03-17] MEDS: AMIODARONE 200 MG TAB PO SCH ×2 (08:54→21:59)
--- NOTE | 2020-03-17 11:44 | P.PN ---
Subjective Patient was seen and examined sitting up in the chair in no acute distress. He feels as though his breathing has improved since admission although he does still becomes somewhat dyspneic on exertion. He denies chest pain, dizziness or palpitations. Unfortunately he is back in atrial fibrillation. Blood pressure 99/63 heart rate 94 afebrile maintaining oxygen saturation on nasal cannula. Laboratory data reviewed, INR 1.7, sodium 139, potassium 3.6 and creatinine 1.05. Maintaining a negative fluid balance. GENERAL: Well-appearing, well-nourished and in no acute distress. NECK: Supple without JVD or thyromegaly. LUNGS: Breath sounds clear to auscultation bilaterally. Respiration equal and unlabored. No wheezes, rales or rhonchi. HEART: Irregular rate and rhythm with holosystolic murmur, no rubs or gallops. S1 and S2 heard. EXTREMITIES: Normal range of motion, right lower extremity edema improved with mild noted in the toes, left with ongoing pitting edema up to the mid-tibial region with increased erythema. Doppler pulse to the left and faint pulse to the right. Bilateral jeffy wraps in place. ASSESSMENT Acute on chronic diastolic heart failure Chronic persistent atrial fibrillation status post cardioversion. Currently in A. fib. Valvular heart disease status post aortic valve replacement Severe mitral regurgitation Severe tricuspid regurgitation Hypertension Dyslipidemia Pulmonary hypertension PLAN Decrease amiodarone to 200 mg twice a day. Continue IV diuresis. Repeat BMP and PT/INR in the morning. Give warfarin 5 mg this evening. Further recommendations to follow based upon clinical course. Nurse Practitioner note has been reviewed, I agree with a documented findings and plan of care. Patient was seen and examined. Objective - Vital Signs Vital signs: Vital Signs Temp 97.7 F 03/17/20 07:13 Pulse 82 03/17/20 07:13 Resp 26 H 03/17/20 07:13 BP 105/71 03/17/20 07:13 Pulse Ox 93 L 03/17/20 07:13 Intake & Output 03/16/20 03/17/20 03/17/20 18:59 06:59 18:59 Intake Total 40 515 Output Total 800 1850 Balance -760 -1335 Weight 96.2 kg Intake: Intake, IV Titration 40 160 Amount Sodium Chloride 0.9% 1, 40 160 000 ml @ 20 mls/hr IV . Q24H [facility] Rx#:[id number] Oral 355 Output: Urine 800 1850 Other: Voiding Method Toilet Toilet Urinal Urinal # Voids 1 1 - Labs CBC & Chem 7: 03/13/20 14:36 03/17/20 05:17 Labs: Abnormal Lab Results - Last 24 Hours (Table) 03/17/20 03/17/20 Range/Units 05:17 05:17 PT 16.9 H (9.0-12.0) sec INR 1.7 H (<1.2) Carbon Dioxide 35 H (22-30) mmol/L BUN 37 H (9-20) mg/dL
--- NOTE | 2020-03-17 12:04 | P.PN ---
Subjective Patient is being treated for congestive heart failure chronic diastolic dysfunction with acute exacerbation came in with shortness of breath. Patient continues to have dyspnea on exertion patient is also having atrial fibrillation and does have mitral and tricuspid regurgitation. Patient is believed to have symptomatic A. fib patient's INR is therapeutic. Patient is going for a electric cardioversion today. 03/16/2020 Patient is feeling better patient is sinus rhythm at this time still has him concerned pedal edema patient is on 10 mg/h of IV Lasix today. Patient usually uses 40 mg twice a day of Lasix patient kidney function started getting worse probably can be switched to oral Lasix. Cardiology will evaluate the patient patient's INR is therapeutic and 2.2 patient will be given 3 mg of Coumadin today 03/17/2020 patient continues to be on IV diuretics although his blood pressures borderline.patient's INR is orthopedic patient is getting 5 mg of Coumadin today. Constitutional: Denied any fatigue denied any fever. Cardio vascular: denied any chest pain, palpitations Gastrointestinal denied any nausea vomiting Pulmonary: Does have shortness of breath cough Neurologic denied any new focal deficits All inpatient medications were reviewed and appropriate changes in these medications as dictated in the interval history and assessment and plan. Objective - Vital Signs Vital signs: Vital Signs Temp 98.0 F 03/17/20 09:00 Pulse 94 03/17/20 09:00 Resp 20 03/17/20 09:00 BP 99/63 03/17/20 09:00 Pulse Ox 96 03/17/20 09:00 Intake & Output 03/16/20 03/17/20 03/17/20 18:59 06:59 18:59 Intake Total 40 515 Output Total 800 1850 Balance -760 -1330 Weight 96.2 kg Intake: Intake, IV Titration 40 160 Amount Sodium Chloride 0.9% 1, 40 160 000 ml @ 20 mls/hr IV . Q24H [facility] Rx#:[id number] Oral 355 Output: Urine 800 1850 Other: Voiding Method Toilet Toilet Toilet Urinal Urinal Urinal # Voids 1 1 - Exam PHYSICAL EXAMINATION: GENERAL: The patient is alert and oriented x3, not in any acute distress. Well developed, well nourished. HEENT: Pupils are round and equally reacting to light. EOMI. No scleral icterus. No conjunctival pallor. Normocephalic, atraumatic. No pharyngeal erythema. No thyromegaly. CARDIOVASCULAR: S1 and S2 present. No rubs, or gallops. Irregularly irregular rhythm tachycardic-systolic murmur in the mitral area PULMONARY: Crackles in bilateral lower lung bases ABDOMEN: Soft, nontender, nondistended, normoactive bowel sounds. No palpable organomegaly. MUSCULOSKELETAL: No joint swelling or deformity. EXTREMITIES: No cyanosis, clubbing, bilateral lower extremity edema 2+ predominantly nonpitting NEUROLOGICAL: Gross neurological examination did not reveal any focal deficits. SKIN: No rashes. - Labs CBC & Chem 7: 03/13/20 14:36 03/17/20 05:17 Labs: Abnormal Lab Results - Last 24 Hours (Table) 03/17/20 03/17/20 Range/Units 05:17 05:17 PT 16.9 H (9.0-12.0) sec INR 1.7 H (<1.2) Carbon Dioxide 35 H (22-30) mmol/L BUN 37 H (9-20) mg/dL Assessment and Plan Plan: -Shortness of breath on secondary to congestive heart failure chronic diastolic dysfunction with acute exacerbation patient had a normal EF in the past and also secondary to atrial fibrillation with rapid ventricular rate. patient is on IV Lasix 40 every 8. Blood pressure is borderline -Possible chronic A. fib presently sinus rhythm. Patient is on amiodarone p atient is on Coumadin INR is subtherapeutic patient is sitting 5 mg of Coumadin today -Hypertension -Hyperlipidemia -Valvular heart disease and valvular atrial fibrillation
[2020-03-17] MEDS ORDERED: WARFARIN 5 MG TAB PO SCH (18:00)
[2020-03-17] MEDS: SODIUM CHLORIDE 0.9% 1,000 ML IV SCH (21:57)
[2020-03-18] MEDS: METOPROLOL TARTRATE 50 MG TAB PO SCH ×2 (00:11→09:38)
[2020-03-18] MEDS: FUROSEMIDE 10 MG/ML 4 ML VIAL IV SCH ×2 (01:15→10:34)
[2020-03-18 06:18] LABS: INR 1.5 (<1.2)
[2020-03-18 06:19] LABS: Calcium 8.5 mg/dL (8.4-10.2); Potassium 3.7 mmol/L (3.5-5.1)
[2020-03-18 06:23] VITALS: RESP 22
[2020-03-18 08:29] VITALS: BP 106/76; PULSE 91; TEMP 97.5
--- NOTE | 2020-03-18 09:12 | P.PN ---
Subjective Patient was seen and examined up walking back from the bathroom in no acute distress. He denies shortness of breath. His lower extremity edema is improving. He continues to have SHERMAN wraps on bilaterally. Blood pressure 106/76 heart rate 91 afebrile maintaining oxygen saturation on room air. Laboratory data reviewed, INR 1.5, sodium 139, potassium 3.7, creatinine 1.02. Maintaining a negative fluid balance with 2100 mL of urine output in the previous 24 hours. GENERAL: Well-appearing, well-nourished and in no acute distress. NECK: Supple without JVD or thyromegaly. LUNGS: Breath sounds clear to auscultation bilaterally. Respiration equal and unlabored. No wheezes, rales or rhonchi. HEART: Irregular rate and rhythm with holosystolic murmur, no rubs or gallops. S1 and S2 heard. EXTREMITIES: Normal range of motion, improved bilateral lower extremity edema and erythema. Doppler pulse to the left and faint pulse to the right. Bilateral sherman wraps in place. ASSESSMENT Acute on chronic diastolic heart failure Chronic persistent atrial fibrillation status post cardioversion. Currently in A. fib. Valvular heart disease status post bioprosthetic aortic valve replacement Severe mitral regurgitation Severe tricuspid regurgitation Hypertension Dyslipidemia Pulmonary hypertension PLAN Transitioned to oral diuretics. Give Coumadin 7.5 mg by mouth today before discharge. Resume his normal regimen tomorrow. Nurse Practitioner note has been reviewed, I agree with a documented findings and plan of care. Patient was seen and examined. Objective - Vital Signs Vital signs: Vital Signs Temp 97.5 F L 03/18/20 08:19 Pulse 91 03/18/20 08:19 Resp 22 03/18/20 08:19 BP 106/76 03/18/20 08:19 Pulse Ox 90 L 03/18/20 08:19 Intake & Output 03/17/20 03/18/20 03/18/20 18:59 06:59 18:59 Intake Total 477 240 Output Total 650 1450 Balance -173 -1450 240 Weight 97.4 kg Intake: Oral 477 240 Output: Urine 650 1450 Other: Voiding Method Toilet Toilet Toilet Urinal Urinal Urinal - Labs CBC & Chem 7: 03/13/20 14:36 03/18/20 05:44 Labs: Abnormal Lab Results - Last 24 Hours (Table) 03/18/20 03/18/20 Range/Units 05:44 05:44 PT 15.0 H (9.0-12.0) sec INR 1.5 H (<1.2) Carbon Dioxide 36 H (22-30) mmol/L BUN 33 H (9-20) mg/dL
[2020-03-18] MEDS ORDERED: WARFARIN 7.5 MG TAB PO ONE (09:30)
[2020-03-18] MEDS: FAMOTIDINE 20 MG TAB PO SCH (09:38)
[2020-03-18] MEDS: lisinopriL 5 MG TAB PO SCH (09:38)
[2020-03-18] MEDS: AMIODARONE 200 MG TAB PO SCH (09:38)
--- NOTE | 2020-03-18 13:31 | P.DS ---
Providers Date of admission: 03/14/20 14:20 Expected date of discharge: 03/18/20 Attending physician: Fabian Crain MD Consults: 03/13/20 15:09 Consult Physician Routine Consulting Provider: Sarahi Falk Consult Reason/Comments: chf, a fib Do you want consulting provider notified?: Yes Primary care physician: [facility] Hospital Course: Final diagnosis -Shortness of breath secondary to congestive heart failure chronic diastolic dysfunction with acute exacerbation -Possible chronic A. fib presently sinus rhythm -Coumadin therapy -Hypertension -Hyperlipidemia -Valvular heart disease and valvular atrial fibrillation Discharge disposition Patient is being discharged in a stable condition with guarded prognosis to home. Patient will follow-up with [facility] in the outpatient setting upon discharge. Patient also instructed to follow-up with cardiology Dr. MARK Falk in the outpatient setting. Total time taken is greater than 35 minutes. History of present illness This is a 79-year-old male who was recently admitted with congestive heart failure diastolic dysfunction with acute exacerbation along with some shortness of breath and bilateral lower extremity edema and was being closely monitored. Patient was seen and evaluated by cardiology and was maintained on IV Lasix and will transition to oral 40 mg twice daily. Patient is also maintained on Coumadin and instructed to follow-up with INR checking and continue current dose. Patient's lower extremity swelling improved along with shortness of breath although still having some slight edema noted to bilateral lower extremities the right worse than left. Patient instructed to continue using Mu wraps from the toes up to the knees and elevate lower extremities while at rest. Patient will follow-up with cardiology as scheduled in the outpatient setting. Currently no reports of chest pain, shortness of breath, or palpitations. Patient is afebrile. No reports of nausea or vomiting and patient is tolerating diet. Patient will be discharged home today. On exam vital signs are stable. Temp is 97.5 F, pulse is 91, respirations are 22, blood pressure is 106/76, oxygen saturation is 90% on room air. Cardio S1, S2 are muffled. Respiratory system shows diminished breath sounds at the bases with no wheezing or rhonchi noted. Abdomen is soft and nontender. Nervous system shows no focal deficits. Please refer to medication reconciliation sheet for a list of medications. Patient Condition at Discharge: Stable Plan - Discharge Summary Discharge Rx Participant: No New Discharge Prescriptions: Continue Metoprolol Tartrate [Lopressor] 50 mg PO TID lisinopriL [Zestril] 5 mg PO DAILY #30 tablet Warfarin [Coumadin] 7.5 mg PO SUTUWETHSA@2100 Amiodarone [Cordarone] 200 mg PO BID Furosemide [Lasix] 40 mg PO BID@0900,1600 Warfarin [Coumadin] 5 mg PO MOFR@2100 Discharge Medication List Metoprolol Tartrate [Lopressor] 50 mg PO TID 02/20/17 [History] lisinopriL [Zestril] 5 mg PO DAILY #30 tablet 02/23/17 [Rx] Amiodarone [Cordarone] 200 mg PO BID 02/03/20 [History] Furosemide [Lasix] 40 mg PO BID@0900,1600 02/03/20 [History] Warfarin [Coumadin] 7.5 mg PO SUTUWETHSA@2100 02/03/20 [History] Warfarin [Coumadin] 5 mg PO MOFR@2100 03/13/20 [History] Follow up Appointment(s)/Referral(s): Sarahi Falk MD [Family Provider] - 03/24/20 2:00 pm [facility]inic [Primary Care Provider] - 1-2 days Ambulatory/Diagnostic Orders: Prothrombin Time INR [LAB.AMB] Time Frame: 2 Days, Location: None Selected Patient Instructions/Handouts: Heart Failure (GEN), Electrophysiology Study (DC) Activity/Diet/Wound Care/Special Instructions: Activity Limited until follow-up Follow-up with primary care provider upon discharge Continue to elevate lower extremities while at rest May use Mu wraps of bilateral lower extremities from toes up to knees to aid in reducing swelling Continue with current regimen of Coumadin Repeat labs in 2 days to monitor INR Follow-up with cardiology in the outpatient setting Continue current heart healthy diet and avoid salt Discharge Disposition: HOME SELF-CARE
[2020-03-18] MEDS ORDERED: FUROSEMIDE 40 MG TAB PO SCH (16:00)
== END 2020-03-18 11:44 | disposition home or self-care (01) | DRG 292 ==
LOC: EC 14:04 → 3NCARDOBS 15:19 → OBSVTOIN 03-14 14:20 → 3NCARDOBS 03-14 21:34 → 3SCARD 03-17 21:25 → 3NCARDOBS 03-17 21:36
PROVIDERS: ADMIT Internal Medicine; ATTEND Internal Medicine
DX: I11.0 Hypertensive heart disease with heart failure (principal); I48.19 Other persistent atrial fibrillation; I50.33 Acute on chronic diastolic (congestive) heart failure; I27.20 Pulmonary hypertension, unspecified; I08.1 Rheumatic disorders of both mitral and tricuspid valves; E78.5 Hyperlipidemia, unspecified; Z95.3 Presence of xenogenic heart valve; Z87.891 Personal history of nicotine dependence; Z79.899 Other long term (current) drug therapy; Z79.01 Long term (current) use of anticoagulants; Z80.9 Family history of malignant neoplasm, unspecified
CPT/HCPCS: 36415; 71046; 80048; 80053; 83735; 83880; 84439; 84443; 84481; 84484; 85025; 85610; 85730; 92960; 93005; 93306; 96365; 96375; 99291

== ENCOUNTER 2020-06-13 05:53 | Day surgery (SDC) | payer MEDICARE, BC ==
[2020-06-08 15:46] VITALS: BMI 28.9
[2020-06-13] MEDS ORDERED: SODIUM CHLORIDE 0.9% 1,000 ML IV SCH (05:54)
[2020-06-13] MEDS ORDERED: LACTATED RINGERS 1,000 ML IV SCH (05:54)
[2020-06-13] MEDS ORDERED: SODIUM CHLORIDE 0.9% 500 ML 500 ML IV ONE (06:44)
[2020-06-13 06:48] VITALS: RESP 16; TEMP 98.5
[2020-06-13 06:59] LABS: INR 2.1 (<1.2); Prothrombin Time 20.4 sec (9.0-12.0)
[2020-06-13 07:19] LABS: Calcium 8.8 mg/dL (8.4-10.2); Potassium 3.9 mmol/L (3.5-5.1)
[2020-06-13] MEDS ORDERED: PHENYLEPHRINE-0.9% NACL SYG 1 MG/10 ML SYRINGE ONE (07:29)
[2020-06-13] MEDS ORDERED: PROPOFOL 10 MG/ML 20 ML VIAL IV ONE (07:29)
--- NOTE | 2020-06-13 10:10 | CE ---
CARDIAC ELECTROPHYSIOLOGY REPORT ELECTRICAL CARDIOVERSION: DATE OF SERVICE: 06/13/2020 CLINICAL INFORMATION: Mr. Rinku Rodriguez is an 79-year-old gentleman with a history of aortic valve replacement for severe aortic regurgitation in 2013. He also had significant mitral regurgitation and tricuspid regurgitation with pulmonary hypertension and persistent atrial fibrillation. Recently about 3 weeks ago, he had a mitral valve clip/RALPH system at the [facility] performed. Since then, his symptoms improved remarkably, but he remains in atrial fibrillation. After adequate anticoagulation, he was advised cardioversion and brought in for the procedure electively. PROCEDURE NOTE: Under influence of ultra short-acting intravenous anesthetic agent with the attendance of the anesthesiologist, a single 250 joule shock in a synchronized fashion was delivered with anterior and posterior patches. Patient converted to sinus rhythm with a first-degree AV block, had PACs, was slightly hypotensive requiring some phenylephrine. However, the patient is fully awake neurological intact. Blood pressure is about 94/60, in sinus rhythm with first-degree rate of 56 beats per minute. I am recommending that we decrease amiodarone to 200 mg daily instead of b.i.d., decrease the metoprolol to 50 in the morning and 25 mg in the evening at breakfast and supper respectively. He will be discharged later on today and I will talk to his daughter by phone and he can go home if he is fully awake, but should not drive for 2 days. ROBERT / DENNISE: [id number] /
[2020-06-13 11:16] VITALS: BP 103/71; PULSE 56
--- NOTE | 2020-06-13 12:47 | ECHOF ---
Referral Reason:assess valves MEASUREMENTS -------- HEIGHT: 175.3 cm WEIGHT: 88.3 kg BP: 97/63 IVSd: 2.1 cm (0.6 - 1.1) LVIDd: 4.5 cm (3.9 - 5.3) LVPWd: 2.1 cm (0.6 - 1.1) EDV(Teich): 92 ml IVSs: 2.4 cm LVIDs: 3.4 cm LVPWs: 1.7 cm %IVS Thck: 16 % ESV(Teich): 48 ml EF(Teich): 48 % %FS: 24 % SV(Teich): 44 ml RVIDd: 4.7 cm (< 3.3) LVLd A4C: 8.2 cm LVEDV MOD A4C: 154 ml LVLs A4C: 7.4 cm LVESV MOD A4C: 79 ml LVEF MOD A4C: 49 % SV MOD A4C: 76 ml LVLd A2C: 6.1 cm LVEDV MOD A2C: 71 ml LVLs A2C: 6.3 cm LVESV MOD A2C: 54 ml LVEF MOD A2C: 24 % SV MOD A2C: 17 ml EF Biplane: 41 % LVEDV MOD BP: 119 ml LVESV MOD BP: 70 ml LALs A4C: 7.7 cm LAAs A4C: 35.5 cm LAESV A-L A4C: 141 ml LAESV MOD A4C: 130 ml LALs A2C: 7.0 cm LAAs A2C: 23.3 cm LAESV A-L A2C: 66 ml LAESV MOD A2C: 62 ml LAESV(A-L): 100 ml LAESV Index (A-L): 49.10 ml/m Ao Diam: 4.4 cm (2.0 - 3.7) AV Cusp: 2.1 cm (1.5 - 2.6) LVOT Vmax: 0.69 m/s LVOT maxP.91 mmHg AV Vmax: 1.96 m/s AV maxP.36 mmHg AV Vmax: 2.09 m/s AV Vmean: 1.46 m/s AV maxP.55 mmHg AV meanP.95 mmHg AV Env.Ti: 268 ms AV VTI: 39.1 cm TR Vmax: 3.26 m/s TR maxP.47 mmHg RAP: 5.00 mmHg RVSP: 47.47 mmHg FINDINGS -------- Sinus rhythm. This was a technically difficult study with suboptimal views. The left ventricular size is normal. There is severe concentric left ventricular hypertrophy. The re is mild global hypokinesis of LV . Overall left ventricular systolic function is mild-moderately impaired with, an EF between 40 - 45 %. Septal wall motion is delayed and consistent with prior ca rdiac surgery. The right ventricle is severely enlarged. LA is severely dilated >40 ml/m2 The right atrium is mildly enlarged. xx ml of Lumason was utilized for enhancement of images. Interatrial and interventricular septum intact. Normally functioning bioprosthetic valve. Mild mitral regurgitation is present. Mitral ring annulloplasty is in place. Moderate tricuspid regurgitation present. There is moderate pulmonary hypertension. The right eliseo tricular systolic pressure, as measured by Doppler, is 47.47mmHg. Trace/mild (physiologic) pulmonic regurgitation. 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 IVC Not well visulized. There is no pericardial effusion. CONCLUSIONS -------- 1. The left ventricular size is normal. 2. There is severe concentric left ventricular hypertrophy. 3. There is mild global hypokinesis of LV . 4. Overall left ventricular systolic function is mild-moderately impaired with, an EF between 40 - 45 %. 5. Septal wall motion is delayed and consistent with prior cardiac surgery. 6. The right ventricle is severely enlarged. 7. LA is severely dilated >40 ml/m2 8. The right atrium is mildly enlarged. 9. Normally functioning bioprosthetic valve. 10. Mild mitral regurgitation is present. 11. Mitral ring annulloplasty is in place. 12. Moderate tricuspid regurgitation present. 13. There is moderate pulmonary hypertension. 14. The right ventricular systolic pressure, as measured by Doppler, is 47.47mmHg. 15. Trace/mild (physiologic) pulmonic regurgitation. 16. 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 CAMPAIGN DIRECTOR: Nusrat Adorno, [facility]
[2020-06-14] MEDS ORDERED: METOPROLOL TARTRATE 50 MG TAB PO SCH (09:00)
[2020-06-14] MEDS ORDERED: AMIODARONE 200 MG TAB PO SCH (09:00)
== END 2020-06-13 11:57 | disposition home or self-care (01) ==
LOC: CATHCVL 05:53
PROVIDERS: ATTEND Internal Medicine Interventional Cardiology
DX: I48.19 Other persistent atrial fibrillation (principal); I27.20 Pulmonary hypertension, unspecified; I08.1 Rheumatic disorders of both mitral and tricuspid valves; I25.10 Atherosclerotic heart disease of native coronary artery without angina pectoris; I10 Essential (primary) hypertension; E66.3 Overweight; E78.00 Pure hypercholesterolemia, unspecified; E11.9 Type 2 diabetes mellitus without complications; E78.5 Hyperlipidemia, unspecified; Z79.82 Long term (current) use of aspirin; Z79.899 Other long term (current) drug therapy; Z79.01 Long term (current) use of anticoagulants; Z95.3 Presence of xenogenic heart valve; Z72.0 Tobacco use; Z68.27 Body mass index [BMI] 27.0-27.9, adult
CPT/HCPCS: 92960; 80048; 85610; C8929; J2370; J2704; Q9950; 93306

== ENCOUNTER → 2021-04-19 | Outpatient (CLI) | payer MEDICARE, BC ==
[2021-04-20 06:25] LABS: Anion Gap 12.8 mmol/L (4.00-12.00); BUN/Creat Ratio 20.55 Ratio (12.00-20.00); Blood Urea Nitrogen 41.1 mg/dL (9.0-27.0); Calcium 9.2 mg/dL (8.7-10.3); Carbon Dioxide 28.2 mmol/L (21.6-31.8); Non-African American GFR(CKD) 30.2 (60.0-200.0); Potassium 3.8 mmol/L (3.5-5.5)
== END | disposition home or self-care (01) ==
LOC: LABWHC1 10:17
PROVIDERS: ATTEND Nurse Practitioner Acute Care
DX: Z98.890 Other specified postprocedural states (principal)
CPT/HCPCS: 36415; 80048; 83880